=== PATIENT | female | born 1960 | race African-American/Black ===

== ENCOUNTER 2018-09-09 10:21 | Inpatient (IN) | payer OTHER ==
[2018-09-09 12:31] LABS: Troponin I 0.246 ng/mL (< 0.028)
[2018-09-09 12:50] LABS: HBSAB Concentration 2.49 mIU/mL; HBSAg Index 0.27 S/CO (0-0.99); Hep B Core Total Ab Non-Reactive (NonReactive); Hep B Core Total Index 0.12 S/CO (0-0.79); Hep B Surf AB Non-Reactive (NonReactive); Hep B Surf Ag Non-Reactive S/CO (NonReactive); Hep C IgG Ab Non-Reactive (NonReactive); Hep C Index 0.06 S/CO (0-0.79)
[2018-09-09] MEDS ORDERED: Dextrose 5% in Water 1,000 ML IV PRN (14:13)
[2018-09-09] MEDS ORDERED: Dextrose 50% Abboject 50 ML SYRINGE SLOW IVP PRN (14:13)
[2018-09-09] MEDS ORDERED: Bisacodyl 10 MG SUPP PR PRN (14:13)
[2018-09-09] MEDS ORDERED: Guaifenesin DM 100-10/5 ML UDCUP PO PRN (14:13)
[2018-09-09] MEDS ORDERED: HumaLOG 300 UNITS/3 ML VIAL SC PRN (14:13)
[2018-09-09] MEDS ORDERED: Senokot S 8.6-50 MG TAB PO PRN (14:13)
[2018-09-09 14:57] LABS: Iron 72 ug/dL (50-170); Iron Binding Capacity, Total 200 mcg/dL (265-497)
--- NOTE | 2018-09-09 15:10 | HP ---
REASON FOR ADMISSION: Acute renal failure, severe metabolic acidosis, acute encephalopathy, likely chronic anemia, hyperkalemia, volume overload with likely underlying CHF. HISTORY OF PRESENT ILLNESS: Please note majority of this history is obtained by talking to the patient's sister, who is here at bedside. They live together. She has been calling the Lord all the time from last 1 week or so. Her mind was not right. She was confused per sister. She tried to go out and sit in the porch in the sun despite the temperature going up to 90 degrees. She also mentions that a month back, she had gone to see her primary care physician and was told that she had kidney issues. She has a next followup in the next few days. She also has had a stent placed 4 months back at [facility] in [place]. Has complaints of shortness of breath, but says she ambulates by herself. She does not know if she had a stroke before. No complaints of chest pain or palpitation. No complaints of back pain or abdominal pain. No diarrhea. No nausea or vomiting. No fever. No cough or expectoration. PAST MEDICAL AND SURGICAL HISTORY: Likely CKD, coronary artery disease with stent placed 4 months back in [place] at [facility], diabetes mellitus type 2, hypertension, dyslipidemia, history of asthma, and left eye surgery in the past. CURRENT MEDICATIONS: The patient is on; 1. Potassium chloride 20 mEq p.o. daily. 2. Indapamide 2.5 mg daily. 3. Tradjenta 5 mg q.a.m. 4. Atorvastatin 10 mg p.o. at bedtime. 5. Lasix 40 mg p.o. daily. 6. Carvedilol 6.25 mg p.o. twice daily. 7. Metoprolol 25 mg daily. 8. Aspirin 81 mg p.o. daily. 9. Procardia XL 90 mg p.o. daily. ALLERGIES: ALLERGIC TO PENICILLIN. PERSONAL HISTORY: Does not abuse alcohol or drugs. No history of smoking. FAMILY HISTORY: Mother at the age of 59 years. She had known history of kidney cancer. Father of natural causes, apparently at 63 years of age. He also had tracheostomy, which they do not recall the exact cause and the exact word is (hole in the neck). Code status is full. Power of securities attorney is her son, Mr. Rosalia Ramirez. REVIEW OF SYSTEMS: CONSTITUTIONAL: Negative for weight loss or gain, ability to conduct usual activities. SKIN: Negative for rash, itching. EYES: Negative for double vision, pain. ENT/MOUTH: Negative for nose bleeding, neck stiffness, pain, tenderness. CARDIOVASCULAR: Negative for palpitations, dyspnea on exertion, orthopnea. RESPIRATORY: Negative for shortness of breath, wheezing, cough, hemoptysis, fever or night sweats. GASTROINTESTINAL: Negative for poor appetite, abdominal pain, heartburn, nausea , vomiting, constipation, or diarrhea. GENITOURINARY: Negative for urgency, frequency, dysuria, nocturia. MUSCULOSKELETAL: Negative for pain, swelling. NEUROLOGIC/PSYCHIATRIC: Negative for anxiety, depression. ALLERGY/IMMUNOLOGIC: Negative for skin rash, bleeding tendency. PHYSICAL EXAMINATION: GENERAL: The patient is a 58-year-old female, who is currently not in any acute distress. Responds well to verbal questions. VITAL SIGNS: Blood pressure 136/94; pulse 66 per minute; respiratory rate 20 per minute; temperature 94.2, rectal; and saturating 98% on room air. NECK: Supple. No elevated JVD. HEENT: Eyes; extraocular muscles intact. Pupils reacting to light. Oral cavity, mucous membranes are dry. No exudates or congestion. CARDIOVASCULAR SYSTEM: S1 and S2 heard. Regular rhythm. RESPIRATORY: Air entry 1+ bilateral. Scattered rales plus in the infrascapular area. ABDOMEN: Soft. Bowel sounds heard. No tenderness, rigidity, or guarding. EXTREMITIES: No peripheral edema or calf tenderness. VASCULAR SYSTEM: Peripheral pulses 1+ bilateral. No ischemic ulcers or gangrene. CENTRAL NERVOUS SYSTEM: The patient is currently responding well to verbal questions. She is not fully oriented, especially takes a long time to recall events. No focal deficits noted. Moves all 4 extremities. PSYCHIATRIC SYSTEM: No obvious hallucinations or delusions. LABORATORY DATA: H and H of 8 and 26, platelet count is 198, MCV is 94, and white count of 10 with 69% neutrophils. Venous blood gas done shows a pH of 7.03, pCO2 of 25, pO2 of 38, and bicarb of 6.9. Serum sodium is 140, potassium 5.1, serum bicarb is less than 8, serum chloride 117, BUN 154, creatinine 5.5, serum glucose 111, lactic acid 0.5, AST 32, ALT 56, alkaline phosphatase 680, and T-bili 0.9. CK levels 44, CK-MB 6.6, and troponin I 0.23. BNP 2112. Albumin 3.6. TSH 1.53. IMAGING DATA: Chest x-ray done shows pulmonary vascular congestion. CT brain without contrast shows left occipital and posterior parietal old infarct. Atrophy and chronic white matter ischemic changes are seen. No mass or bleed. EKG done shows sinus rhythm at 64 beats per minute with PVC seen. There is T inversion seen in V5, V6. QRS duration is 130 milliseconds, corrected QT is 480 milliseconds. CLINICAL IMPRESSION AND PLAN: The patient will be admitted to [facility] for new onset acute kidney injury with severe metabolic acidosis. The patient has had cardiac cath with stenting done 4 months back and was told she has kidney issues a month back. Prior to this, she had not known she had any kidney problems as such. We will hydrate her with half NS at 50 mL per hour. The patient also has volume overload and will be closely monitored. I have discussed her findings with Dr. Rehman for Nephrology and Dr. Boston, who is here to place hemodialysis catheter. She will be shortly dialyzed. In view of her recent stent, we will place her on aspirin, Plavix, and Lipitor. Small dose of Coreg will be continued as well. Nebulizers q.6 hourly. Echo with 2D Doppler for left ventricular function. Code status is full. I have discussed with the patient at bedside and her two sisters. We will obtain PT/OT evaluations as well as the patient was ambulating before. Her overall prognosis is guarded and we will closely monitor her in [facility] for now. Job ID: [id number] [facility]
[2018-09-09 15:16] LABS: Actual Bicarbonate (HCO3a) 10.2 mEq/L (22-28); Base Excess (BEa) -16.2 mEq/L (-2.0 to +3.0); CO2 Tension 26.4 mmHg (35.0-45.0); Carboxyhemoglobin (COHb) 1.3 gm% (0.0-3.0); Hemoglobin (Hb) 8.3 g/dL (12.0-16.0); O2 Tension (PaO2) 68.9 mmHg (80.0-100.0); Potassium - ABG Lab 4.61 mmol/L (3.70-5.30)
[2018-09-09 15:17] LABS: Puncture Site RRA; pH, Arterial 7.21 (7.35-7.45)
--- NOTE | 2018-09-09 15:49 | OP ---
DATE OF PROCEDURE: 09/09/2018 PREOPERATIVE DIAGNOSES: 1. Acute renal failure. 2. Severe acute metabolic acidosis secondary to acute renal failure. POSTOPERATIVE DIAGNOSES: 1. Acute renal failure. 2. Severe acute metabolic acidosis secondary to acute renal failure. PROCEDURE PERFORMED: Placement of right femoral Trialysis catheter for temporary dialysis. INDICATIONS FOR PROCEDURE: A 58-year-old woman, presented with malaise. Clinical examination was consistent with acute renal failure. I was asked to place a temporary dialysis catheter for emergent dialysis. DESCRIPTION OF PROCEDURE: Informed consent was obtained from the patient, who was placed in supine position. The right groin was sterilely prepped and draped in usual fashion. The right femoral artery was palpated and the skin medial to this was anesthetized with 1% lidocaine. Right femoral vein was cannulated with an 18-gauge introducer needle returning dark venous blood. Guidewire was passed through the needle and advanced to the right femoral vein without resistance. Needle was withdrawn over the guidewire. A stab incision was made adjacent to the guidewire using 11 scalpel. Dilator was passed over the guidewire dilating the subcutaneous tissue. The dilator was removed and a triple-lumen Trialysis catheter was advanced over the guidewire and placed in the right femoral vein down to the hub without resistance. Guidewire was removed. Dark venous blood was aspirated from all three ports, which were flushed first with saline followed by heparin. The catheter was secured to right groin using 3-0 nylon suture at two points. Sterile dressings were applied. The patient tolerated the procedure without any apparent complication and remains hemodynamically stable following completion of procedure. Job ID: [id number] [facility]
--- NOTE | 2018-09-09 16:30 | ULT ---
Renal sonogram HISTORY: Renal insufficiency. FINDINGS: Right kidney measures up to 10.0 cm length. No hydronephrosis. Multiple cortical cysts are present, measuring up to 1.9 cm at the superior pole. Urinary bladder is well distended without focal abnormality evident. The left kidney measures up to 11.6 cm without hydronephrosis. At the superior pole is a 2.0 cm cyst. IMPRESSION: No evidence of urinary tract obstruction. Small renal cysts
--- NOTE | 2018-09-09 18:00 | CON ---
DATE OF CONSULTATION: 09/09/2018 HISTORY OF PRESENT ILLNESS: Ms. Pereira is a very pleasant woman, who is admitted with acute renal failure. She is only a fair historian. 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 She could not tell me how long she has been retired. She has a doctor in the [place] area whom she sees. She says she has never been told she had kidney problems. She has been seen at [facility] in [place] in the past and had coronary stent placed. She has no complaints currently. PAST MEDICAL HISTORY: Remarkable for; 1. Diabetes for many years. She denies ever having been told she had any end- organ damage. 2. Hypertension. 3. History of lipid disorder. 4. Reported history of asthma. 5. History of eye surgery on the left. MEDICATIONS: Have been reviewed. SOCIAL HISTORY: She is a nonsmoker, nondrinker, nondrug user. ALLERGIES: SHE HAS A HISTORY OF ALLERGIES TO PENICILLIN. FAMILY HISTORY: There is a family history of cancer. REVIEW OF SYSTEMS: Ten point review of systems completed, otherwise negative. PHYSICAL EXAMINATION: GENERAL: She is very pleasant and actually looks much better than her blood gas would lead me to believe. VITAL SIGNS: Heart rates in the 70s, respiratory rate in the 20s, blood pressure has been in the 130 to 140 range while she is in the emergency department. HEENT: Sclerae are anicteric. Extraocular movements are full. Nose and throat are clear. NECK: Supple. LUNGS: Clear. HEART: Regular rhythm. S1 and S2 are normal. ABDOMEN: Soft and nontender. EXTREMITIES: Without clubbing, cyanosis, or edema. LABORATORY DATA: An arterial blood gas done on arrival in the intermediate care unit shows a pH of 7.21, CO2 of 26, PO2 of 68 on room air. Sodium 140, potassium 5.1, chloride 117, bicarb less than 8, BUN 154, creatinine 5.57, glucose 111. Her iron level is 72, TIBC is 200, consistent with chronic disease. ALT is 56, alkaline phosphatase is 680. BNP is 2112. Total serum protein is 8.4, globulin is 4.8. Hepatitis panel was negative with the exception of antibody of 2.4, which I do not felt to be a protective level. IMPRESSION: 1. Acute on chronic kidney disease with renal failure. A dialysis catheter has been placed. 2. Severe metabolic acidosis that is well compensated for, I guess because she is in her 50s. She has no signs of muscle fatigue. No need for intubation at this time. I suspect her acid-base disorder will resolve with dialysis. 3. Diabetes. 4. Anemia of chronic disease. 5. Isolated elevation of alkaline phosphatase. 6. Elevated serum protein and serum globulin fraction. She needs serum protein electrophoresis. We will follow with the other physicians caring for her. If she improves overnight with dialysis, Surgery should be consulted for long-term access and she could be transferred out of the intermediate care tomorrow if she remains stable. This is a 50-minute consult, with greater than 50% of the time spent on the unit coordinating care. Job ID: [id number] [facility]
[2018-09-09] MEDS: Carvedilol 6.25 MG TAB PO SCH (18:24)
[2018-09-09 18:51] LABS: Actual Bicarbonate (HCO3a) 15.3 mEq/L (22-28); Base Excess (BEa) -7.2 mEq/L (-2.0 to +3.0); Calcium, Ionized 1.12 mmol/L (1.12-1.30); Carboxyhemoglobin (COHb) 0.2 gm% (0.0-3.0); Hemoglobin (Hb) 8.7 g/dL (12.0-16.0); Potassium - ABG Lab 3.47 mmol/L (3.70-5.30); pH, Arterial 7.46 (7.35-7.45)
[2018-09-09 19:01] LABS: Puncture Site RBRACH
[2018-09-09 19:45] LABS: Anion Gap 20 mmol/L (10-20); BUN (Urea Nitrogen) 87 mg/dL (9.8-20.1); Calc. Creatinine Clearance 25 mL/min (70-130); Calcium 9.1 mg/dL (7.8-10.44); Carbon Dioxide 16 mmol/L (22-29); Chloride 108 mmol/L (98-107); Estimated GFR-MDRD 19; Glucose 106 mg/dL (70-105); Potassium 3.5 mmol/L (3.5-5.1); Sodium 140 mmol/L (136-145)
[2018-09-09 20:14] LABS: #Eosinphils 0.1 thou/uL (0.0-0.7); #Lymphocytes 1.7 thou/uL (1.20-3.40); #Monocytes 0.4 thou/uL (0.11-0.59); %Basophils 0.3 % (0.0-1.0); %Eosinophils 0.8 % (0.0-10.0); %Lymphocytes 18.3 % (21.0-51.0); %Monocytes 4.2 % (0.0-10.0); %Neutrophils 76.4 % (42.0-75.0); Hemoglobin 8.3 g/dL (12.0-16.0); Mean Corpuscular HGB CONC 32.7 g/dL (32.0-36.0); Mean Corpuscular Hemoglobin 30.3 pg (27.0-31.0); Mean Corpuscular Volume 92.6 fL (78.0-98.0); Platelet Count 203 thou/uL (130-400); RBC Distribution Width 12.9 % (11.5-14.5); Red Blood Cell (RBC) Count 2.73 mill/uL (4.20-5.40); White Blood Cell (WBC) Count 9.1 thou/uL (4.8-10.8)
[2018-09-09] MEDS: Atorvastatin Calcium 20 MG TAB PO SCH (20:49)
[2018-09-09] MEDS: Heparin 5,000 UNITS/ML VIAL SC SCH (20:49)
--- NOTE | 2018-09-09 20:59 | CON ---
DATE OF CONSULTATION: 09/09/2018 CONSULTING PHYSICIAN: Dr. Marlow. REASON FOR CONSULTATION: MANA. REASON FOR ADMISSION: Altered mentation. HISTORY OF PRESENT ILLNESS: A 58-year-old female, history of type 2 diabetes, hypertension, hyperlipidemia, came to the hospital with above complaints and Nephrology consulted for elevated creatinine. The patient is confused and not able to give a good history, and most of the records were obtained from the review of the records. PAST MEDICAL HISTORY: Positive for type 2 diabetes, hyperlipidemia, hypertension, COPD, asthma. PAST SURGICAL HISTORY: Left eye surgery. HOME MEDICATIONS: 1. Potassium. 2. Indapamide. 3. Tradjenta. 4. Atorvastatin. 5. Furosemide. ALLERGIES: NO KNOWN DRUG ALLERGIES. SOCIAL HISTORY: No smoking, alcohol, or illicit drug abuse. FAMILY HISTORY: No history of kidney disease. REVIEW OF SYSTEMS: Could not be obtained due to confusion. PHYSICAL EXAMINATION: GENERAL: This is a well-built female, confused. VITAL SIGNS: Temperature 98.6, pulse 65, respiratory rate 22, blood pressure 137/93. HEENT: Atraumatic, normocephalic. Oral mucosa is moist. NECK: Supple. CV: S1 and S2 heard. Rate and rhythm regular. RESPIRATORY: Clear. GI: Abdomen is soft MUSCULOSKELETAL: 1+ edema. DERMATOLOGIC: No skin rash. NEUROLOGIC: Confused. LABORATORY DATA: Hemoglobin is 8.3, potassium 5.8, bicarb was 8, creatinine 5.57. ASSESSMENT AND PLAN: 1. Acute kidney injury on chronic kidney disease with severe hyperkalemia and acidosis and uremic encephalopathy. Plan is to start on dialysis. 2. Cardiorenal syndrome. We will have fluid removal as tolerated. 3. Edema. 4. Anemia. We will check CKD labs. Plan is to start on dialysis and we will follow. Thank you for the consult. Job ID: [id number]
[2018-09-09] MEDS ORDERED: Magnesium 2 GM/50 ML 2 GM in Premix Bag 1 BAG IVPB SCH (23:00)
[2018-09-10] MEDS: Ondansetron PF 4 MG/2 ML Vial IVP PRN ×2 (00:35→12:43)
[2018-09-10] MEDS: Metoclopramide HCl 10 MG/2 ML VIAL IVP PRN ×2 (01:38→11:23)
[2018-09-10 04:31] LABS: #Lymphocytes 1.3 thou/uL (1.20-3.40); #Monocytes 0.5 thou/uL (0.11-0.59); #Neutrophils 7.6 thou/uL (1.40-6.50); %Basophils 0.2 % (0.0-1.0); %Eosinophils 0.3 % (0.0-10.0); %Lymphocytes 13.6 % (21.0-51.0); %Neutrophils 80.9 % (42.0-75.0); Hemoglobin 8.5 g/dL (12.0-16.0); Mean Corpuscular HGB CONC 32.6 g/dL (32.0-36.0); Mean Corpuscular Hemoglobin 30.3 pg (27.0-31.0); Mean Corpuscular Volume 92.9 fL (78.0-98.0); Mean Platelet Volume 9.4 fL (7.4-10.4); Platelet Count 209 thou/uL (130-400); RBC Distribution Width 12.9 % (11.5-14.5); White Blood Cell (WBC) Count 9.4 thou/uL (4.8-10.8)
[2018-09-10 04:56] LABS: Albumin 3.5 g/dL (3.5-5.0); Anion Gap 22 mmol/L (10-20); BUN (Urea Nitrogen) 94 mg/dL (9.8-20.1); BUN/Creatinine Ratio 27.41; Calc. Creatinine Clearance 22 mL/min (70-130); Calcium 8.8 mg/dL (7.8-10.44); Carbon Dioxide 13 mmol/L (22-29); Chloride 110 mmol/L (98-107); Estimated GFR-MDRD 17; Glucose 102 mg/dL (70-105); Magnesium 2.1 mg/dL (1.6-2.6); Phosphorus 4.9 mg/dL (2.3-4.7); Potassium 3.8 mmol/L (3.5-5.1); Sodium 141 mmol/L (136-145)
--- NOTE | 2018-09-10 10:01 | PRG ---
DATE OF SERVICE: 09/10/2018 SUBJECTIVE: Ms. Pereira is doing well with dialysis. Her acid-base disorder was fixed immediately. Her post dialysis blood gas showed pH 7.46, CO2 22, and pO2 of 71. OBJECTIVE: VITAL SIGNS: Remained stable. She is afebrile. Heart rate is in the 90s. Oximetry is 100% on 2 L. Blood pressure is actually high at 173/102. LABORATORY DATA: Sodium is 141, potassium 3.8, chloride 110, BUN 94, creatinine 3.43. Her bicarb 13 this morning. PLAN: I would think she would benefit from dialysis again today given her ongoing acid-base disorder, her anion gap is 18 today. She appears to be medically stable. We will see her as needed. Job ID: [id number]
[2018-09-10] MEDS ORDERED: hydrALAZINE 20 MG/ML VIAL SLOW IVP SCH (11:45)
[2018-09-10] MEDS ORDERED: Epoetin (ESRD) 20,000 UNITS/ML SC SCH (13:45)
[2018-09-10] MEDS: Heparin 5,000 UNITS/ML VIAL SC SCH ×2 (13:58→20:59)
[2018-09-10] MEDS: Clopidogrel Bisulfate 75 MG TAB PO SCH (14:00)
[2018-09-10] MEDS ORDERED: EPOETIN ALFA-EPBX (ESRD) 10,000 UNIT/ML VIAL SC SCH (14:00)
[2018-09-10] MEDS: Aspirin Chewable 81 MG TAB PO SCH (14:01)
[2018-09-10] MEDS: Carvedilol 6.25 MG TAB PO SCH ×2 (14:15→21:36)
--- NOTE | 2018-09-10 14:16 | PRG ---
DATE OF SERVICE: 09/10/2018 SUBJECTIVE: Patient was seen and examined at bedside and overnight events noted. Patient denies any shortness of breath or chest pain or palpitation. No history of nausea or vomiting or diarrhea or fever or chills or cramps. OBJECTIVE: GENERAL: This is a well-built female in no apparent distress. VITAL SIGNS: Temperature . Heart rate 91. Respiratory rate 18. Blood pressure 158/92. HEENT: Atraumatic, normocephalic. Oral mucosa is moist NECK: Supple. CARDIOVASCULAR: S1, S2 heard. Rate and rhythm regular. RESPIRATORY: Clear to auscultation. GASTROINTESTINAL: Abdomen is soft. MUSCULOSKELETAL: No tenderness. No edema. DERMATOLOGIC: No skin rash. NEUROLOGIC: Alert and awake and oriented X3. No focal neurologic deficits. Moving all the extremities. PSYCHIATRIC: Mood and affect normal. LABORATORY DATA: Potassium is 3.8, BUN is 94, creatinine is 3.4. Vitamin D 8.2, PTH is . ASSESSMENT AND PLAN: 1. Acute kidney injury on chronic kidney disease, stage unknown. Dependent currently on dialysis. The patient had dialysis today, tolerated well. 2. Uremic encephalopathy, possibly getting better. 3. Severe hyperkalemia, better. 4. Severe acidosis, getting better. We will monitor. 5. Vitamin D deficiency with secondary hyperparathyroidism and started on vitamin D. 6. Anemia of chronic kidney disease. We will add Epogen. Iron levels are adequate. 7. Plan is to continue on dialysis with close monitoring of renal function and urine output. We will follow. Baseline is not known at this point. Job ID: [id number]
[2018-09-10] MEDS ORDERED: Heparin 10,000 UNITS/1 ML VIAL ONE (15:00)
--- NOTE | 2018-09-10 15:51 | PDOC.PN ---
- Subjective Encounter Start Date: 09/10/18 Encounter Start Time: 10:30 Subjective: is getting HD -: fully oriented this am, no sob or abd pain -: no nausea - Objective Resuscitation Status - Order Detail: 09/09/18 14:08 Resuscitation Status Routine Resuscitation Status: FULL: Full Resuscitation MAR Reviewed: Yes Vital Signs & Weight: Vital Signs (12 hours) Temp Pulse Pulse Pulse Pulse Resp BP 09/10/18 14:15 150/105 H 09/10/18 13:31 101 H 21 H 09/10/18 13:10 92 92 09/10/18 13:09 90 90 89 09/10/18 12:43 91 09/10/18 11:33 98.2 F 09/10/18 07:51 97.6 F 91 19 BP BP BP Pulse Ox Pulse Ox Pulse Ox Pulse Ox 09/10/18 14:15 09/10/18 13:31 100 09/10/18 13:10 154/101 H 150/77 H 94 L 98 09/10/18 13:09 154/101 H 145/99 H 150/77 H 100 99 99 09/10/18 12:43 09/10/18 11:33 09/10/18 07:51 100 Weight Admit Weight 166 lb 14.239 oz Weight 157 lb Most Recent Monitor Data Heart Rate from ECG 88 NIBP 173/102 NIBP BP-Mean 125 Respiration from ECG 26 SpO2 96 I&O: 09/09/18 09/10/18 09/11/18 06:59 06:59 06:59 Intake Total 100 Balance 100 Result Diagrams: 09/10/18 04:12 09/10/18 04:12 Additional Labs: Accuchecks 09/10/18 09/10/18 09/09/18 10:39 05:49 20:38 POC Glucose 111 H 109 82 09/09/18 09/09/18 18:47 16:10 POC Glucose 110 187 H Phys Exam - Physical Examination HEENT: PERRLA, sclera anicteric dry mucosa Neck: no JVD, supple Respiratory: no wheezing, no rales Cardiovascular: RRR, no significant murmur has subcut emphysema over chest wall Gastrointestinal: soft, non-tender, positive bowel sounds Musculoskeletal: no edema, pulses present Neurological: non-focal, moves all 4 limbs Psychiatric: normal affect, A&O x 3 Dx/Plan (1) Acute renal failure Status: Acute Qualifiers: Acute renal failure type: unspecified Qualified Code(s): N17.9 - Acute kidney failure, unspecified (2) Metabolic acidosis Code(s): E87.2 - ACIDOSIS Status: Acute (3) CAD (coronary artery disease) Code(s): I25.10 - ATHSCL HEART DISEASE OF [place] CORONARY ARTERY W/O ANG PCTRS Status: Chronic Qualifiers: Coronary Disease-Associated Artery/Lesion type: [place] artery [place] vs. transplanted heart: [place] heart Associated angina: without angina Qualified Code(s): I25.10 - Atherosclerotic heart disease of [place] coronary artery without angina pectoris (4) HTN (hypertension) Code(s): I10 - ESSENTIAL (PRIMARY) HYPERTENSION Status: Chronic Qualifiers: Hypertension type: essential hypertension Qualified Code(s): I10 - Essential (primary) hypertension (5) Dyslipidemia Code(s): E78.5 - HYPERLIPIDEMIA, UNSPECIFIED Status: Chronic (6) Hyperkalemia Code(s): E87.5 - HYPERKALEMIA Status: Resolved (7) H/O: CVA (cerebrovascular accident) Code(s): Z86.73 - PRSNL HX OF TIA (TIA), AND CEREB INFRC W/O RESID DEFICITS Status: Chronic - Plan had back to back HD, acidosis is slowly resolving -: had confusion after HD yesterday, had 700ml removed yest -: will have 2 liters removed today -: will have PT/OT to mobilize her after HD -: has mild chest wall subcut emphysema? * . continue asp, plavix, lipitor, coreg and nebs. D/w patient and youngest sister at bedside Review of Systems - Medications/Allergies Allergies/Adverse Reactions: Allergies Allergy/AdvReac Type Severity Reaction Status Date / Time Penicillins Allergy Verified 09/09/18 15:25 Medications: Current Medications Acetaminophen (Tylenol) 650 mg PO Q4H PRN PRN Reason: Headache/Fever/Mild Pain (1-3) Albuterol/Ipratropium (Duoneb) 3 ml NEB [id number] ROBBIE Last Admin: 09/10/18 13:31 Dose: 3 ml Aspirin (Aspirin Chewable) 81 mg PO DAILY ROBBIE Last Admin: 09/10/18 14:01 Dose: 81 mg Atorvastatin Calcium (Lipitor) 20 mg PO HS ROBBIE Last Admin: 09/09/18 20:49 Dose: Not Given Bisacodyl (Dulcolax) 10 mg MA DAILYPRN PRN PRN Reason: Constipation Carvedilol (Coreg) 6.25 mg PO BID-[facility] Last Admin: 09/10/18 14:15 Dose: 6.25 mg Cholecalciferol (Vitamin D3) 2,000 units PO BID [facility] Clopidogrel Bisulfate (Plavix) 75 mg PO DAILY [facility] Last Admin: 09/10/18 14:00 Dose: 75 mg Dextrose/Water (Dextrose 50%) 25 gm SLOW IVP PRN PRN PRN Reason: Hypoglycemia Epoetin Doyle-epbx (Retacrit) 10,000 unit SC Q7D [facility] Last Admin: 09/10/18 14:47 Dose: 10,000 unit Glucagon (Glucagon) 1 mg IM PRN PRN PRN Reason: Hypoglycemia Guaifenesin/Dextromethorphan (Robitussin Dm) 15 ml PO Q4H PRN PRN Reason: Cough Heparin Sodium (Porcine) (Heparin) 5,000 units SC BID [facility] Last Admin: 09/10/18 13:58 Dose: Not Given Hydralazine HCl (Apresoline) 10 mg SLOW IVP Q4H PRN PRN Reason: SBP Greater Than 170 Dextrose/Water (D5w) 1,000 mls @ 0 mls/hr IV .Q0M PRN PRN Reason: Hypoglycemia Insulin Human Lispro (Humalog) 0 units SC .MODERATE SLIDING SC PRN PRN Reason: Moderate Correctional Scale Insulin Human Lispro (Humalog) 0 units SC .BEDTIME SLIDING SC PRN PRN Reason: Bedtime Correctional Scale Metoclopramide HCl (Reglan) 10 mg IVP Q6H PRN PRN Reason: Nausea/Vomiting Last Admin: 09/10/18 11:23 Dose: 10 mg Ondansetron HCl (Zofran) 4 mg IVP Q6H PRN PRN Reason: Nausea/Vomiting Last Admin: 09/10/18 12:43 Dose: 4 mg Pantoprazole Sodium (Protonix) 40 mg PO DAILY [facility] Last Admin: 09/10/18 14:16 Dose: 40 mg Senna/Docusate Sodium (Senokot S) 2 tab PO BID PRN PRN Reason: Constipation Sodium Chloride (Flush - Normal Saline) 10 ml IVF Q12HR ROBBIE Sodium Chloride (Flush - Normal Saline) 10 ml IVF PRN PRN PRN Reason: Saline Flush
[2018-09-10] MEDS ORDERED: hydrALAZINE 20 MG/ML VIAL SLOW IVP PRN (16:00)
[2018-09-10] MEDS: Atorvastatin Calcium 20 MG TAB PO SCH ×2 (21:00→21:36)
[2018-09-11] MEDS ORDERED: Cepastat Lozenges 1 LOZ PO PRN (00:09)
[2018-09-11 05:10] LABS: Albumin 3.3 g/dL (3.5-5.0); Anion Gap 17 mmol/L (10-20); BUN (Urea Nitrogen) 68 mg/dL (9.8-20.1); BUN/Creatinine Ratio 20.54; Calc. Creatinine Clearance 21 mL/min (70-130); Calcium 9.6 mg/dL (7.8-10.44); Carbon Dioxide 22 mmol/L (22-29); Chloride 107 mmol/L (98-107); Estimated GFR-MDRD 17; Glucose 130 mg/dL (70-105); Magnesium 1.8 mg/dL (1.6-2.6); Phosphorus 4.6 mg/dL (2.3-4.7); Potassium 3.7 mmol/L (3.5-5.1); Sodium 142 mmol/L (136-145)
[2018-09-11] MEDS: hydrALAZINE 25 MG TAB PO SCH ×3 (09:32→21:20)
[2018-09-11] MEDS: Aspirin Chewable 81 MG TAB PO SCH (09:32)
[2018-09-11] MEDS: Clopidogrel Bisulfate 75 MG TAB PO SCH (09:32)
[2018-09-11] MEDS: Isosorbide Dinitrate 20 MG TAB PO SCH ×3 (09:32→21:20)
[2018-09-11] MEDS: Heparin 5,000 UNITS/ML VIAL SC SCH ×2 (09:33→21:20)
[2018-09-11] MEDS: Carvedilol 6.25 MG TAB PO SCH (09:33)
--- NOTE | 2018-09-11 13:15 | CON ---
DATE OF CONSULTATION: 09/11/2018 REASON FOR CONSULTATION: Cardiomyopathy and dysrhythmia. PRIMARY MOLDER INFLATED BALL: None. HISTORY OF PRESENT ILLNESS: Ms. Pereira is a 58-year-old woman with previous history of CAD, status post stent placement. She also appears to have a history of cardiomyopathy. She is a very poor historian. Most of the history is obtained from her sister. This is over the phone. She re-presented to the hospital with encephalopathy and metabolic acidosis. From a CV standpoint, she states she had a stent placement 1 to 1-1/2 years ago. Vessels were unknown. Her sister does state she remembers having told she had a weak heart. She has also had SVT as well as pauses less than 3 seconds noted, but likely related to electrolyte disturbance. She does not complain of chest pain, pressure, or associated symptoms. PAST MEDICAL HISTORY: CAD, status post stent placement; hypertension; hyperlipidemia; diabetes mellitus; chronic kidney disease; eye surgery; asthma. HOME MEDICATIONS: Include 1. Tradjenta. 2. Atorvastatin. 3. Potassium. 4. Indapamide. 5. Lasix. 6. Carvedilol. 7. Aspirin. 8. Procardia. ALLERGIES: PENICILLIN. SOCIAL HISTORY: No current tobacco or alcohol use. REVIEW OF SYSTEM: Ten-point review of systems is reviewed and as above, otherwise negative. PHYSICAL EXAMINATION: GENERAL: Patient is a pleasant female who is in no acute distress. The patient appears their stated age. VITAL SIGNS: Blood pressure 160/64, pulse 89, respirations 20. NEUROLOGIC: The patient is alert and oriented x3 with no focal neurologic deficits. HEENT: Sclerae without icterus. Mouth has moist mucous membranes with normal pallor. NECK: No JVD. Carotid upstroke brisk. No bruits bilaterally. LUNGS: Clear to auscultation with unlabored respirations. BACK: No scoliosis or kyphosis. CARDIAC: Regular rate and rhythm with normal S1 and S2. No S3 or S4 noted. No significant rubs, murmurs, thrills, or gallops noted throughout the precordium. PMI is not displaced. There is no parasternal heave. ABDOMEN: Soft, nontender, nondistended. No peritoneal signs present. No hepatosplenomegaly. No abnormal striae. EXTREMITIES: 2+ femoral and 2+ dorsalis pedis pulses. No cyanosis, clubbing, or edema. SKIN: No gross abnormalities. Echo Doppler shows LVEF 30% to 35% with moderate MR present. Severely elevated pulmonary pressures are noted. PERTINENT LABORATORY DATA: Hemoglobin 8.5. Creatinine 3.3, BUN 68, albumin 3.3. Initial CO2 of 16, magnesium of 1.3, now 2.1. IMPRESSION: 1. Cardiomyopathy, likely ischemic. 2. Chronic kidney disease. 3. Coronary artery disease. 4. Status post stent placement. RECOMMENDATIONS: The patient has had dysrhythmia as noted suggesting supraventricular tachycardia as well as pauses. 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 I will discuss with EP on their return on Thursday. 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 This may also be due to electrolyte derangement. At this point, we recommend close monitoring. Would avoid beta chioma therapy given her pauses and intermittent bradycardia. We may consider digoxin, but may end up with bradycardia. At this point, she does not appear to have symptoms from her dysrhythmia. She is currently on Coreg 6.25 b.i.d., we will decrease to 3.125 b.i.d. Job ID: [id number]
--- NOTE | 2018-09-11 13:45 | PDOC.PN ---
- Subjective Encounter Start Date: 09/11/18 Encounter Start Time: 08:00 Subjective: awake, no sob or palp or chest pain - Objective Resuscitation Status - Order Detail: 09/09/18 14:08 Resuscitation Status Routine Resuscitation Status: FULL: Full Resuscitation MAR Reviewed: Yes Vital Signs & Weight: Vital Signs (12 hours) Temp Pulse Resp BP Pulse Ox 09/11/18 11:05 97.3 F L 09/11/18 09:33 150/105 H 09/11/18 09:32 89 09/11/18 08:15 97 09/11/18 07:48 89 22 H 93 L 09/11/18 07:29 97.9 F 09/11/18 03:56 98.8 F Weight Admit Weight 166 lb 14.239 oz Weight 157 lb Most Recent Monitor Data Heart Rate from ECG 76 NIBP 139/75 NIBP BP-Mean 96 Respiration from ECG 20 SpO2 96 I&O: 09/10/18 09/11/18 09/12/18 06:59 06:59 06:59 Intake Total 100 Balance 100 Result Diagrams: 09/10/18 04:12 09/11/18 03:59 Additional Labs: Accuchecks 09/11/18 09/11/18 09/10/18 10:47 05:47 19:54 POC Glucose 180 H 127 H 156 H 09/10/18 09/10/18 16:22 09:23 POC Glucose 194 H 110 Phys Exam - Physical Examination HEENT: PERRLA, moist MMs Neck: no JVD, supple Respiratory: no wheezing, no rales Cardiovascular: RRR, no significant murmur Gastrointestinal: soft, non-tender, positive bowel sounds Musculoskeletal: no edema, pulses present Neurological: non-focal, moves all 4 limbs Psychiatric: normal affect, A&O x 3 Dx/Plan (1) Acute renal failure Status: Acute Qualifiers: Acute renal failure type: unspecified Qualified Code(s): N17.9 - Acute kidney failure, unspecified (2) Metabolic acidosis Code(s): E87.2 - ACIDOSIS Status: Acute (3) CAD (coronary artery disease) Code(s): I25.10 - ATHSCL HEART DISEASE OF [place] CORONARY ARTERY W/O ANG PCTRS Status: Chronic Qualifiers: Coronary Disease-Associated Artery/Lesion type: [place] artery [place] vs. transplanted heart: [place] heart Associated angina: without angina Qualified Code(s): I25.10 - Atherosclerotic heart disease of [place] coronary artery without angina pectoris (4) HTN (hypertension) Code(s): I10 - ESSENTIAL (PRIMARY) HYPERTENSION Status: Chronic Qualifiers: Hypertension type: essential hypertension Qualified Code(s): I10 - Essential (primary) hypertension (5) Dyslipidemia Code(s): E78.5 - HYPERLIPIDEMIA, UNSPECIFIED Status: Chronic (6) Hyperkalemia Code(s): E87.5 - HYPERKALEMIA Status: Resolved (7) H/O: CVA (cerebrovascular accident) Code(s): Z86.73 - PRSNL HX OF TIA (TIA), AND CEREB INFRC W/O RESID DEFICITS Status: Chronic - Plan hemostable -: had 2 sec pauses on telemetry, coreg is reduced to 3.125 mg bid -: add bidil, has low ef of 30%, cardio consultation -: will likely need HD, very minimal urine output -: met acidosis is mostly resolved, electrolytes are stabilizing * . PT to mobilize as tolerated Is awaiting tele bed continue asp, plavix, lipitor, nebs prn Review of Systems - Medications/Allergies Allergies/Adverse Reactions: Allergies Allergy/AdvReac Type Severity Reaction Status Date / Time Penicillins Allergy Verified 09/09/18 15:25 Medications: Current Medications Acetaminophen (Tylenol) 650 mg PO Q4H PRN PRN Reason: Headache/Fever/Mild Pain (1-3) Albuterol/Ipratropium (Duoneb) 3 ml NEB Q6H PRN PRN Reason: SOB/WHEEZING Aspirin (Aspirin Chewable) 81 mg PO DAILY [facility] Last Admin: 09/11/18 09:32 Dose: 81 mg Atorvastatin Calcium (Lipitor) 20 mg PO HS [facility] Last Admin: 09/10/18 21:36 Dose: Not Given Bisacodyl (Dulcolax) 10 mg [place] DAILYPRN PRN PRN Reason: Constipation Carvedilol (Coreg) 3.125 mg PO BID-[facility] Cholecalciferol (Vitamin D3) 2,000 units PO BID [facility] Last Admin: 09/11/18 09:32 Dose: 2,000 units Clopidogrel Bisulfate (Plavix) 75 mg PO DAILY [facility] Last Admin: 09/11/18 09:32 Dose: 75 mg Dextrose/Water (Dextrose 50%) 25 gm SLOW IVP PRN PRN PRN Reason: Hypoglycemia Epoetin Doyle-epbx (Retacrit) 10,000 unit SC Q7D [facility] Last Admin: 09/10/18 14:47 Dose: 10,000 unit Glucagon (Glucagon) 1 mg IM PRN PRN PRN Reason: Hypoglycemia Guaifenesin/Dextromethorphan (Robitussin Dm) 15 ml PO Q4H PRN PRN Reason: Cough Heparin Sodium (Porcine) (Heparin) 5,000 units SC BID [facility] Last Admin: 09/11/18 09:33 Dose: 5,000 units Hydralazine HCl (Apresoline) 10 mg SLOW IVP Q4H PRN PRN Reason: SBP Greater Than 170 Hydralazine HCl (Apresoline) 25 mg PO TID [facility] Last Admin: 09/11/18 09:32 Dose: 25 mg Dextrose/Water (D5w) 1,000 mls @ 0 mls/hr IV .Q0M PRN PRN Reason: Hypoglycemia Insulin Human Lispro (Humalog) 0 units SC .MODERATE SLIDING SC PRN PRN Reason: Moderate Correctional Scale Insulin Human Lispro (Humalog) 0 units SC .BEDTIME SLIDING SC PRN PRN Reason: Bedtime Correctional Scale Isosorbide Dinitrate (Isordil) 10 mg PO TID [facility] Last Admin: 09/11/18 09:32 Dose: 10 mg Metoclopramide HCl (Reglan) 10 mg IVP Q6H PRN PRN Reason: Nausea/Vomiting Last Admin: 09/10/18 11:23 Dose: 10 mg Ondansetron HCl (Zofran) 4 mg IVP Q6H PRN PRN Reason: Nausea/Vomiting Last Admin: 09/10/18 12:43 Dose: 4 mg Pantoprazole Sodium (Protonix) 40 mg PO DAILY [facility] Last Admin: 09/11/18 09:32 Dose: 40 mg Senna/Docusate Sodium (Senokot S) 2 tab PO BID PRN PRN Reason: Constipation Sodium Chloride (Flush - Normal Saline) 10 ml IVF Q12HR [facility] Last Admin: 09/11/18 09:33 Dose: 10 ml Sodium Chloride (Flush - Normal Saline) 10 ml IVF PRN PRN PRN Reason: Saline Flush Throat Lozenges (Cepastat Lozenges) 1 neftaly PO PRN PRN PRN Reason: Sore Throat Last Admin: 09/11/18 03:48 Dose: 1 neftaly
[2018-09-11] MEDS: Carvedilol 3.125 MG TAB PO SCH (15:51)
[2018-09-11] MEDS: Atorvastatin Calcium 20 MG TAB PO SCH (21:21)
[2018-09-12 04:05] LABS: Albumin 3.1 g/dL (3.5-5.0); Anion Gap 11 mmol/L (10-20); BUN (Urea Nitrogen) 67 mg/dL (9.8-20.1); BUN/Creatinine Ratio 17.87; Calc. Creatinine Clearance 19 mL/min (70-130); Calcium 9.4 mg/dL (7.8-10.44); Carbon Dioxide 24 mmol/L (22-29); Chloride 107 mmol/L (98-107); Estimated GFR-MDRD 15; Glucose 137 mg/dL (70-105); Phosphorus 3.5 mg/dL (2.3-4.7); Potassium 3.4 mmol/L (3.5-5.1); Sodium 139 mmol/L (136-145)
--- NOTE | 2018-09-12 09:01 | PDOC.CTH ---
Cardiology Progress Note - Subjective No complaints today - Objective Vital Signs Temp Pulse BP Pulse Ox 09/12/18 07:59 98 09/12/18 07:20 97.8 F 09/12/18 03:36 97.8 F 09/11/18 23:45 99.2 F 09/11/18 21:20 83 150/105 H Admit Weight 166 lb 14.239 oz Weight 157 lb 09/11/18 09/12/18 09/13/18 06:59 06:59 06:59 Intake Total 650 Balance 650 - Physical Examination General/Neuro: alert & oriented x3, NAD Neck: carotid US brisk, no JVD present Lungs: unlabored respirations Heart: RRR Abdomen: NT/ND, soft Extremities: + femoral B - Labs Result Diagrams: 09/10/18 04:12 09/12/18 03:36 Troponin/CKMB Troponin I 0.246 ng/mL (< 0.028) H 09/09/18 11:52 - Assessment/Plan SVT Ischemic CM, chronic ESRD SVT with pauses Changes in rhythm likely secondary to electrolyte disturbance. No further changes noted. Consult EP in am Difficult to increase BB secondary to pauses ?ablation, ICD Need old records
[2018-09-12] MEDS: hydrALAZINE 25 MG TAB PO SCH ×3 (09:23→20:20)
[2018-09-12] MEDS: Clopidogrel Bisulfate 75 MG TAB PO SCH (09:24)
[2018-09-12] MEDS: Isosorbide Dinitrate 20 MG TAB PO SCH ×3 (09:24→20:21)
[2018-09-12] MEDS: Carvedilol 3.125 MG TAB PO SCH ×2 (09:25→16:11)
[2018-09-12] MEDS: Aspirin Chewable 81 MG TAB PO SCH (09:26)
[2018-09-12] MEDS: Heparin 5,000 UNITS/ML VIAL SC SCH ×2 (09:27→21:10)
--- NOTE | 2018-09-12 11:43 | PDOC.PN ---
- Subjective Encounter Start Date: 09/12/18 Encounter Start Time: 10:55 Subjective: no sob or palp -: has not ambulated much - Objective Resuscitation Status - Order Detail: 09/09/18 14:08 Resuscitation Status Routine Resuscitation Status: FULL: Full Resuscitation MAR Reviewed: Yes Vital Signs & Weight: Vital Signs (12 hours) Temp Pulse BP Pulse Ox 09/12/18 11:31 97.7 F 09/12/18 09:23 91 149/72 H 09/12/18 07:59 98 09/12/18 07:20 97.8 F 09/12/18 03:36 97.8 F 09/11/18 23:45 99.2 F Weight Admit Weight 166 lb 14.239 oz Weight 157 lb Most Recent Monitor Data Heart Rate from ECG 78 NIBP 127/67 NIBP BP-Mean 87 Respiration from ECG 27 SpO2 100 I&O: 09/11/18 09/12/18 09/13/18 06:59 06:59 06:59 Intake Total 650 Balance 650 Result Diagrams: 09/10/18 04:12 09/12/18 03:36 Additional Labs: Accuchecks 09/12/18 09/12/18 09/11/18 10:33 05:52 19:50 POC Glucose 187 H 166 H 238 H 09/11/18 16:34 POC Glucose 143 H Phys Exam - Physical Examination HEENT: PERRLA, moist MMs Neck: no JVD, supple Respiratory: no wheezing, no rales Cardiovascular: RRR, no significant murmur Gastrointestinal: soft, non-tender, positive bowel sounds Musculoskeletal: pulses present, edema present Neurological: non-focal, moves all 4 limbs Psychiatric: normal affect, A&O x 3 Dx/Plan (1) Acute renal failure Status: Acute Qualifiers: Acute renal failure type: unspecified Qualified Code(s): N17.9 - Acute kidney failure, unspecified (2) Metabolic acidosis Code(s): E87.2 - ACIDOSIS Status: Resolved (3) CAD (coronary artery disease) Code(s): I25.10 - ATHSCL HEART DISEASE OF [place] CORONARY ARTERY W/O ANG PCTRS Status: Chronic Qualifiers: Coronary Disease-Associated Artery/Lesion type: [place] artery [place] vs. transplanted heart: [place] heart Associated angina: without angina Qualified Code(s): I25.10 - Atherosclerotic heart disease of [place] coronary artery without angina pectoris (4) HTN (hypertension) Code(s): I10 - ESSENTIAL (PRIMARY) HYPERTENSION Status: Chronic Qualifiers: Hypertension type: essential hypertension Qualified Code(s): I10 - Essential (primary) hypertension (5) Dyslipidemia Code(s): E78.5 - HYPERLIPIDEMIA, UNSPECIFIED Status: Chronic (6) Hyperkalemia Code(s): E87.5 - HYPERKALEMIA Status: Resolved (7) H/O: CVA (cerebrovascular accident) Code(s): Z86.73 - PRSNL HX OF TIA (TIA), AND CEREB INFRC W/O RESID DEFICITS Status: Chronic (8) Cardiomyopathy Code(s): I42.9 - CARDIOMYOPATHY, UNSPECIFIED Status: Acute Qualifiers: Cardiomyopathy type: ischemic Qualified Code(s): I25.5 - Ischemic cardiomyopathy Comment: ef of 35% - Plan Has not much urine output, will likely need to continue HD, await nephr adv -: outpt HD chair per nephro adv -: PT to ambulate as tolerated, will likely need swing bed/rehab -: continue coreg, bidil, asp, plavix, nebs and lipitor -: EP eval in am, had sinus pauses sec to severe acidosis/electro issues? * . Review of Systems - Medications/Allergies Allergies/Adverse Reactions: Allergies Allergy/AdvReac Type Severity Reaction Status Date / Time Penicillins Allergy Verified 09/09/18 15:25 Medications: Current Medications Acetaminophen (Tylenol) 650 mg PO Q4H PRN PRN Reason: Headache/Fever/Mild Pain (1-3) Albuterol/Ipratropium (Duoneb) 3 ml NEB Q6H PRN PRN Reason: SOB/WHEEZING Aspirin (Aspirin Chewable) 81 mg PO DAILY [facility] Last Admin: 09/12/18 09:26 Dose: 81 mg Atorvastatin Calcium (Lipitor) 20 mg PO HS [facility] Last Admin: 09/11/18 21:21 Dose: 20 mg Bisacodyl (Dulcolax) 10 mg [place] DAILYPRN PRN PRN Reason: Constipation Carvedilol (Coreg) 3.125 mg PO BID-[facility] Last Admin: 09/12/18 09:25 Dose: 3.125 mg Cholecalciferol (Vitamin D3) 2,000 units PO BID [facility] Last Admin: 09/12/18 09:25 Dose: 2,000 units Clopidogrel Bisulfate (Plavix) 75 mg PO DAILY [facility] Last Admin: 09/12/18 09:24 Dose: 75 mg Dextrose/Water (Dextrose 50%) 25 gm SLOW IVP PRN PRN PRN Reason: Hypoglycemia Epoetin Doyle-epbx (Retacrit) 10,000 unit SC Q7D [facility] Last Admin: 09/10/18 14:47 Dose: 10,000 unit Glucagon (Glucagon) 1 mg IM PRN PRN PRN Reason: Hypoglycemia Guaifenesin/Dextromethorphan (Robitussin Dm) 15 ml PO Q4H PRN PRN Reason: Cough Heparin Sodium (Porcine) (Heparin) 5,000 units SC BID [facility] Last Admin: 09/12/18 09:27 Dose: 5,000 units Hydralazine HCl (Apresoline) 10 mg SLOW IVP Q4H PRN PRN Reason: SBP Greater Than 170 Hydralazine HCl (Apresoline) 25 mg PO TID [facility] Last Admin: 09/12/18 09:23 Dose: 25 mg Dextrose/Water (D5w) 1,000 mls @ 0 mls/hr IV .Q0M PRN PRN Reason: Hypoglycemia Insulin Human Lispro (Humalog) 0 units SC .MODERATE SLIDING SC PRN PRN Reason: Moderate Correctional Scale Insulin Human Lispro (Humalog) 0 units SC .BEDTIME SLIDING SC PRN PRN Reason: Bedtime Correctional Scale Last Admin: 09/11/18 21:19 Dose: 2 units Isosorbide Dinitrate (Isordil) 10 mg PO TID [facility] Last Admin: 09/12/18 09:24 Dose: 10 mg Metoclopramide HCl (Reglan) 10 mg IVP Q6H PRN PRN Reason: Nausea/Vomiting Last Admin: 09/10/18 11:23 Dose: 10 mg Ondansetron HCl (Zofran) 4 mg IVP Q6H PRN PRN Reason: Nausea/Vomiting Last Admin: 09/10/18 12:43 Dose: 4 mg Pantoprazole Sodium (Protonix) 40 mg PO DAILY [facility] Last Admin: 09/12/18 09:26 Dose: 40 mg Senna/Docusate Sodium (Senokot S) 2 tab PO BID PRN PRN Reason: Constipation Sodium Chloride (Flush - Normal Saline) 10 ml IVF Q12HR [facility] Last Admin: 09/12/18 09:26 Dose: 10 ml Sodium Chloride (Flush - Normal Saline) 10 ml IVF PRN PRN PRN Reason: Saline Flush Throat Lozenges (Cepastat Lozenges) 1 neftaly PO PRN PRN PRN Reason: Sore Throat Last Admin: 09/11/18 03:48 Dose: 1 neftaly
--- NOTE | 2018-09-12 14:13 | PRG ---
DATE OF SERVICE: 09/12/2018 SUBJECTIVE: Patient was seen and examined at bedside and overnight events noted. Patient denies any shortness of breath or chest pain or palpitation. No history of nausea or vomiting or diarrhea or fever or chills or cramps. OBJECTIVE: GENERAL: This is a well-built female, in no apparent distress. VITAL SIGNS: Temperature . Pulse 78. Respiratory rate 18. Blood pressure 127/67. HEENT: Atraumatic, normocephalic. Oral mucosa is moist NECK: Supple. CARDIOVASCULAR: S1, S2 heard. Rate and rhythm regular. RESPIRATORY: Clear to auscultation. GASTROINTESTINAL: Abdomen is soft. MUSCULOSKELETAL: No tenderness. No edema. DERMATOLOGIC: No skin rash. NEUROLOGIC: Alert and awake and oriented X3. No focal neurologic deficits. Moving all the extremities. PSYCHIATRIC: Mood and affect normal. LABORATORY DATA: Potassium is 3.4, BUN is 67, and creatinine is 3.7. ASSESSMENT AND PLAN: 1. Acute kidney injury on chronic kidney disease, stage 3. No acute indication for dialysis today. 2. [place] encephalopathy, better. 3. Severe hyperkalemia, better. 4. Anemia. Labs are better. We will follow. No dialysis today. Job ID: [id number]
[2018-09-12] MEDS: HumaLOG 300 UNITS/3 ML VIAL SC PRN (17:22)
[2018-09-12] MEDS: Acetaminophen 325 MG TAB PO PRN (18:31)
[2018-09-12] MEDS: Atorvastatin Calcium 20 MG TAB PO SCH (20:20)
[2018-09-13 06:50] LABS: Albumin 2.8 g/dL (3.5-5.0); Anion Gap 12 mmol/L (10-20); BUN (Urea Nitrogen) 70 mg/dL (9.8-20.1); Calc. Creatinine Clearance 17 mL/min (70-130); Calcium 8.8 mg/dL (7.8-10.44); Carbon Dioxide 24 mmol/L (22-29); Chloride 105 mmol/L (98-107); Estimated GFR-MDRD 14; Glucose 126 mg/dL (70-105); Phosphorus 3.6 mg/dL (2.3-4.7); Potassium 3.1 mmol/L (3.5-5.1); Sodium 138 mmol/L (136-145)
[2018-09-13] MEDS: Acetaminophen 325 MG TAB PO PRN (06:56)
[2018-09-13] MEDS: Carvedilol 3.125 MG TAB PO SCH ×2 (09:35→18:04)
[2018-09-13] MEDS: Clopidogrel Bisulfate 75 MG TAB PO SCH (09:35)
[2018-09-13] MEDS: hydrALAZINE 25 MG TAB PO SCH ×3 (09:35→20:40)
[2018-09-13] MEDS: Aspirin Chewable 81 MG TAB PO SCH (09:35)
[2018-09-13] MEDS: Isosorbide Dinitrate 20 MG TAB PO SCH ×3 (09:35→20:34)
[2018-09-13] MEDS: Heparin 5,000 UNITS/ML VIAL SC SCH ×2 (09:36→20:33)
--- NOTE | 2018-09-13 11:34 | PRG ---
DATE OF SERVICE: 09/11/2018 SUBJECTIVE: Patient was seen and examined at bedside and overnight events noted. Patient denies any shortness of breath or chest pain or palpitation. No history of nausea or vomiting or diarrhea or fever or chills or cramps. OBJECTIVE: GENERAL: This is a well-built female, in no apparent distress. VITAL SIGNS: Temperature 97.3. Heart rate . Respiratory rate . Blood pressure 163/64. HEENT: Atraumatic, normocephalic. Oral mucosa is moist NECK: Supple. CARDIOVASCULAR: S1, S2 heard. Rate and rhythm regular. RESPIRATORY: Clear to auscultation. GASTROINTESTINAL: Abdomen is soft. MUSCULOSKELETAL: No tenderness. No edema. DERMATOLOGIC: No skin rash. NEUROLOGIC: Alert and awake and oriented X3. No focal neurologic deficits. Moving all the extremities. PSYCHIATRIC: Mood and affect normal. LABORATORY DATA: Potassium is 3.7, BUN is 68, creatinine is 3.3. ASSESSMENT AND PLAN: 1. Acute kidney injury on chronic kidney disease stage 4. We will continue on dialysis. Remains dialysis dependent. We will monitor. 2. [place] encephalopathy, better. 3. Severe hyperkalemia. 4. Severe acidosis. 5. Vitamin D deficiency. Labs are better. We will monitor. No dialysis today. Job ID: [id number]
--- NOTE | 2018-09-13 12:22 | PRG ---
DATE OF SERVICE: 09/13/2018 SUBJECTIVE: This is a 58-year-old female, being seen for end-stage renal disease. The patient denied any nausea, vomiting, or chest pain. OBJECTIVE: CONSTITUTIONAL: The patient is awake, alert. VITAL SIGNS: Pulse 75, breathing 16, blood pressure 165/77. GENERAL APPEARANCE AND MENTAL STATUS: Fair. HEAD/NECK: Normocephalic. Atraumatic. EYES: EOMI. No deformity. EARS: Clear. No ulcers. NOSE: Intact. No lesions. MOUTH: Clear. No discharge. THROAT: Clear. No exudate. LUNGS: Clear. No crackles. CARDIAC: S1, S2. No rub. ABDOMEN: Benign. Bowel sounds positive. GENITALIA/RECTUM: [place] absent. BACK/EXTREMITIES: Edema 0+. NEUROLOGICAL: Alert and motor intact. SKIN: LYMPHATICS: LABORATORY DATA: Reviewed. ASSESSMENT AND PLAN: 1. Stage 6 chronic kidney disease. Plan dialysis. 2. Hypertension, stable. 3. Anemia, stable. 4. Hypokalemia, use of 4K bath. Job ID: [id number]
--- NOTE | 2018-09-13 13:19 | PDOC.PN ---
- Subjective Encounter Start Date: 09/13/18 Encounter Start Time: 11:00 Subjective: no sob or palp or chest pain -: has ambulated nearly 200ft or more with PT yesterday - Objective Resuscitation Status - Order Detail: 09/09/18 14:08 Resuscitation Status Routine Resuscitation Status: FULL: Full Resuscitation MAR Reviewed: Yes Vital Signs & Weight: Vital Signs (12 hours) Temp Pulse Pulse Pulse BP BP BP 09/13/18 12:15 74 80 166/81 H 165/87 H 09/13/18 11:07 98.4 F 09/13/18 09:35 83 165/77 H 09/13/18 08:00 09/13/18 07:08 97.8 F 09/13/18 03:25 98.2 F Pulse Ox Pulse Ox Pulse Ox 09/13/18 12:15 95 94 L 09/13/18 11:07 09/13/18 09:35 09/13/18 08:00 95 09/13/18 07:08 09/13/18 03:25 Weight Admit Weight 166 lb 14.239 oz Weight 153 lb 11.2 oz Most Recent Monitor Data Heart Rate from ECG 80 NIBP 157/88 NIBP BP-Mean 111 Respiration from ECG 23 SpO2 97 I&O: 09/12/18 09/13/18 09/14/18 06:59 06:59 06:59 Intake Total 650 250 Balance 650 250 Result Diagrams: 09/10/18 04:12 09/13/18 05:30 Additional Labs: Accuchecks 09/13/18 09/13/18 09/12/18 10:45 05:30 20:32 POC Glucose 170 H 133 H 145 H 09/12/18 16:46 POC Glucose 225 H Phys Exam - Physical Examination HEENT: PERRLA, moist MMs Neck: no JVD, supple Respiratory: no wheezing, no rales Cardiovascular: RRR, no significant murmur Gastrointestinal: soft, non-tender, positive bowel sounds Musculoskeletal: no edema, pulses present Neurological: non-focal, moves all 4 limbs Psychiatric: normal affect, A&O x 3 Dx/Plan (1) Acute renal failure Status: Acute Qualifiers: Acute renal failure type: unspecified Qualified Code(s): N17.9 - Acute kidney failure, unspecified (2) Metabolic acidosis Code(s): E87.2 - ACIDOSIS Status: Resolved (3) CAD (coronary artery disease) Code(s): I25.10 - ATHSCL HEART DISEASE OF [place] CORONARY ARTERY W/O ANG PCTRS Status: Chronic Qualifiers: Coronary Disease-Associated Artery/Lesion type: [place] artery [place] vs. transplanted heart: [place] heart Associated angina: without angina Qualified Code(s): I25.10 - Atherosclerotic heart disease of [place] coronary artery without angina pectoris (4) HTN (hypertension) Code(s): I10 - ESSENTIAL (PRIMARY) HYPERTENSION Status: Chronic Qualifiers: Hypertension type: essential hypertension Qualified Code(s): I10 - Essential (primary) hypertension (5) Dyslipidemia Code(s): E78.5 - HYPERLIPIDEMIA, UNSPECIFIED Status: Chronic (6) Hyperkalemia Code(s): E87.5 - HYPERKALEMIA Status: Resolved (7) H/O: CVA (cerebrovascular accident) Code(s): Z86.73 - PRSNL HX OF TIA (TIA), AND CEREB INFRC W/O RESID DEFICITS Status: Chronic (8) Cardiomyopathy Code(s): I42.9 - CARDIOMYOPATHY, UNSPECIFIED Status: Acute Qualifiers: Cardiomyopathy type: ischemic Qualified Code(s): I25.5 - Ischemic cardiomyopathy Comment: ef of 35% - Plan she is npo for cardiac procedure, ?ep eval or cath -: her renal function is progressively climbing up, d/w , plan is for H -: -D today, will need outpt chair -: continue coreg, bidil, nebs, lipitor, asp, plavix -: hemostable * . Review of Systems - Medications/Allergies Allergies/Adverse Reactions: Allergies Allergy/AdvReac Type Severity Reaction Status Date / Time Penicillins Allergy Verified 09/09/18 15:25 Medications: Current Medications Acetaminophen (Tylenol) 650 mg PO Q4H PRN PRN Reason: Headache/Fever/Mild Pain (1-3) Last Admin: 09/13/18 06:56 Dose: 650 mg Albuterol/Ipratropium (Duoneb) 3 ml NEB Q6H PRN PRN Reason: SOB/WHEEZING Aspirin (Aspirin Chewable) 81 mg PO DAILY [facility] Last Admin: 09/13/18 09:35 Dose: 81 mg Atorvastatin Calcium (Lipitor) 20 mg PO HS [facility] Last Admin: 09/12/18 20:20 Dose: 20 mg Bisacodyl (Dulcolax) [address] DAILYPRN PRN PRN Reason: Constipation Carvedilol (Coreg) 3.125 mg PO BID-[facility] Last Admin: 09/13/18 09:35 Dose: 3.125 mg Cholecalciferol (Vitamin D3) 2,000 units PO BID [facility] Last Admin: 09/13/18 09:35 Dose: 2,000 units Clopidogrel Bisulfate (Plavix) 75 mg PO DAILY [facility] Last Admin: 09/13/18 09:35 Dose: 75 mg Dextrose/Water (Dextrose 50%) 25 gm SLOW IVP PRN PRN PRN Reason: Hypoglycemia Epoetin Doyle-epbx (Retacrit) 10,000 unit SC Q7D [facility] Last Admin: 09/10/18 14:47 Dose: 10,000 unit Glucagon (Glucagon) 1 mg IM PRN PRN PRN Reason: Hypoglycemia Guaifenesin/Dextromethorphan (Robitussin Dm) 15 ml PO Q4H PRN PRN Reason: Cough Heparin Sodium (Porcine) (Heparin) 5,000 units SC BID [facility] Last Admin: 09/13/18 09:36 Dose: 5,000 units Hydralazine HCl (Apresoline) 10 mg SLOW IVP Q4H PRN PRN Reason: SBP Greater Than 170 Hydralazine HCl (Apresoline) 25 mg PO TID [facility] Last Admin: 09/13/18 09:35 Dose: 25 mg Dextrose/Water (D5w) 1,000 mls @ 0 mls/hr IV .Q0M PRN PRN Reason: Hypoglycemia Insulin Human Lispro (Humalog) 0 units SC .MODERATE SLIDING SC PRN PRN Reason: Moderate Correctional Scale Last Admin: 09/12/18 17:22 Dose: 4 unit Insulin Human Lispro (Humalog) 0 units SC .BEDTIME SLIDING SC PRN PRN Reason: Bedtime Correctional Scale Last Admin: 09/11/18 21:19 Dose: 2 units Isosorbide Dinitrate (Isordil) 10 mg PO TID [facility] Last Admin: 09/13/18 09:35 Dose: 10 mg Metoclopramide HCl (Reglan) 10 mg IVP Q6H PRN PRN Reason: Nausea/Vomiting Last Admin: 09/10/18 11:23 Dose: 10 mg Ondansetron HCl (Zofran) 4 mg IVP Q6H PRN PRN Reason: Nausea/Vomiting Last Admin: 09/10/18 12:43 Dose: 4 mg Pantoprazole Sodium (Protonix) 40 mg PO DAILY [facility] Last Admin: 09/13/18 09:35 Dose: 40 mg Senna/Docusate Sodium (Senokot S) 2 tab PO BID PRN PRN Reason: Constipation Sodium Chloride (Flush - Normal Saline) 10 ml IVF Q12HR [facility] Last Admin: 09/13/18 09:36 Dose: 10 ml Sodium Chloride (Flush - Normal Saline) 10 ml IVF PRN PRN PRN Reason: Saline Flush Throat Lozenges (Cepastat Lozenges) 1 neftaly PO PRN PRN PRN Reason: Sore Throat Last Admin: 09/11/18 03:48 Dose: 1 neftaly
--- NOTE | 2018-09-13 15:21 | EKG ---
Test Reason : ROUTINE Blood Pressure : / mmHG Vent. Rate : 090 BPM Atrial Rate : 090 BPM P-R Int : 176 ms QRS Dur : 130 ms QT Int : 396 ms P-R-T Axes : 041 -24 134 degrees QTc Int : 484 ms Normal sinus rhythm Premature ventricular complexes Non-specific intra-ventricular conduction delay Voltage criteria for left ventricular hypertrophy Abnormal ECG Confirmed by MARSHA PHAN ([id number]) on 09/13/2018 3:21:18 PM Referred By: AIRAM Confirmed By:MARSHA PHAN
[2018-09-13] MEDS: Metoclopramide HCl 10 MG/2 ML VIAL IVP PRN (20:37)
[2018-09-13] MEDS: Atorvastatin Calcium 20 MG TAB PO SCH (20:40)
--- NOTE | 2018-09-14 01:11 | CON ---
DATE OF CONSULTATION: 09/13/2018 HISTORY OF PRESENT ILLNESS: I am seeing Ms. Pereira at our [facility] step-down ICU as an electrophysiology consult and her problems are: 1. Tachy-chidi syndrome. a. Episodes of narrow complex tachycardia, possibly atrioventricular soraya reentry tachycardia on presentation intermittently. b. Episodic pauses less than 3 seconds noted. 2. Acute systolic congestive heart failure with likely ischemic cardiomyopathy. a. History of stent placement four months [address] [facility] in [place]. b. Reduced LVEF by echo on 09/10/2018 at 30% to 35%, [id number] enlargement of left atrium, severely elevated pulmonary artery pressures, moderate MR. 3. End-stage renal disease, on hemodialysis. 4. Type 2 diabetes. 5. Hypertension and dyslipidemia. 6. History of asthma. ALLERGIES: PENICILLIN. MEDICATIONS: Include: 1. Potassium. 2. Indapamide. 3. Tradjenta. 4. Atorvastatin. 5. Lasix. 6. Carvedilol. 7. Metoprolol succinate. 8. Aspirin. 9. Procardia. SUBJECTIVE: Ms. Pereira presented with some mental status changes with findings of fluid overload and severe metabolic acidosis are noted. She is a poor historian but she denies chest pains, palpitations, or loss of consciousness recently. She has no stroke-like symptoms. No neurological deficits. No fever, chills, or cough. No PND or orthopnea at this time. She denies symptoms of palpitations. The rest of 12-point system otherwise unremarkable. PAST MEDICAL HISTORY: As above. SOCIAL HISTORY: The patient denies smoking, EtOH, or drug abuse. FAMILY HISTORY: Noncontributory, but have a history of cancer. She lives with her sister. OBJECTIVE DATA: VITAL SIGNS: Blood pressure is 119/62, heart rate 82, respirations 18, and temperature 97.8 degrees Fahrenheit. GENERAL: Alert and oriented woman, in no apparent distress. NECK: Supple. Jugular veins not distended. CHEST: Coarse without crackles. HEART: Sounds are regular to rate and rhythm. No murmur or gallop. ABDOMEN: Benign. Bowel sounds positive. EXTREMITIES: Lower extremities without edema, clubbing, or cyanosis. Pulses are adequate. NEUROLOGIC: The patient is nonfocal. MUSCULOSKELETAL: Without joint swelling or deformity. SKIN: Without rash. DATABASE: The telemetry strips reviewed and revealed an episode of somewhat widened complex arrhythmia, but not unlike the baseline rhythm with occasional PVCs are noted. Otherwise, sinus rhythm is seen. LABORATORY DATA: White cell count on admission 9.5, hemoglobin 8.3, platelet count is 203. Sodium 138, potassium 3.1, BUN is 70, creatinine is 4.07. Blood gas on presentation was pH of 7.2, pCO2 of 26, PO2 of 68.9. EKG reveals left axis with some intraventricular conduction delay and possible LVH. ASSESSMENT AND PLAN: Ms. Pereira is a 58-year-old woman with history of end-stage renal disease, also coronary artery disease with prior stenting noted. She likely has ischemic cardiomyopathy, although prior records are not available, but now her LVEF is in the 30% to 35% range per echocardiogram despite the stent placement four months ago. She also has episodic self-terminating narrow complex supraventricular tachycardia, likely AVNRT and episodic mild bradyarrhythmia with up to 2.8 second pauses documented on her telemetry strips. Her tachy-chidi syndrome is concerning, possibly contributing to her presentation with intermittent recurrent episodes. EP study to evaluate the actual nature of arrhythmia and possible ablation could be made. Also, she could be evaluated for inducible arrhythmias. Possible repeat echocardiogram could be considered to assess her candidacy for prophylactic ICD implant. On the other hand, in view of her end-stage renal disease, potential benefit from primary prophylactic ICD implant could be reduced due to her higher infection risk long-term. I attempted to discuss with her at this point. She has worsening of her medical condition and treatment options. We will discuss further as possible with her sister, who seems to be involved in her care and I tried to call her, but could not reach her. We will follow up with you for now with standard heart failure therapy and coronary artery disease care as per Dr. Barton to be ensued. Job ID: [id number]
[2018-09-14 05:59] LABS: Albumin 3.2 g/dL (3.5-5.0); Anion Gap 13 mmol/L (10-20); BUN (Urea Nitrogen) 24 mg/dL (9.8-20.1); BUN/Creatinine Ratio 10.39; Calc. Creatinine Clearance 30 mL/min (70-130); Calcium 8.9 mg/dL (7.8-10.44); Carbon Dioxide 26 mmol/L (22-29); Chloride 101 mmol/L (98-107); Estimated GFR-MDRD 26; Glucose 98 mg/dL (70-105); Phosphorus 2.3 mg/dL (2.3-4.7); Potassium 3.6 mmol/L (3.5-5.1); Sodium 136 mmol/L (136-145)
[2018-09-14] MEDS: Clopidogrel Bisulfate 75 MG TAB PO SCH (08:57)
[2018-09-14] MEDS: Carvedilol 3.125 MG TAB PO SCH ×2 (08:57→16:20)
[2018-09-14] MEDS: Aspirin Chewable 81 MG TAB PO SCH (08:57)
[2018-09-14] MEDS: Heparin 5,000 UNITS/ML VIAL SC SCH ×2 (08:58→20:25)
[2018-09-14] MEDS: hydrALAZINE 25 MG TAB PO SCH ×3 (08:58→20:24)
[2018-09-14] MEDS: Isosorbide Dinitrate 20 MG TAB PO SCH ×3 (09:03→20:26)
--- NOTE | 2018-09-14 11:31 | PDOC.PN ---
- Subjective Encounter Start Date: 09/14/18 Encounter Start Time: 09:00 Subjective: sitting in chair, no sob or palp -: feels good -: sister at bedside - Objective Resuscitation Status - Order Detail: 09/09/18 14:08 Resuscitation Status Routine Resuscitation Status: FULL: Full Resuscitation MAR Reviewed: Yes Vital Signs & Weight: Vital Signs (12 hours) Temp Pulse Resp BP Pulse Ox 09/14/18 08:58 79 09/14/18 08:55 98 09/14/18 07:45 98 F 79 18 140/67 98 09/14/18 04:00 99.4 F 85 18 136/65 100 Weight Admit Weight 166 lb 14.239 oz Weight 153 lb 11.2 oz Most Recent Monitor Data Heart Rate from ECG 67 NIBP 164/80 NIBP BP-Mean 108 Respiration from ECG 18 SpO2 73 I&O: 09/13/18 09/14/18 09/15/18 06:59 06:59 06:59 Intake Total 250 Balance 250 Result Diagrams: 09/10/18 04:12 09/14/18 05:05 Additional Labs: Accuchecks 09/14/18 09/14/18 09/13/18 10:33 05:33 20:36 POC Glucose 148 H 95 151 H Phys Exam - Physical Examination HEENT: PERRLA, moist MMs Neck: no JVD, supple Respiratory: no wheezing, no rales Cardiovascular: RRR, no significant murmur Gastrointestinal: soft, non-tender, positive bowel sounds Musculoskeletal: no edema, pulses present Neurological: non-focal, moves all 4 limbs Psychiatric: A&O x 3 Dx/Plan (1) Acute renal failure Status: Acute Qualifiers: Acute renal failure type: unspecified Qualified Code(s): N17.9 - Acute kidney failure, unspecified (2) Metabolic acidosis Code(s): E87.2 - ACIDOSIS Status: Resolved (3) CAD (coronary artery disease) Code(s): I25.10 - ATHSCL HEART DISEASE OF [place] CORONARY ARTERY W/O ANG PCTRS Status: Chronic Qualifiers: Coronary Disease-Associated Artery/Lesion type: [place] artery [place] vs. transplanted heart: [place] heart Associated angina: without angina Qualified Code(s): I25.10 - Atherosclerotic heart disease of [place] coronary artery without angina pectoris (4) HTN (hypertension) Code(s): I10 - ESSENTIAL (PRIMARY) HYPERTENSION Status: Chronic Qualifiers: Hypertension type: essential hypertension Qualified Code(s): I10 - Essential (primary) hypertension (5) Dyslipidemia Code(s): E78.5 - HYPERLIPIDEMIA, UNSPECIFIED Status: Chronic (6) Hyperkalemia Code(s): E87.5 - HYPERKALEMIA Status: Resolved (7) H/O: CVA (cerebrovascular accident) Code(s): Z86.73 - PRSNL HX OF TIA (TIA), AND CEREB INFRC W/O RESID DEFICITS Status: Chronic (8) Cardiomyopathy Code(s): I42.9 - CARDIOMYOPATHY, UNSPECIFIED Status: Acute Qualifiers: Cardiomyopathy type: ischemic Qualified Code(s): I25.5 - Ischemic cardiomyopathy Comment: ef of 35% - Plan outpt HD chair needs to be set up -: DC plan home if no cardio procedures are planned -: is amb well with PT, HH with nursing and PT at home -: d/w pt and sister at bedside -: continue coreg, bidil, asp, lipitor and plavix * . repeat echo has been ordered, await results. Hemostable. Review of Systems - Medications/Allergies Allergies/Adverse Reactions: Allergies Allergy/AdvReac Type Severity Reaction Status Date / Time Penicillins Allergy Verified 09/09/18 15:25 Medications: Current Medications Acetaminophen (Tylenol) 650 mg PO Q4H PRN PRN Reason: Headache/Fever/Mild Pain (1-3) Last Admin: 09/13/18 06:56 Dose: 650 mg Albuterol/Ipratropium (Duoneb) 3 ml NEB Q6H PRN PRN Reason: SOB/WHEEZING Aspirin (Aspirin Chewable) 81 mg PO DAILY [facility] Last Admin: 09/14/18 08:57 Dose: 81 mg Atorvastatin Calcium (Lipitor) 20 mg PO HS [facility] Last Admin: 09/13/18 20:40 Dose: 20 mg Bisacodyl (Dulcolax) 10 mg [place] DAILYPRN PRN PRN Reason: Constipation Carvedilol (Coreg) 3.125 mg PO BID-[facility] Last Admin: 09/14/18 08:57 Dose: 3.125 mg Cholecalciferol (Vitamin D3) 2,000 units PO BID [facility] Last Admin: 09/14/18 08:57 Dose: 2,000 units Clopidogrel Bisulfate (Plavix) 75 mg PO DAILY [facility] Last Admin: 09/14/18 08:57 Dose: 75 mg Dextrose/Water (Dextrose 50%) 25 gm SLOW IVP PRN PRN PRN Reason: Hypoglycemia Epoetin Doyle-epbx (Retacrit) 10,000 unit SC Q7D [facility] Last Admin: 09/10/18 14:47 Dose: 10,000 unit Glucagon (Glucagon) 1 mg IM PRN PRN PRN Reason: Hypoglycemia Guaifenesin/Dextromethorphan (Robitussin Dm) 15 ml PO Q4H PRN PRN Reason: Cough Heparin Sodium (Porcine) (Heparin) 5,000 units SC BID [facility] Last Admin: 09/14/18 08:58 Dose: 5,000 units Hydralazine HCl (Apresoline) 10 mg SLOW IVP Q4H PRN PRN Reason: SBP Greater Than 170 Hydralazine HCl (Apresoline) 25 mg PO TID [facility] Last Admin: 09/14/18 08:58 Dose: 25 mg Dextrose/Water (D5w) 1,000 mls @ 0 mls/hr IV .Q0M PRN PRN Reason: Hypoglycemia Insulin Human Lispro (Humalog) 0 units SC .MODERATE SLIDING SC PRN PRN Reason: Moderate Correctional Scale Last Admin: 09/12/18 17:22 Dose: 4 unit Insulin Human Lispro (Humalog) 0 units SC .BEDTIME SLIDING SC PRN PRN Reason: Bedtime Correctional Scale Last Admin: 09/11/18 21:19 Dose: 2 units Isosorbide Dinitrate (Isordil) 10 mg PO TID [facility] Last Admin: 09/14/18 09:03 Dose: 10 mg Metoclopramide HCl (Reglan) 10 mg IVP Q6H PRN PRN Reason: Nausea/Vomiting Last Admin: 09/13/18 20:37 Dose: 10 mg Ondansetron HCl (Zofran) 4 mg IVP Q6H PRN PRN Reason: Nausea/Vomiting Last Admin: 09/10/18 12:43 Dose: 4 mg Pantoprazole Sodium (Protonix) 40 mg PO DAILY [facility] Last Admin: 09/14/18 08:58 Dose: 40 mg Senna/Docusate Sodium (Senokot S) 2 tab PO BID PRN PRN Reason: Constipation Sodium Chloride (Flush - Normal Saline) 10 ml IVF Q12HR [facility] Last Admin: 09/14/18 09:01 Dose: 10 ml Sodium Chloride (Flush - Normal Saline) 10 ml IVF PRN PRN PRN Reason: Saline Flush Throat Lozenges (Cepastat Lozenges) 1 neftaly PO PRN PRN PRN Reason: Sore Throat Last Admin: 09/11/18 03:48 Dose: 1 neftaly
[2018-09-14] MEDS: Metoclopramide HCl 10 MG/2 ML VIAL IVP PRN ×2 (11:37→21:18)
--- NOTE | 2018-09-14 13:39 | PRG ---
DATE OF SERVICE: SUBJECTIVE: A 58-year-old female being seen for end-stage renal disease. The patient denied nausea, vomiting, or chest pain. OBJECTIVE: See above. The patient is awake and alert, in no acute distress. VITAL SIGNS: Pulse 79, breathing 16, and blood pressure 140/67. GENERAL APPEARANCE AND MENTAL STATUS: Fair. HEAD/NECK: Normocephalic. Atraumatic. EYES: EOMI. No deformity. EARS: Clear. No ulcers. NOSE: Intact. No lesions. MOUTH: Clear. No discharge. THROAT: Clear. No exudate. LUNGS: Clear. No crackles. CARDIAC: S1, S2. No rub. ABDOMEN: Benign. Bowel sounds positive. GENITALIA/RECTUM: Beebe absent. BACK/EXTREMITIES: Edema 0+. NEUROLOGICAL: Alert and motor intact. LABORATORY DATA: Reviewed. ASSESSMENT AND PLAN: 1. chronic kidney disease. Continue hemodialysis. 2. . Job ID: [id number]
[2018-09-14] MEDS: HumaLOG 300 UNITS/3 ML VIAL SC PRN (17:28)
--- NOTE | 2018-09-14 19:58 | PRG ---
DATE OF SERVICE: SUBJECTIVE: Ms. Pereira is doing well. No current complaints. A repeat echo did suggest an improvement in LVEF to 40% to 45%. She did have moderate LVH present. OBJECTIVE: GENERAL: Patient is a pleasant female who is in no acute distress. The patient appears their stated age. VITAL SIGNS: Blood pressure 117/59, pulse 91, temperature 98.1. NEUROLOGIC: The patient is alert and oriented x3 with no focal neurologic deficits. HEENT: Sclerae without icterus. Mouth has moist mucous membranes with normal pallor. NECK: No JVD. Carotid upstroke brisk. No bruits bilaterally. LUNGS: Clear to auscultation with unlabored respirations. BACK: No scoliosis or kyphosis. CARDIAC: Regular rate and rhythm with normal S1 and S2. No S3 or S4 noted. No significant rubs, murmurs, thrills, or gallops noted throughout the precordium. PMI is not displaced. There is no parasternal heave. ABDOMEN: Soft, nontender, nondistended. No peritoneal signs present. No hepatosplenomegaly. No abnormal striae. EXTREMITIES: 2+ femoral and 2+ dorsalis pedis pulses. No cyanosis, clubbing, or edema. SKIN: No gross abnormalities. PERTINENT LABORATORY DATA: Hemoglobin 8.5. Creatinine 2.3 with a GFR of 26. IMPRESSION: 1. Ischemic cardiomyopathy. 2. Coronary artery disease. 3. Status post stent placement. 4. Supraventricular tachycardia. 5. End-stage renal disease. RECOMMENDATIONS: Ms. Pereira's LVEF has improved. At this point, would not benefit from ICD. We will leave recommendations on SVT to Dr. Hoover, but I do feel she may benefit from a more conservative approach. She is currently on aspirin, atorvastatin, in addition to Plavix. We would also continue isosorbide dinitrate. Otherwise from my standpoint, I have no further recommendations. Plan is to follow up with her primary training officer in [place]. She lives in [place]. Job ID: [id number]
[2018-09-14] MEDS: Atorvastatin Calcium 20 MG TAB PO SCH (20:24)
[2018-09-14] MEDS: Acetaminophen 325 MG TAB PO PRN (20:27)
[2018-09-15 06:39] LABS: Anion Gap 13 mmol/L (10-20); BUN (Urea Nitrogen) 38 mg/dL (9.8-20.1); Calc. Creatinine Clearance 17 mL/min (70-130); Calcium 8.9 mg/dL (7.8-10.44); Carbon Dioxide 25 mmol/L (22-29); Chloride 100 mmol/L (98-107); Estimated GFR-MDRD 15; Glucose 177 mg/dL (70-105); Phosphorus 4.3 mg/dL (2.3-4.7); Potassium 3.7 mmol/L (3.5-5.1); Sodium 134 mmol/L (136-145)
[2018-09-15] MEDS: Carvedilol 3.125 MG TAB PO SCH ×2 (07:54→18:07)
[2018-09-15] MEDS: Aspirin Chewable 81 MG TAB PO SCH (08:00)
[2018-09-15] MEDS: Heparin 5,000 UNITS/ML VIAL SC SCH (08:01)
[2018-09-15] MEDS: Clopidogrel Bisulfate 75 MG TAB PO SCH (08:01)
[2018-09-15] MEDS: hydrALAZINE 25 MG TAB PO SCH ×3 (08:01→21:05)
[2018-09-15] MEDS: Isosorbide Dinitrate 20 MG TAB PO SCH ×3 (08:02→21:05)
--- NOTE | 2018-09-15 10:56 | PRG ---
DATE OF SERVICE: 09/15/2018 SUBJECTIVE: A 58-year-old female being seen for end-stage renal disease. The patient denied nausea, vomiting, or chest pain. OBJECTIVE: CONSTITUTIONAL: The patient is awake, alert. VITAL SIGNS: Pulse 75, breathing 16, blood pressure 132/70. GENERAL APPEARANCE AND MENTAL STATUS: Fair. HEAD/NECK: Normocephalic. Atraumatic. EYES: EOMI. No deformity. EARS: Clear. No ulcers. NOSE: Intact. No lesions. MOUTH: Clear. No discharge. THROAT: Clear. No exudate. LUNGS: Clear. No crackles. CARDIAC: S1, S2. No rub. ABDOMEN: Benign. Bowel sounds positive. GENITALIA/RECTUM: Beebe absent. BACK/EXTREMITIES: Edema 0+. NEUROLOGICAL: Alert and motor intact. SKIN: LYMPHATICS: LABORATORY DATA: Labs reviewed. ASSESSMENT AND PLAN: 1. Stage 6 chronic kidney disease, continue hemodialysis. 2. Hypertension, stable. 3. Anemia, stable. 4. Medication based on GFR appropriate. Job ID: [id number]
[2018-09-15 11:02] LABS: Hemoglobin 8.7 g/dL (12.0-16.0)
[2018-09-15 11:18] LABS: Anion Gap 15 mmol/L (10-20); BUN (Urea Nitrogen) 41 mg/dL (9.8-20.1); Calc. Creatinine Clearance 16 mL/min (70-130); Calcium 9.2 mg/dL (7.8-10.44); Carbon Dioxide 23 mmol/L (22-29); Chloride 99 mmol/L (98-107); Estimated GFR-MDRD 14; Glucose 232 mg/dL (70-105); Potassium 3.8 mmol/L (3.5-5.1); Sodium 133 mmol/L (136-145)
[2018-09-15] MEDS: HumaLOG 300 UNITS/3 ML VIAL SC PRN (11:52)
[2018-09-15 11:54] VITALS: BMI 26.8
--- NOTE | 2018-09-15 15:20 | DIS ---
DATE OF ADMISSION: 09/09/2018 DATE OF DISCHARGE: 09/15/2018 DISCHARGE DISPOSITION: Home. FOLLOWUP: 1. Follow up with primary care physician in 1 week. 2. Follow up with Cardiology, Dr. Barton, and Electrophysiology, Dr. Hoover in 1 to 2 weeks. 3. Outpatient dialysis has been arranged in [place], Thursday, Thursday, and Thursday. The patient was seen and examined on the day of discharge. Denies any new complaints. No chest pain, shortness of breath, or palpitations. DISCHARGE MEDICATIONS: 1. Lipitor 10 mg q.p.m. 2. Aspirin 81 mg daily. 3. Carvedilol 3.125 mg twice a day. 4. Vitamin D3, 2000 units b.i.d. 5. Plavix 75 mg daily. 6. Hydralazine 25 mg three times daily. 7. Isosorbide dinitrate 10 mg three times daily. 8. Lisinopril 5 mg daily. 9. Pepcid 20 mg daily. 10. Folic acid 1 mg daily. INPATIENT CONSULTANTS: 1. Electrophysiology, Dr. Hoover. 2. Cardiology, Dr. Barton. 3. Critical Care, Dr. Rowley. 4. Nephrology, Dr. Rehman. 5. General Surgery, Dr. Boston. INPATIENT PROCEDURES: 1. On 09 September 2018, the patient underwent placement of the right femoral Trialysis catheter for temporary dialysis. 2. Echocardiogram on 10 September 2018, showed ejection fraction of 30% to 35%. with moderate mitral regurgitation with slightly elevated pulmonary artery pressures. 3. Repeat echocardiogram yesterday showed ejection fraction of 40% to 45% with [id number] mitral regurgitation, mild tricuspid regurgitation. 4. CT scan of the brain on admission showed left occipital and posterior parietal old infarct. There were chronic white matter ischemic changes. 5. Chest x-ray on admission showed congestive heart failure. 6. Renal ultrasound was negative for obstructive uropathy. There was small renal cyst. BRIEF HOSPITAL COURSE: The patient is a 58-year-old female with coronary artery disease, status post stent placement 4 months ago at [facility]; diabetes mellitus type 2; hypertension; and dyslipidemia; presented to the hospital with confusion. Her workup was consistent with severe acute kidney injury with creatinine of 5.57, BUN of 157, with bicarbonate of less than 8. BNP was 2100, with potassium of 5.8. She also had elevated troponin of 0.246. Venous blood gases on admission showed pH of 7.036, with pCO2 of 25.6, PO2 of 38.3, with bicarbonate of 6.9. A chest x-ray showed pulmonary vascular congestion. Please refer to the history and physical for further details. The patient was admitted to the hospital with a diagnosis of new onset acute kidney injury with severe metabolic acidosis. She was started on emergent hemodialysis after a Trialysis catheter placement. She was seen by Nephrology, Dr. Rehman. An echocardiogram was done that showed ejection fraction of 30% to 35%. The patient was evaluated by Cardiology, Dr. Barton. She had a repeat echocardiogram yesterday that showed improvement in the ejection fraction. She was also evaluated by Electrophysiology, Dr. Hoover for cardiomyopathy. She was advised to follow up with Cardiology and Electrophysiology as outpatient. Her medications have been optimized by Cardiology. An outpatient dialysis has been arranged. She will be discharged home after dialysis today. She was advised to be compliant with all of her medications. She was counseled on congestive heart failure as well as renal diet. She will benefit from a repeat basic metabolic profile after 1 week. She was advised to follow up with her primary care physician and wire charger next week. Total time coordinating the discharge of this patient was 42 minutes. All questions were answered. She stated understanding. FINAL DIAGNOSES: 1. Acute kidney injury on chronic kidney disease. Baseline creatinine unknown. 2. End-stage renal disease, started on hemodialysis. 3. Coronary artery disease, status post stent placement. 4. Ischemic cardiomyopathy. 5. Supraventricular tachycardia. 6. Significant metabolic acidosis secondary to renal insufficiency. 7. Dyslipidemia. 8. Hyperkalemia on admission. 9. History of CVA. 10. Mild to moderate mitral regurgitation. 11. Type 2 myocardial infarction. 12. Hyponatremia. 13. Moderate protein-calorie malnutrition. 14. Hypokalemia, replaced. 15. Anemia secondary to renal insufficiency. 16. Folic acid deficiency. SIGNIFICANT LABS: TIBC 200, iron 72, percent saturation of 36. Vitamin B12 of 1053, folic acid 5.0. PTH was 393. Vitamin D level was 8.2. ABGs on 09 September, showed pH of 7.21 with bicarbonate of 10.2, pCO2 of 26.4. Job ID: [id number] Addendum: Patient will require ocean transportation intermediary dialysis access. Will hold dc for now [facility]
[2018-09-15] MEDS: Acetaminophen 325 MG TAB PO PRN (15:22)
--- NOTE | 2018-09-15 19:31 | PRG ---
DATE OF SERVICE: 09/15/2018 SUBJECTIVE: Ms. Pereira is doing well. No current complaints. OBJECTIVE: VITAL SIGNS: Blood pressure 157/58, pulse 76, temperature 97.9. LUNGS: Clear to auscultation. HEART: Regular rate and rhythm. ABDOMEN: Soft, nontender, nondistended. EXTREMITIES: No edema. PERTINENT LABORATORY DATA: Hemoglobin 8.7. Creatinine 4.1. IMPRESSION: 1. Ischemic cardiomyopathy. 2. Coronary artery disease. 3. Status post stent placed. 4. End-stage renal disease. RECOMMENDATIONS: 1. Overall LVEF has improved to 40% to 45%. 2. Continue aspirin, atorvastatin, carvedilol, isosorbide, and lisinopril. 3. The patient does not meet criteria for ICD placement given improvement in LVEF. 4. Dysrhythmias have improved after recent dialysis. From a CV standpoint, I have no further recommendations. I recommend she follow up with her primary night time nanny in [place]. She agrees. Job ID: [id number]
[2018-09-15] MEDS: Atorvastatin Calcium 20 MG TAB PO SCH (21:05)
[2018-09-15] MEDS: Metoclopramide HCl 10 MG/2 ML VIAL IVP PRN (21:48)
[2018-09-15] MEDS ORDERED: Clindamycin/D5W 900 MG in Premix Bag 1 BAG IVPB SCH (22:00)
[2018-09-16] MEDS: Carvedilol 3.125 MG TAB PO SCH (05:01)
[2018-09-16 05:59] LABS: Albumin 3.3 g/dL (3.5-5.0); Anion Gap 13 mmol/L (10-20); BUN (Urea Nitrogen) 23 mg/dL (9.8-20.1); Calc. Creatinine Clearance 23 mL/min (70-130); Calcium 9.2 mg/dL (7.8-10.44); Carbon Dioxide 27 mmol/L (22-29); Chloride 100 mmol/L (98-107); Estimated GFR-MDRD 21; Glucose 128 mg/dL (70-105); Phosphorus 2.6 mg/dL (2.3-4.7); Sodium 136 mmol/L (136-145)
[2018-09-16] MEDS: Acetaminophen 325 MG TAB PO PRN (08:21)
[2018-09-16] MEDS: Isosorbide Dinitrate 20 MG TAB PO SCH ×2 (08:22→15:53)
[2018-09-16] MEDS: Aspirin Chewable 81 MG TAB PO SCH (08:23)
[2018-09-16] MEDS: Clopidogrel Bisulfate 75 MG TAB PO SCH (08:23)
[2018-09-16] MEDS: hydrALAZINE 25 MG TAB PO SCH ×2 (08:23→15:53)
[2018-09-16] MEDS ORDERED: Lisinopril 5 MG TAB PO SCH (09:00)
--- NOTE | 2018-09-16 09:01 | PRG ---
DATE OF SERVICE: 09/15/2018 I am seeing Ms. Pereira at our [facility] telemetry floor as a followup. SUBJECTIVE: She seems to be doing fair. Continuing with hemodialysis. No new symptoms noted. OBJECTIVE: VITAL SIGNS: Blood pressure is 121/69, heart rate 80, respirations 16, and temperature 97.4 degrees Fahrenheit. PHYSICAL EXAMINATION: GENERAL: Alert and oriented woman, in no apparent distress. NECK: Supple. Jugular veins not distended. CHEST: Coarse. No crackles. HEART: Heart sounds, regular rate and rhythm. No murmur or gallop. ABDOMEN: Benign. Bowel sounds positive. EXTREMITIES: Lower extremities without edema, clubbing, or cyanosis. DATABASE: Telemetry strips reveal no further arrhythmias. Also followup echocardiogram shows improvement in LVEF at 40% to 45%. ASSESSMENT AND PLAN: Ms. Pereira is a pleasant 58-year-old woman with history of chronic congestive heart failure and ischemic cardiomyopathy, moderately reduced LVEF, although some improvement since the acute followup echocardiogram at 40% to 45%. She did have a narrow complex supraventricular tachycardia, possibly nonsustained atrioventricular soraya reentry tachycardia during her hospital stay, but has not recurred in the last couple of days, on continued beta-chioma therapy. At this point, her LVEF seems to have improved out of the usual range, where we consider prophylactic ICD implant. In view of her end-stage renal disease, this is somewhat difficult proposition anyway. Pacing also was considered, has some degree of tachy-chidi syndrome, although she is mostly asymptomatic. At this point, there is no strict need for pacing just yet unless symptoms worsen. For now, I would try to steer away from device implant in this lady who was prone to future bacteremias hence her status. Should the SVT recur, she could be a candidate for EP study and ablation, which we discussed, but again she has some conceptual issues, understanding it if further symptomatic recurrence, we will contemplate that as well. At this point, I would sign out. She is being discharged for rehab. Happy to see her back in the office if it felt necessary. Job ID: [id number]
[2018-09-16] MEDS ORDERED: Fentanyl 100 MCG/2 ML VIAL ONE (10:13)
--- NOTE | 2018-09-16 10:22 | CON ---
DATE OF CONSULTATION: REASON FOR CONSULT: Need for dialysis access. HISTORY OF PRESENT ILLNESS: Ms. Pereira is a 58-year-old woman, who presented to the hospital with mental status changes and confusion. She had some shortness of breath as well. She was diagnosed with acute renal failure and started on emergent hemodialysis via femoral catheter due to severe acidosis and fluid overload. She has a recent medical history of a heart catheterization 4 months ago at [facility] in [place] and denies any history of kidney problems prior to this hospitalization. She has gotten much better on dialysis and is back to her baseline mentally according to herself and her sister. She is breathing easier and is already set up for outpatient dialysis, but needs a tunneled dialysis catheter to leave the hospital with. PAST MEDICAL HISTORY: Coronary artery disease with stent placement, diabetes, hypertension, hyperlipidemia, and asthma. PAST SURGICAL HISTORY: Eye surgery and recent heart stent. MEDICATIONS: Outpatient medications include; 1. Potassium. 2. Indapamide. 3. Tradjenta. 4. Atorvastatin. 5. Lasix. 6. Carvedilol. 7. Metoprolol. 8. Aspirin. 9. Procardia. Inpatient medications include; 1. Aspirin. 2. Plavix. 3. Lipitor. 4. Coreg. 5. Vitamin D3. 6. Epogen. 7. Hydralazine. 8. Sliding-scale insulin. 9. Isosorbide dinitrate. 10. Levofloxacin. 11. Lisinopril. ALLERGIES: SHE HAS AN ALLERGY TO PENICILLIN. FAMILY HISTORY: Noncontributory. No other history of renal failure. Mother did have renal cancer. PERSONAL HISTORY: No history of tobacco, alcohol, or drug use. REVIEW OF SYSTEMS: Ten system review of systems is currently negative. Her confusion and shortness of breath have resolved. PHYSICAL EXAMINATION: VITAL SIGNS: The patient has been afebrile throughout her hospital stay; heart rate 75; respirations 18; 100% saturated on 2 L nasal cannula, she was 97% on room air yesterday morning; and blood pressure 134/61. GENERAL: Reveals a healthy-appearing woman, in no acute distress. She is not flushed or toxic. She is not jaundiced or icteric. She is breathing easily and appears comfortable and conversant. HEENT: Unremarkable. NECK: Supple without lymphadenopathy or thyroid nodules. HEART: Regular in its rate and rhythm without murmurs, rubs, or gallops. LUNGS: Clear to auscultation bilaterally. ABDOMEN: Soft and nontender and nondistended. No palpable masses or hernias. EXTREMITIES: Warm and well perfused without edema. She has palpable forearm cephalic and antecubital veins bilaterally. No significant edema. NEURO: No focal deficits. PSYCHIATRIC: Alert oriented and appropriate. LABORATORY DATA: White count is normal, hematocrit 27.9, and platelets 209. BUN and creatinine are 23 and 2.77, potassium 4, and bicarb 27. ASSESSMENT AND PLAN: Acute renal failure with need for ongoing dialysis access. The patient and her sister are hopeful that her kidney failure will resolve since she does not have any known history of kidney disease in the past. If she requires ongoing dialysis access, then a fistula would be recommended. I told her she can have this done here or in [place] since her position description manager is in [place] and that is where she has received much of her recent medical care. The procedure of tunneled hemodialysis catheter was discussed in detail with both the patient and her sister. Inherent risks of the surgery were also discussed. These include, but are not limited to, bleeding, infection, risks of anesthesia, hemothorax, pneumothorax, need for other procedures, and DVT. They understand and accept these risks and wished to proceed and they both gives consent for this. All of their questions were answered and antibiotics have been ordered on-call to OR. Job ID: [id number]
[2018-09-16] MEDS ORDERED: Lidocaine 2% PF 5 ML VIAL ONE (11:33)
[2018-09-16] MEDS ORDERED: Bupivacaine/Epinephrine 0.25% 30 ML VIAL ONE (11:33)
[2018-09-16] MEDS ORDERED: Heparin 10,000 UNITS/1 ML VIAL ONE (11:33)
[2018-09-16] MEDS ORDERED: Sodium Chloride 0.9% 10 ML ONE (11:33)
--- NOTE | 2018-09-16 12:07 | RAD ---
PORTABLE CHEST: HISTORY: Status post catheter placement. COMPARISON: 09/09/2018 exam. FINDINGS: Heart size is enlarged. Some mild vascular engorgement is seen and some bibasilar parenchymal change s which could be on the basis of atelectasis. I cannot definitely exclude some minimal infiltrate in the right base. Right-sided HemoSplit-type catheter has been placed. The catheter tip overlies the superior vena cava. I do not see any signs of pneumothorax. IMPRESSION: 1. Placement of a right-sided HemoSplit catheter. No signs of pneumothorax. 2. Slightly increased markings in the right base. Cannot definitely exclude some minimal infiltrate in this region. The vascular engorgement noted on the prior examination has improved. POS: [facility]
[2018-09-16 12:08] VITALS: TEMP 97.5
--- NOTE | 2018-09-16 15:01 | PDOC.OP ---
Operative Note - Operative Note Operative Note: DATE OF PROCEDURE: 09/16/2018 PROCEDURE: Placement of right internal jugular tunneled hemodialysis catheter with ultrasound and fluoroscopic guidance. PREOPERATIVE DIAGNOSIS: Renal failure. POSTOPERATIVE DIAGNOSIS: Renal failure. HISTORY: Patient to presented with mental status changes and acute renal failure. She has improved on emergency dialysis via a femoral dialysis catheter placement. A tunneled hemodialysis catheter for ongoing dialysis has been requested by the patients ordering box operator. PROCEDURE: After informed consent was obtained and appropriate preoperative antibiotics were administered, the patient was taken to the Operating Room, placed in the supine position and monitored anesthesia care was administered. The neck and chest were prepped and draped in a standard sterile fashion and the patient placed in Trendelenburg position. A sterile ultrasound probe was used to identify the patent compressible right IJ vein which was accessed under direct ultrasound guidance. A wire was threaded through the needle and confirmed by ultrasound to be within the patent compressible vessel with the tip in the vena cava by fluoroscopy. Local anesthesia was infused to the skin and subcutaneous tissues of the right neck and chest. An infraclavicular incision was made and a catheter tunneled from the infraclavicular to the right IJ access site. The right IJ was sequentially dilated over the wire following which a dilator and sheath were placed over the wire and the dilator and wire removed leaving the sheath in place. The catheter was tunneled through the sheath which was then split and removed leaving the catheter in place. This was confirmed by fluoroscopy to be in good position in the superior vena cava with no kinking of the course of the catheter. Both ports easily aspirated dark venous nonpulsatile blood and easily flushed without resistance. Heparin was instilled to the quantity specified on the hub, and the hub was secured to the skin with 3-0 nylon sutures. The skin incision at the neck was closed in two layers with 4-0 Monocryl suture and Dermabond dressings were placed. The skin at the exit site was snugged up around the catheter with 4-0 Monocryl suture and Dermabond was placed there as well. Once the Dermabond was dry, a Biopatch and Tegaderm dressing was placed at the exit site. The patient was taken to Recovery in good condition. Estimated blood loss was minimal. There were no complications. There were no specimens.
[2018-09-16 15:57] VITALS: BP 125/67
--- NOTE | 2018-09-17 08:15 | DIS ---
DATE OF ADMISSION: 09/09/2018 DATE OF DISCHARGE: 09/16/2018 DISCHARGE DISPOSITION: Home. FOLLOWUP: Follow up with primary food scientist in [place]. Outpatient dialysis has been arranged Thursday, Thursday, and Thursday. HOSPITAL COURSE: On the day of discharge, the patient underwent a placement of the right internal jugular tunneled dialysis catheter. The Trialysis catheter in the groin was removed. Vital signs on the day of discharge showed temperature 97.5, pulse 68, respirations of 18, O2 saturation 96% on room air, blood pressure 125/67. The patient could not be discharged on September 15, 2018 since there was no tunneled catheter placed. For this reason, the discharge was held. She underwent tunneled dialysis catheter today. She has been cleared by Dr. Caceres for discharge. Please refer to my discharge summary dated September 15, 2018, for details on the hospitalization. The final diagnosis per discharge summary. Job ID: [id number]
--- NOTE | 2018-09-17 10:37 | PRG ---
DATE OF SERVICE: 09/16/2018 SUBJECTIVE: A 58-year-old female being seen for end-stage kidney disease. The patient denied nausea, vomiting, or chest pain. OBJECTIVE: VITAL SIGNS: The patient was afebrile. Pulse 68, breathing 16, and blood pressure 125/67. See above. Awake, alert, in no acute distress. GENERAL APPEARANCE AND MENTAL STATUS: Fair. HEAD/NECK: Normocephalic. Atraumatic. EYES: EOMI. No deformity. EARS: Clear. No ulcers. NOSE: Intact. No lesions. MOUTH: Clear. No discharge. THROAT: Clear. No exudate. LUNGS: Clear. No crackles. CARDIAC: S1, S2. No rub. ABDOMEN: Benign. Bowel sounds positive. GENITALIA/RECTUM: Beebe absent. BACK/EXTREMITIES: Edema 0+. NEUROLOGICAL: Alert and motor intact. SKIN: LYMPHATICS: LABORATORY DATA: Labs reviewed. ASSESSMENT AND PLAN: 1. Stage 6 chronic kidney disease, plan dialysis. 2. Hypertension, stable. 3. Anemia, stable. The patient will have outpatient followup. Job ID: [id number] [facility]
== END 2018-09-16 17:51 | disposition home or self-care (01) | DRG 673 ==
LOC: ERS 10:21 → IMCU/EMU 14:43 → 2NO 09-13 19:46
PROVIDERS: ADMIT Internal Medicine; ATTEND Internal Medicine
PROC: 06HM33Z Insertion of Infusion Device into Right Femoral Vein, Percutaneous Approach (ICD-10-PCS; 2018-09-09)
PROC: 5A1D70Z Performance of Urinary Filtration, Intermittent, Less than 6 Hours Per Day (ICD-10-PCS; 2018-09-09)
PROC: 0JH63XZ Insertion of Tunneled Vascular Access Device into Chest Subcutaneous Tissue and Fascia, Percutaneous Approach (ICD-10-PCS; principal; 2018-09-16)
PROC: 02HV33Z Insertion of Infusion Device into Superior Vena Cava, Percutaneous Approach (ICD-10-PCS; 2018-09-16)
PROC: B518YZA Fluoroscopy of Superior Vena Cava using Other Contrast, Guidance (ICD-10-PCS; 2018-09-16)
DX: N17.9 Acute kidney failure, unspecified (principal); I50.23 Acute on chronic systolic (congestive) heart failure; I21.A1 Myocardial infarction type 2; E87.2 Acidosis; I13.2 Hypertensive heart and chronic kidney disease with heart failure and with stage 5 chronic kidney disease, or end stage renal disease; G93.49 Other encephalopathy; I47.1 Supraventricular tachycardia; E87.1 Hypo-osmolality and hyponatremia; N18.6 End stage renal disease; D63.1 Anemia in chronic kidney disease; E87.5 Hyperkalemia; I25.10 Atherosclerotic heart disease of native coronary artery without angina pectoris; E11.22 Type 2 diabetes mellitus with diabetic chronic kidney disease; E78.5 Hyperlipidemia, unspecified; J45.909 Unspecified asthma, uncomplicated; E55.9 Vitamin D deficiency, unspecified; E21.3 Hyperparathyroidism, unspecified; I25.5 Ischemic cardiomyopathy; I34.0 Nonrheumatic mitral (valve) insufficiency; E53.8 Deficiency of other specified B group vitamins; Z95.818 Presence of other cardiac implants and grafts; Z86.73 Personal history of transient ischemic attack (TIA), and cerebral infarction without residual deficits; Z79.899 Other long term (current) drug therapy; Z79.82 Long term (current) use of aspirin; Z88.0 Allergy status to penicillin
CPT/HCPCS: 36415; 36416; 71045; 76770; 80069; 82306; 82607; 82728; 82746; 82805; 83540; 83550; 83735; 83970; 85014; 85018; 85025; 86704; 86706; 86803; 87340; 90935; 93005; 93010; 93306; 94640; 96360; 96361; C1752; C1769; G0257; J0360; J1642; J1644; J1956; J2001; J2405; J2765; J3010; J3475; J3490; J7620; Q5105

== ENCOUNTER 2018-09-24 19:29 | Emergency (ER) | payer MEDICARE, OTHER ==
[2018-09-24] MEDS ORDERED: Ondansetron PF 4 MG/2 ML Vial ONE (20:15)
[2018-09-24 20:40] LABS: #Basophils 0.1 thou/uL (0.0-0.2); #Lymphocytes 3.1 thou/uL (1.20-3.40); #Monocytes 0.7 thou/uL (0.11-0.59); #Neutrophils 6.2 thou/uL (1.40-6.50); %Basophils 0.6 % (0.0-1.0); %Eosinophils 0.2 % (0.0-10.0); %Lymphocytes 30.7 % (21.0-51.0); %Monocytes 7.1 % (0.0-10.0); %Neutrophils 61.5 % (42.0-75.0); Hemoglobin 9.7 g/dL (12.0-16.0); Mean Corpuscular HGB CONC 32.6 g/dL (32.0-36.0); Mean Corpuscular Hemoglobin 30.8 pg (27.0-31.0); Mean Corpuscular Volume 94.5 fL (78.0-98.0); Mean Platelet Volume 6.8 fL (7.4-10.4); Platelet Count 320 thou/uL (130-400); Red Blood Cell (RBC) Count 3.15 mill/uL (4.20-5.40); White Blood Cell (WBC) Count 10.1 thou/uL (4.8-10.8)
[2018-09-24 21:03] LABS: ALT (SGPT) 19 U/L (8-55); AST (SGOT) 19 U/L (5-34); Albumin 3.3 g/dL (3.5-5.0); Alkaline Phosphatase 479 U/L (40-150); Anion Gap 13 mmol/L (10-20); BUN (Urea Nitrogen) 7 mg/dL (9.8-20.1); Bilirubin, Total 0.8 mg/dL (0.2-1.2); CK (CPK) 25 U/L (29-168); Calc. Creatinine Clearance 0 mL/min (70-130); Calcium 9.1 mg/dL (7.8-10.44); Carbon Dioxide 29 mmol/L (22-29); Chloride 97 mmol/L (98-107); Estimated GFR-MDRD 29; Globulin 4.9 g/dL (2.4-3.5); Glucose 109 mg/dL (70-105); Lipase 40 U/L (8-78); Protein, Total 8.2 g/dL (6.0-8.3); Sodium 136 mmol/L (136-145)
[2018-09-24 21:10] LABS: Potassium 2.8 mmol/L (3.5-5.1)
--- NOTE | 2018-09-24 21:16 | RAD ---
Chest one view HISTORY: Dyspnea. COMPARISON: 09/16/2018. FINDINGS: Cardiac silhouette is magnified by projection. Pulmonary vasculature upper limits of normal . Mediastinum is midline. Large caliber right internal jugular catheter is in place. No lobar consolidation or evidence of pneumothorax. IMPRESSION: Chronic-type findings are stable. No active cardiopulmonary abnormalities are demonstrate d.
[2018-09-24 21:23] LABS: CKMB 1.1 ng/mL (0-6.6)
== END 2018-09-25 02:45 | disposition home or self-care (01) ==
LOC: ERS 19:29
DX: R11.2 Nausea with vomiting, unspecified (principal); E87.6 Hypokalemia; I12.0 Hypertensive chronic kidney disease with stage 5 chronic kidney disease or end stage renal disease; E11.22 Type 2 diabetes mellitus with diabetic chronic kidney disease; N18.6 End stage renal disease; E78.5 Hyperlipidemia, unspecified; J45.909 Unspecified asthma, uncomplicated; Z99.2 Dependence on renal dialysis
CPT/HCPCS: 36415; 71045; 80053; 82550; 82553; 83690; 83880; 84484; 85025; 93005; 96374; J2405

== ENCOUNTER 2018-09-27 12:57 | Inpatient (IN) | payer MEDICARE, OTHER ==
[2018-09-27 13:18] LABS: Base Excess-Venous 3.9 mmol/L (-2.0 to 3.0); Bicarbonate (HCO3v) 29.6 mmol/L (22.0-28.0); CO2 Tension (PvCO2) 49.2 mmHg (40.0-50.0); Calcium, Ionized 1.08 mmol/L (See Comments:); Chloride 103 mmol/L (98-107); Glucose 153 mg/dL (70-105); Hemoglobin - Calc 10.6 g/dL (12.0-16.0); Lactate 0.92 mmol/L (0.50-2.20); Potassium 3.2 mmol/L (3.5-5.1); Sodium 138 mmol/L (138-145); T. Carbon Dioxide 31.1 mmol/L (22.0-28.0); vO2 Saturation-calc 51.9 % (60.0-85.0)
[2018-09-27 13:25] LABS: #Eosinphils 0.1 thou/uL (0.0-0.7); #Monocytes 0.6 thou/uL (0.11-0.59); #Neutrophils 5.3 thou/uL (1.40-6.50); %Basophils 0.5 % (0.0-1.0); %Eosinophils 0.7 % (0.0-10.0); %Lymphocytes 24.5 % (21.0-51.0); %Monocytes 7.8 % (0.0-10.0); %Neutrophils 66.5 % (42.0-75.0); Hemoglobin 9.4 g/dL (12.0-16.0); Mean Corpuscular HGB CONC 32.5 g/dL (32.0-36.0); Mean Corpuscular Hemoglobin 30.1 pg (27.0-31.0); Mean Corpuscular Volume 92.6 fL (78.0-98.0); Platelet Count 286 thou/uL (130-400); RBC Distribution Width 12.6 % (11.5-14.5); Red Blood Cell (RBC) Count 3.13 mill/uL (4.20-5.40)
[2018-09-27 13:48] LABS: ALT (SGPT) 12 U/L (8-55); AST (SGOT) 18 U/L (5-34); Albumin 2.8 g/dL (3.5-5.0); Alkaline Phosphatase 356 U/L (40-150); Anion Gap 13 mmol/L (10-20); BUN (Urea Nitrogen) 28 mg/dL (9.8-20.1); Bilirubin, Total 0.5 mg/dL (0.2-1.2); Calc. Creatinine Clearance 0 mL/min (70-130); Calcium 8.4 mg/dL (7.8-10.44); Carbon Dioxide 25 mmol/L (22-29); Chloride 101 mmol/L (98-107); Estimated GFR-MDRD 10; Globulin 4.2 g/dL (2.4-3.5); Glucose 151 mg/dL (70-105); Potassium 3.2 mmol/L (3.5-5.1); Sodium 136 mmol/L (136-145)
--- NOTE | 2018-09-27 13:52 | RAD ---
PORTABLE CHEST 1 VIEW: Date: 09/27/18 Time: 1319 hours HISTORY: Hypotension. Patient on dialysis. Missed dialysis today. FINDINGS/IMPRESSION: Comparison made with exam of 09/24/18. The heart size is prominent. The aorta is tortuous. Right-sided dialysis catheter remains in place. N o lobar consolidation, pneumothoraces, jess pulmonary edema, or large effusions are seen. There are degenerative changes in the spine. POS: [facility]
[2018-09-27 14:11] LABS: CKMB 1.1 ng/mL (0-6.6)
--- NOTE | 2018-09-27 14:57 | CT ---
CT abdomen pelvis with IV contrast HISTORY: Abdominal pain and weakness FINDINGS: Mild infiltrates is seen in the lung bases. There are gallstones. There is fatty infiltration of the liver. No hepatic mass or abnormal biliary d uctal dilatation is seen. The spleen, pancreas, adrenal glands are unremarkable. There is a 14 mm cyst in the superior pole of the right kidney. A smaller low-density lesion in the a nterior right renal cortex is also likely a cyst correlating to the findings of the renal ultrasound of 09/09/2018. There is a lobulation versus mass in the superomedial aspect of the left kid emerald. No free air or free fluid in lymphadenopathy seen in the abdomen or pelvis. There are vascular calcif ications without evidence of aneurysmal dilatation of the abdominal aorta. Uterus is present. There are degenerative changes in the spine. There is compression of L1 vertebral body. The small bowel loo ps are not abnormally dilated. IMPRESSION: 1. Cholelithiasis 2. Right renal cysts 3. Mass versus lobulation in the left kidney. A follow-up CT scan using the renal mass protocol or MRI should be obtained in 3 months.
[2018-09-27] MEDS ORDERED: Potassium Chloride 20 MEQ TAB ONE (15:31)
[2018-09-27] MEDS ORDERED: ISOVUE-370 76%-LOCM 1 ML ONE (16:20)
[2018-09-27 16:44] LABS: Troponin I 0.266 ng/mL (< 0.028)
[2018-09-27] MEDS ORDERED: Guaifenesin DM 100-10/5 ML UDCUP PO PRN (19:39)
[2018-09-27] MEDS ORDERED: Calcium Carbonate 500 MG ChewTAB PO PRN (19:39)
[2018-09-27] MEDS ORDERED: Dextrose 5% in Water 1,000 ML IV PRN (19:39)
[2018-09-27] MEDS ORDERED: Senokot S 8.6-50 MG TAB PO PRN (19:39)
[2018-09-27] MEDS ORDERED: Dextrose 50% Abboject 50 ML SYRINGE SLOW IVP PRN (19:39)
[2018-09-27] MEDS ORDERED: Bisacodyl 10 MG SUPP PR PRN (19:39)
[2018-09-27] MEDS ORDERED: Potassium Chloride 20 MEQ TAB PO SCH (20:00)
--- NOTE | 2018-09-27 20:31 | HP ---
REASON FOR ADMISSION: Abdominal pain, hypotension post dialysis. HISTORY OF PRESENTING ILLNESS: Please note, the patient is a very poor historian. This history is mostly obtained by talking to the ER physician, EMS records as the patient is not a very good historian. She states that she has no complaints at present. Has no abdominal pain, nausea, or vomiting. She also mentions that her last dialysis was on Thursday. Per ER records, the patient had dialysis today. Post dialysis, the patient could not walk and her blood pressure was 90/30. EMS gave her fluid boluses and the blood pressure improved. She apparently complained of left lower quadrant abdominal pain. We will talk to Dr. Jang, her real estate recruiter, to find out if she really had dialysis today. Currently, has no complaints of chest pain, palpitation, PND, or orthopnea. She is very slow to respond. The patient's memory is also a bit impaired. PAST MEDICAL AND SURGICAL HISTORY: The patient was started on dialysis when she got hospitalized here in the early part of this month on the . Hypertension, coronary artery disease with prior stent placed in [place] and [place], diabetes mellitus type 2, hypertension, dyslipidemia, history of asthma, left eye surgery , right tunneled hemodialysis catheter, cardiomyopathy with EF of around 40% to 45 %. CURRENT MEDICATIONS: The patient was discharged with the following medications. Please note, the patient does not recall any of her medications. She is on: 1. Aspirin 81 mg p.o. daily. 2. Plavix 75 mg p.o. daily. 3. Carvedilol 3.125 mg p.o. twice daily. 4. Lisinopril 5 mg p.o. daily. 5. Isosorbide dinitrate 10 mg three times daily. 6. Hydralazine 25 mg three times daily. 7. Folic acid 1 mg p.o. daily. 8. Pepcid 20 mg p.o. daily. 9. Vitamin D3 of 2000 units p.o. twice daily. 10. Atorvastatin 10 mg p.o. q.p.m. ALLERGIES: ALLERGIC TO PENICILLIN. PERSONAL HISTORY: Does not abuse alcohol or drugs. No history of smoking. FAMILY HISTORY: Mother at the age of 59 years, she has known history of kidney cancer. Father of unknown causes at the age of 63 years, he also had tracheostomy. CODE STATUS: Full. Power of mergers and acquisitions attorney is her son, Mr. Ramirez. REVIEW OF SYSTEMS: CONSTITUTIONAL: Negative for weight loss or gain, ability to conduct usual activities. SKIN: Negative for rash, itching. EYES: Negative for double vision, pain. ENT/MOUTH: Negative for nose bleeding, neck stiffness, pain, tenderness. CARDIOVASCULAR: Negative for palpitations, dyspnea on exertion, orthopnea. RESPIRATORY: Negative for shortness of breath, wheezing, cough, hemoptysis, fever or night sweats. GASTROINTESTINAL: Negative for poor appetite, abdominal pain, heartburn, nausea , vomiting, constipation, or diarrhea. GENITOURINARY: Negative for urgency, frequency, dysuria, nocturia. MUSCULOSKELETAL: Negative for pain, swelling. NEUROLOGIC/PSYCHIATRIC: Negative for anxiety, depression. ALLERGY/IMMUNOLOGIC: Negative for skin rash, bleeding tendency. PHYSICAL EXAMINATION: GENERAL: The patient is a 58-year-old female, who is currently not in any acute distress. VITAL SIGNS: Blood pressure 114/68, pulse 70 per minute, respiratory rate 16 per minute, temperature 98 degrees Fahrenheit, saturating 90% on room air and 100% on 2 L nasal cannula. NECK: Supple. No elevated JVD. HEENT: Eyes; extraocular muscles intact. Pupils reacting to light. Oral cavity, mucous membranes are moist. No exudates or congestion. CARDIOVASCULAR: S1 and S2 heard. Regular rhythm. RESPIRATORY: Air entry 1+ bilateral. Scattered rales in the basal area. ABDOMEN: Soft. Bowel sounds heard. No tenderness, rigidity, or guarding. EXTREMITIES: No peripheral edema or calf tenderness. VASCULAR: Peripheral pulses 1+ bilateral. No ischemic ulcerations or gangrene. CENTRAL NERVOUS SYSTEM: No gross focal deficits noted. The patient is very slow to move her extremities. Also, the patient is very slow to respond to questions and has to think hard to give her answers. She does respond with correct answers 3 out of 5 questions. PSYCHIATRIC: No obvious hallucinations or delusions. LABORATORY DATA: Chest x-ray done shows cardiomegaly. No infiltrates seen. CT of the abdomen and pelvis with IV contrast done shows cholelithiasis, lobulation of left kidney. Followup CAT scan recommended in 3 months. There is no free air or free fluid or lymphadenopathy in the abdomen or pelvis. There are vascular calcifications seen in the abdominal aorta. There is a L1 compression seen. There is no small bowel obstruction noted. The EKG done shows normal sinus rhythm at 66 beats per minute. There is T-inversion seen in the lead I and aVL. There is also poor R-wave progression noted. Incomplete LBBB seen. Troponin I 0.26, CK-MB 1.1. Alkaline phosphatase 356. AST, ALT, and total bilirubin within normal limits. Albumin is 2.8, calcium 8.4, serum glucose 151, BUN 28, creatinine 5.6, serum bicarb is 25, potassium 3.2, sodium 138. Venous blood gas pH is 7.38. White count of 8, H and H of 9 and 29, platelet count 286, MCV is 92 with 66% neutrophils. CLINICAL IMPRESSION AND PLAN: The patient will be under observation on telemetry for acute encephalopathy with the patient slumping over, likely due to hypotension. Her initial recorded blood pressure was 60/30 by EMS. She was given 2 L of IV fluids by EMS. Currently, her blood pressure has come up to 114 systolic. The patient is on dialysis on Thursday, Thursday, Thursday, and likely will hold off on her dialysis today. 10 mEq of IV potassium was given in the ER. We will give another 40 p.o. one dose now. We will also continue IV fluids normal saline at 90 mL/h for a total of 2 L. We will obtain MRI of the brain without contrast to rule out cerebrovascular accident. Clinically, has no signs or symptoms of stroke. She is moving all 4 extremities. She has generalized deconditioning likely from recent hospitalization. We will continue her aspirin, Plavix, Lipitor, cholecalciferol , Pepcid as before. She will be on Humalog mild scale coverage. We will consult Dr. Jang, her real estate recruiter. We will also ascertain if the patient really missed her dialysis or had a dialysis today leading to volume depletion. Job ID: [id number] [facility]
[2018-09-27] MEDS: Sodium Chloride 0.9% 1,000 ML IV SCH (21:35)
[2018-09-27] MEDS: Atorvastatin Calcium 10 MG TAB PO SCH (21:35)
[2018-09-27 22:59] VITALS: BMI 26.5
--- NOTE | 2018-09-27 23:52 | CON ---
DATE OF CONSULTATION: REASON FOR CONSULTATION: End-stage renal disease for maintenance hemodialysis. HISTORY OF PRESENT ILLNESS: This is a 58-year-old female, on dialysis, Thursday, Thursday, Thursday, presented to the hospital with weakness. The patient was noted to have a low potassium. The patient denies headache, numbness, tingling, or weakness. Denies any nausea, vomiting, or chest pain. PAST MEDICAL HISTORY: Significant for end-stage renal disease, hypertension, anemia, history of secondary hyperparathyroidism, history of tunneled dialysis catheter, history of tachy-chidi syndrome, history of ICD placement. SOCIAL HISTORY: Noncontributory. FAMILY HISTORY: Negative for ESRD. ALLERGIES: REVIEWED. HOME MEDICATIONS: List reviewed. Hospital medication list reviewed. REVIEW OF SYSTEMS: A 15-point review of system was performed, negative except for positives noted above. GENERAL: HEAD: NECK: No swelling or lumps. NOSE: No epistaxis or discharge. EYES: No diplopia or pain. RESPIRATORY: CARDIOVASCULAR: GASTROINTESTINAL: /CONTINUOUS MINING OPERATOR: MUSCULOSKELETAL: No joint pain. NEUROPSYCHIATIC SYSTEMS: No suicidal ideation. No ideation. SKIN: Denies any rash or ulcer. CONSTITUTIONAL: No fever or chills. PHYSICAL EXAMINATION: The patient is awake, alert. VITAL SIGNS: Pulse 68, breathing 16, blood pressure 130/70. GENERAL APPEARANCE AND MENTAL STATUS: Fair. HEAD/NECK: Normocephalic. Atraumatic. EYES: EOMI. No deformity. EARS: Clear. No ulcers. NOSE: Intact. No lesions. MOUTH: Clear. No discharge. THROAT: Clear. No exudate. LUNGS: Clear. No crackles. CARDIAC: S1, S2. No rub. ABDOMEN: Benign. Bowel sounds positive. GENITALIA/RECTUM: Beebe absent. BACK/EXTREMITIES: Edema 0+. NEUROLOGICAL: Alert and motor intact. SKIN: LYMPHATICS: LABORATORY DATA: Reviewed. ASSESSMENT AND PLAN: 1. Stage 6 chronic kidney disease. No indication for dialysis. 2. Hypokalemia. Recommend 10 mEq of potassium. 3. Anemia, stable. Medication based on GFR appropriate. 4. Acute coronary syndrome. Management per primary team. Job ID: [id number]
[2018-09-28 05:47] LABS: #Eosinphils 0.1 thou/uL (0.0-0.7); #Lymphocytes 2.8 thou/uL (1.20-3.40); #Monocytes 0.9 thou/uL (0.11-0.59); #Neutrophils 4.8 thou/uL (1.40-6.50); %Basophils 0.3 % (0.0-1.0); %Eosinophils 1.1 % (0.0-10.0); %Lymphocytes 32.9 % (21.0-51.0); %Monocytes 10.1 % (0.0-10.0); %Neutrophils 55.6 % (42.0-75.0); Hemoglobin 8.6 g/dL (12.0-16.0); Mean Corpuscular HGB CONC 32.1 g/dL (32.0-36.0); Mean Corpuscular Hemoglobin 30.9 pg (27.0-31.0); Mean Corpuscular Volume 96.2 fL (78.0-98.0); Mean Platelet Volume 6.6 fL (7.4-10.4); Platelet Count 289 thou/uL (130-400); RBC Distribution Width 12.8 % (11.5-14.5); Red Blood Cell (RBC) Count 2.78 mill/uL (4.20-5.40); White Blood Cell (WBC) Count 8.6 thou/uL (4.8-10.8)
[2018-09-28 06:06] LABS: Albumin 2.7 g/dL (3.5-5.0); Anion Gap 15 mmol/L (10-20); BUN (Urea Nitrogen) 32 mg/dL (9.8-20.1); BUN/Creatinine Ratio 5.51; Calc. Creatinine Clearance 11 mL/min (70-130); Calcium 8.3 mg/dL (7.8-10.44); Carbon Dioxide 24 mmol/L (22-29); Chloride 101 mmol/L (98-107); Estimated GFR-MDRD 9; Glucose 99 mg/dL (70-105); Phosphorus 5.7 mg/dL (2.3-4.7); Potassium 3.3 mmol/L (3.5-5.1); Sodium 137 mmol/L (136-145)
[2018-09-28] MEDS: Sodium Chloride 0.9% 1,000 ML IV SCH (08:01)
[2018-09-28] MEDS: Famotidine 20 MG TAB PO SCH (09:05)
[2018-09-28] MEDS: Clopidogrel Bisulfate 75 MG TAB PO SCH (09:05)
[2018-09-28] MEDS: Folic Acid 1 MG TAB PO SCH (09:05)
[2018-09-28] MEDS: Aspirin Chewable 81 MG TAB PO SCH (09:05)
[2018-09-28] MEDS: Enoxaparin Sodium 30 MG/0.3 ML SYRINGE SC SCH (09:06)
--- NOTE | 2018-09-28 11:52 | PRG ---
DATE OF SERVICE: 09/28/2018 SUBJECTIVE: A 58-year-old female, being seen for end-stage kidney disease. The patient denied nausea, vomiting, or chest pain. OBJECTIVE: GENERAL: The patient is awake and alert. VITAL SIGNS: Afebrile, pulse 69, breathing 16, blood pressure 130/62. GENERAL APPEARANCE AND MENTAL STATUS: Fair. HEAD/NECK: Normocephalic. Atraumatic. EYES: EOMI. No deformity. EARS: Clear. No ulcers. NOSE: Intact. No lesions. MOUTH: Clear. No discharge. THROAT: Clear. No exudate. LUNGS: Clear. No crackles. CARDIAC: S1, S2. No rub. ABDOMEN: Benign. Bowel sounds positive. GENITALIA/RECTUM: Beebe absent. BACK/EXTREMITIES: Edema 0+. NEUROLOGICAL: Alert and motor intact. SKIN: LYMPHATICS: LABORATORY DATA: Reviewed. ASSESSMENT AND PLAN: 1. Stage 6 chronic kidney disease. Plan dialysis tomorrow. 2. Hypertension, stable. 3. Anemia, stable. 4. Hypokalemia. Recommend high-potassium diet. No indication for dialysis. 5. The patient has hypoalbuminemia. Recommend high-protein intake. Job ID: [id number]
[2018-09-28 13:12] LABS: Troponin I 0.192 ng/mL (< 0.028)
--- NOTE | 2018-09-28 15:19 | PDOC.HOSPP ---
- Subjective Subjective: pt up in bed no complains. pt was hypotensive. I did call nephrology and she was not dialyzed. will get cardiology to evaluate her. She has a hx of cad. - Objective Vital Signs & Weight: Vital Signs (12 hours) Temp Pulse Pulse Resp BP BP BP 09/28/18 12:00 97.9 F 74 16 09/28/18 10:15 75 133/76 118/66 157/86 H 09/28/18 07:51 97.8 F 79 16 09/28/18 04:00 97.7 F 69 20 BP Pulse Ox 09/28/18 12:00 149/88 H 95 09/28/18 10:15 09/28/18 07:51 127/58 L 98 09/28/18 04:00 130/60 100 Weight Weight 145 lb I&O: 09/27/18 09/28/18 09/29/18 06:59 06:59 06:59 Intake Total 1243 950 Balance 1243 950 Result Diagrams: 09/28/18 05:29 09/28/18 05:29 Additional Labs: Accuchecks 09/28/18 09/28/18 09/27/18 11:58 05:20 20:25 POC Glucose 151 H 109 182 H 09/27/18 19:28 POC Glucose 160 H ROS - Review of Systems All systems: All other ROS were reviewed and found negative. - Medication Medications: Active Medications Generic Name Dose Route Start Last Admin Trade Name Freq PRN Reason Stop Dose Admin Aspirin 81 mg 09/28/18 09:00 09/28/18 09:05 Aspirin Chewable PO 81 mg DAILY ROBBIE Administration Atorvastatin Calcium 10 mg 09/27/18 21:00 09/27/18 21:35 Lipitor PO 10 mg QPM ROBBIE Administration Cholecalciferol 2,000 units 09/27/18 21:00 09/28/18 09:05 Vitamin D3 PO 2,000 units BID ROBBIE Administration Clopidogrel Bisulfate 75 mg 09/28/18 09:00 09/28/18 09:05 Plavix PO 75 mg DAILY ROBBIE Administration Enoxaparin Sodium 30 mg 09/28/18 09:00 09/28/18 09:06 Lovenox SC 30 mg 0900 ROBBIE Administration Famotidine 20 mg 09/28/18 09:00 09/28/18 09:05 Pepcid PO 20 mg DAILY ROBBIE Administration Folic Acid 1 mg 09/28/18 09:00 09/28/18 09:05 Folvite PO 1 mg DAILY ROBBIE Administration Hosp A/P (1) Hypotension Status: Acute (2) Renal cyst Code(s): N28.1 - CYST OF KIDNEY, ACQUIRED Status: Acute (3) CAD (coronary artery disease) Code(s): I25.10 - ATHSCL HEART DISEASE OF [place] CORONARY ARTERY W/O ANG PCTRS Status: Chronic Qualifiers: Coronary Disease-Associated Artery/Lesion type: [place] artery [place] vs. transplanted heart: [place] heart Associated angina: without angina Qualified Code(s): I25.10 - Atherosclerotic heart disease of [place] coronary artery without angina pectoris - Plan pt was found to be hypotensive. spoke with nephrology who stated that pt did not get dialysis on thursday and recommended cardiac work up. she has a hx of stents. she is not complaining of any cp. she will need a repeat ct of abd/pel for her left renal cyst.
--- NOTE | 2018-09-28 17:13 | CON ---
DATE OF CONSULTATION: 09/28/2018 REASON FOR CONSULTATION: Hypotension. HISTORY OF PRESENT ILLNESS: Ms. Pereira is a pleasant 58-year-old female, who has seen Dr. Barton about 2 weeks ago, who comes to the hospital for hypotension. She had an episode of hypotension, blood pressures in the 60s/40s. EMS was called, and when they arrived, they found that blood pressure was 60/40 as well. They gave her IV fluids, and she responded well to them. Her blood pressure has remained normal since. She has a history of dilated ischemic cardiomyopathy, so Cardiology was consulted to make sure this is not related to her heart. She also has a history of end-stage renal disease and was started on hemodialysis earlier this month when she was in the hospital just 2 to 3 weeks ago. She currently denies any chest pain, tightness, or pressure. She started having diarrhea last night, and she has had about 5 different episodes of diarrhea since. PAST MEDICAL HISTORY: 1. End-stage renal disease, on hemodialysis. 2. Coronary artery disease with a recent stent placed about 4 months ago in the [facility]. 3. Type 2 diabetes. 4. Hypertension. 5. Hyperlipidemia. 6. Bronchial asthma. 7. Left eye surgery. OUTPATIENT MEDICATIONS: 1. Aspirin 81 a day. 2. Plavix 75 mg a day. 3. Carvedilol 3.125 b.i.d. 4. Lisinopril 5 mg a day. 5. Isosorbide dinitrate 10 mg 3 times a day. 6. Hydralazine 25 mg 3 times a day. 7. Folic acid. 8. Pepcid AC. 9. Vitamin D3. 10. Atorvastatin 10 mg at bedtime. ALLERGIES: PENICILLIN. SOCIAL HISTORY: No alcohol, tobacco, or drugs. FAMILY HISTORY: Noncontributory. Father of unknown cause at age 63. Mother at the age of 59 of renal cell carcinoma. REVIEW OF SYSTEMS: A 12-point review of systems was done and was all negative unless stated in the history of present illness. PHYSICAL EXAMINATION: VITAL SIGNS: Temperature 97.9, pulse 74, respiratory rate 16, saturating 95% on 2 L, blood pressure 149/88. GENERAL: Awake, alert, oriented x3. No distress. HEENT: Normocephalic and atraumatic. NECK: Supple. LUNGS: Clear. CARDIOVASCULAR: S1 and S2. No S3 or S4. No murmurs. ABDOMEN: Soft. Positive bowel sounds. EXTREMITIES: No edema. SKIN: Warm and dry. LABORATORY DATA: Laboratory work was reviewed. CBC was unremarkable except for hemoglobin 9.4 down to 8.6. ABG was reviewed. Chemistries were reviewed. Potassium is a little low at 3.3. BUN and creatinine are high. Glucose in the 150s to 160s. Albumin of 2.7. Troponin of 0.26, 0.26, and then 0.19. EKG was reviewed, no ischemic changes. ASSESSMENT: 1. Hypotension. 2. Diarrhea, acute onset. 3. End-stage renal disease, on hemodialysis. 4. Coronary artery disease, status post stenting about 4 months ago in [place]. 5. Ischemic cardiomyopathy, ejection fraction at 40% to 45% on most recent echo here in the hospital. PLAN: 1. Most likely, her hypotension is related to her infectious process and her diarrhea. 2. I doubt that this is a cardiac issue. 3. Agree with IV fluids as she has already been replenished. Currently, her blood pressure is much more stable. 4. We will follow. Job ID: [id number]
[2018-09-28] MEDS ORDERED: ISOSORBIDE DINITRATE 10 MG PO SCH (17:36)
[2018-09-28] MEDS ORDERED: hydrALAZINE 25 MG TAB PO SCH (17:45)
[2018-09-28] MEDS: Acetaminophen 325 MG TAB PO PRN (18:29)
--- NOTE | 2018-09-28 20:30 | MRI ---
NONCONTRAST MRI OF THE BRAIN: 09/28/18 HISTORY: Confusion. Altered mental status. COMPARISON: 09/09/18. FINDINGS: There is motion present on all sequences which does degrade image quality. As noted on the prior CT e xamination, there is an area of encephalomalacia and gliosis in the left occipital lobe. There are two subcentimeter foci of restricted diffusion seen within the right frontal centrum semiov ha suggesting acute white matter infarctions. There is no evidence of an acute cortical infarction. There are scattered punctate and patchy areas of increased FLAIR and T2 weighted signal intensity wit h increased FLAIR and T2 weighted signal intensity in the left aspect of the raji which are nonspeci fic but likely attributable to chronic small vessel ischemic changes. There is diffuse cerebral volume loss. There is mild ex vacuo dilatation involving the occipital hor n left lateral ventricle. Septum pellucidum and third ventricle are in the midline. There is mucosal thickening seen within the left sphenoid sinus. [place] lenses are not visualized. Remainder of the skull base has a grossly normal MRI appearance acc ounting for motion degradation. IMPRESSION: 1. Acute punctate white matter infarctions in the right frontal centrum semiovale. 2. Chronic small vessel ischemic changes and cerebral volume loss. 3. Encephalomalacia and gliosis left occipital lobe and posterior left temporal lobe. POS: VIKTOR
[2018-09-28] MEDS: Atorvastatin Calcium 10 MG TAB PO SCH (20:56)
[2018-09-28] MEDS: hydrALAZINE 25 MG TAB PO SCH (20:56)
[2018-09-28] MEDS: Loperamide HCl 2 MG CAP PO PRN (22:37)
[2018-09-29] MEDS: Folic Acid 1 MG TAB PO SCH (08:50)
[2018-09-29] MEDS: Carvedilol 3.125 MG TAB PO SCH ×2 (08:51→19:43)
[2018-09-29] MEDS: Lisinopril 5 MG TAB PO SCH (08:51)
[2018-09-29] MEDS: hydrALAZINE 25 MG TAB PO SCH ×3 (08:51→21:11)
[2018-09-29] MEDS: Clopidogrel Bisulfate 75 MG TAB PO SCH (08:51)
[2018-09-29] MEDS: Famotidine 20 MG TAB PO SCH (08:51)
[2018-09-29] MEDS: Aspirin Chewable 81 MG TAB PO SCH (08:51)
[2018-09-29] MEDS: Enoxaparin Sodium 30 MG/0.3 ML SYRINGE SC SCH (08:55)
[2018-09-29 08:59] LABS: #Eosinphils 0.1 thou/uL (0.0-0.7); #Lymphocytes 3.1 thou/uL (1.20-3.40); #Monocytes 0.8 thou/uL (0.11-0.59); %Basophils 0.5 % (0.0-1.0); %Lymphocytes 34.5 % (21.0-51.0); %Monocytes 9.1 % (0.0-10.0); Hemoglobin 8.8 g/dL (12.0-16.0); Mean Corpuscular Hemoglobin 30.3 pg (27.0-31.0); Mean Corpuscular Volume 94.8 fL (78.0-98.0); Mean Platelet Volume 6.8 fL (7.4-10.4); Platelet Count 323 thou/uL (130-400); RBC Distribution Width 12.6 % (11.5-14.5); Red Blood Cell (RBC) Count 2.89 mill/uL (4.20-5.40)
[2018-09-29 09:27] LABS: ALT (SGPT) 11 U/L (8-55); AST (SGOT) 14 U/L (5-34); Albumin 2.7 g/dL (3.5-5.0); Alkaline Phosphatase 332 U/L (40-150); Anion Gap 15 mmol/L (10-20); BUN (Urea Nitrogen) 38 mg/dL (9.8-20.1); Bilirubin, Total 0.5 mg/dL (0.2-1.2); CK (CPK) 54 U/L (29-168); Calc. Creatinine Clearance 12 mL/min (70-130); Calcium 8.5 mg/dL (7.8-10.44); Carbon Dioxide 23 mmol/L (22-29); Chloride 102 mmol/L (98-107); Estimated GFR-MDRD 10; Globulin 4.3 g/dL (2.4-3.5); Glucose 101 mg/dL (70-105); Potassium 3.6 mmol/L (3.5-5.1); Sodium 136 mmol/L (136-145)
--- NOTE | 2018-09-29 09:41 | PRG ---
DATE OF SERVICE: 09/29/2018 SUBJECTIVE: A 58-year-old female being seen for end-stage renal disease. The patient denied any nausea, vomiting, or chest pain. OBJECTIVE: CONSTITUTIONAL: On examination, the patient is awake and alert. VITAL SIGNS: Afebrile, pulse 81, breathing 16, and blood pressure 138/74. GENERAL APPEARANCE AND MENTAL STATUS: Fair. HEAD/NECK: Normocephalic. Atraumatic. EYES: EOMI. No deformity. EARS: Clear. No ulcers. NOSE: Intact. No lesions. MOUTH: Clear. No discharge. THROAT: Clear. No exudate. LUNGS: Clear. No crackles. CARDIAC: S1, S2. No rub. ABDOMEN: Benign. Bowel sounds positive. GENITALIA/RECTUM: Beebe absent. BACK/EXTREMITIES: Edema 0+. NEUROLOGICAL: Alert and motor intact. SKIN: LYMPHATICS: LABORATORY DATA: Reviewed. ASSESSMENT AND PLAN: 1. Stage 6 chronic kidney disease. We will check labs today and plan dialysis. 2. Hypertension, stable. 3. Anemia, stable. 4. Medications based on glomerular filtration rate are appropriate. Job ID: [id number]
--- NOTE | 2018-09-29 10:09 | ULT ---
Carotid duplex sonogram HISTORY: CVA. Vascular disease. FINDINGS: Right internal jugular vein at the level of the mid neck is noncompressible and expanded wi th echogenic material. No flow was seen within the internal jugular vein at the level of the neck. Right: No significant plaque visible. Color and spectral Doppler evaluation, peak systolic velocity o f 59 cm/s, and IC to CC ratio of 0.9 suggest no hemodynamically significant stenosis within the extracranial right ICA. Antegrade flow within the vertebral artery. Left: No significant plaque visible. Color and spectral Doppler evaluation, peak systolic velocity of 60 cm/s, and IC to CC ratio 0.9 suggest no hemodynamically significant stenosis within the extracranial left ICA. Antegrade flow within the vertebral artery. IMPRESSION: No sonographic evidence of significant extracranial ICA stenosis. Incidental note of a thrombosed right internal jugular vein. Findings were called to Dr. Norris at 1001 hours..
[2018-09-29 10:54] LABS: Anion Gap 14 mmol/L (10-20); BUN (Urea Nitrogen) 39 mg/dL (9.8-20.1); Calc. Creatinine Clearance 11 mL/min (70-130); Calcium 8.7 mg/dL (7.8-10.44); Carbon Dioxide 23 mmol/L (22-29); Chloride 102 mmol/L (98-107); Estimated GFR-MDRD 9; Glucose 101 mg/dL (70-105); Potassium 3.6 mmol/L (3.5-5.1); Sodium 135 mmol/L (136-145)
[2018-09-29] MEDS ORDERED: Pharmacy to Dose 1 EACH VANCOMYCIN IVPB PRN (16:55)
[2018-09-29] MEDS ORDERED: Vancomycin HCl 250 MG in Sodium Chloride 0.9% 100 ML IVPB SCH (17:00)
[2018-09-29] MEDS ORDERED: Vancomycin HCl 500 MG in Sodium Chloride 0.9% 100 ML IVPB SCH (17:00)
[2018-09-29] MEDS ORDERED: HOLD VANCOMYCIN FOR LEVEL >20 FS SCH (17:00)
[2018-09-29] MEDS ORDERED: Vancomycin HCl 750 MG in Sodium Chloride 0.9% 250 ML 250 ML IVPB SCH (17:00)
[2018-09-29] MEDS ORDERED: Vancomycin HCl 1 GM in Premix Bag 1 BAG IVPB SCH (17:00)
[2018-09-29] MEDS ORDERED: Vancomycin Sliding Scale 1 EACH FS ONE (17:00)
--- NOTE | 2018-09-29 17:06 | PDOC.HOSPP ---
- Subjective Subjective: pt up in bed no more diarrhea - Objective Vital Signs & Weight: Vital Signs (12 hours) Temp Pulse Pulse Pulse Resp BP BP 09/29/18 12:21 98.1 F 94 16 09/29/18 11:06 91 59 L 194/93 H 151/75 H 09/29/18 07:56 98.6 F 81 16 BP BP Pulse Ox 09/29/18 12:21 123/93 H 94 L 09/29/18 11:06 09/29/18 07:56 150/84 H 93 L Weight Weight 145 lb I&O: 09/28/18 09/29/18 09/30/18 06:59 06:59 06:59 Intake Total 1243 3820 Balance 1243 3820 Result Diagrams: 09/29/18 08:39 09/29/18 10:15 Additional Labs: Accuchecks 09/29/18 09/29/18 09/28/18 11:02 06:49 20:35 POC Glucose 112 H 152 H 201 H 09/28/18 17:10 POC Glucose 141 H ROS - Review of Systems All systems: All other ROS were reviewed and found negative. Respiratory: denies: cough, dry, shortness of breath, hemoptysis, SOB with excertion, pleuritic pain, sputum, wheezing, other Gastrointestinal: denies: nausea, vomitting, abdominal pain, diarrhea, constipation, melena, hematochezia, other - Medication Medications: Active Medications Generic Name Dose Route Start Last Admin Trade Name Freq PRN Reason Stop Dose Admin Acetaminophen 650 mg 09/27/18 19:39 09/28/18 18:29 Tylenol PO 650 mg Q4H PRN Administration Headache/Fever/Mild Pain (1-3) Aspirin 81 mg 09/28/18 09:00 09/29/18 08:51 Aspirin Chewable PO 81 mg DAILY ROBBIE Administration Carvedilol 3.125 mg 09/29/18 08:00 09/29/18 08:51 Coreg PO 3.125 mg BID- ROBBIE Administration Cholecalciferol 2,000 units 09/27/18 21:00 09/29/18 08:50 Vitamin D3 PO 2,000 units BID ROBBIE Administration Clopidogrel Bisulfate 75 mg 09/28/18 09:00 09/29/18 08:51 Plavix PO 75 mg DAILY ROBBIE Administration Enoxaparin Sodium 30 mg 09/28/18 09:00 09/29/18 08:55 Lovenox SC 30 mg 0900 ROBBIE Administration Famotidine 20 mg 09/28/18 09:00 09/29/18 08:51 Pepcid PO 20 mg DAILY ROBBIE Administration Folic Acid 1 mg 09/28/18 09:00 09/29/18 08:50 Folvite PO 1 mg DAILY ROBBIE Administration Hydralazine HCl 25 mg 09/28/18 21:00 09/29/18 08:51 Apresoline PO 25 mg TID ROBBIE Administration Lisinopril 5 mg 09/29/18 09:00 09/29/18 08:51 Zestril PO 5 mg DAILY ROBBIE Administration Loperamide HCl 2 mg 09/28/18 22:29 09/28/18 22:37 Imodium PO 10/01/18 22:30 2 mg ONE PRN Administration Diarrhea/Loose Stools - Exam Neck: negative: supple, symmetric, no JVD, no Thyromegaly, no lymphadenopathy, no carotid bruit, JVD Heart: negative: RRR, no murmur, no gallops, no rubs, normal peripheral pulses, irregular, diminshed peripheral pulses, murmur present, II/IV, III/IV Respiratory: negative: CTAB, no wheezes, no rales, no ronchi, normal chest expansion, no tachypnea, normal percussion, rales, rhonchi, tachypneic, wheezes Musculoskeletal: generalized weakness (significant weakness to lower ext) Hosp A/P (1) Hypotension Status: Acute (2) Renal cyst Code(s): N28.1 - CYST OF KIDNEY, ACQUIRED Status: Acute (3) CAD (coronary artery disease) Code(s): I25.10 - ATHSCL HEART DISEASE OF [place] CORONARY ARTERY W/O ANG PCTRS Status: Chronic Qualifiers: Coronary Disease-Associated Artery/Lesion type: [place] artery [place] vs. transplanted heart: [place] heart Associated angina: without angina Qualified Code(s): I25.10 - Atherosclerotic heart disease of [place] coronary artery without angina pectoris (4) Stroke Code(s): I63.9 - CEREBRAL INFARCTION, UNSPECIFIED Status: Acute - Plan spoke with pt's sister Denisa and she states that pt has not been able to ambulate for one week. She never had diarrhea at home. She also states that her last stent was in 2018. I did update her sister that she had a stroke also also found that she has a occluded right jugular vein where her tunnel cath is. I also updated her that i will consult neurology to get the ok to start her on AC. I will stop her plavix and continue AC. I will also get a ct lumbar spine for evaluation of why she is unable to walk. Not sure why she was hypotensive.
[2018-09-29] MEDS ORDERED: Heparin 25,000 units/D5W 500 ML IVPB SCH (19:30)
[2018-09-29] MEDS ORDERED: Heparin 10,000 UNITS/ 10 ML VIAL SLOW IVP SCH (19:30)
[2018-09-29 19:44] LABS: Hemoglobin 9.8 g/dL (12.0-16.0); Platelet Count 358 thou/uL (130-400)
[2018-09-29] MEDS: Atorvastatin Calcium 40 MG TAB PO SCH (21:11)
[2018-09-29] MEDS: Acetaminophen 325 MG TAB PO PRN (21:25)
[2018-09-30] MEDS: Loperamide HCl 2 MG CAP PO PRN (02:01)
[2018-09-30] MEDS: Acetaminophen 325 MG TAB PO PRN (03:59)
--- NOTE | 2018-09-30 07:36 | CON ---
DATE OF CONSULTATION: 09/29/2018 SUBJECTIVE: Ms. Pereira is doing well. No current complaints. Her diarrhea has resolved. Her blood pressure also appears stable. We were initially consulted for hypotension, likely related to volume depletion. OBJECTIVE: VITAL SIGNS: Blood pressure 117/73, pulse 92, temperature afebrile. LUNGS: Clear to auscultation. HEART: Regular rate and rhythm. ABDOMEN: Soft, nontender, and nondistended. EXTREMITIES: 1+ pitting edema. PERTINENT LABORATORY DATA: Hemoglobin 8.8. Sodium 135, potassium of 5.6. IMPRESSION: 1. Hypotension. 2. Ischemic cardiomyopathy. 3. Status post stent placement. RECOMMENDATIONS: Ms. Pereira's symptoms appear to have resolved. She continues to complain of weakness. Neurology has been consulted. Continue aspirin, atorvastatin, Plavix, and lisinopril in addition to low-dose Coreg. Otherwise, I have no further recommendations. She will continue to follow up as an outpatient with her primary real estate closing coordinator in [place]. Job ID: [id number]
[2018-09-30] MEDS: Aspirin Chewable 81 MG TAB PO SCH (08:51)
[2018-09-30] MEDS: Famotidine 20 MG TAB PO SCH (08:51)
[2018-09-30] MEDS: Folic Acid 1 MG TAB PO SCH (08:51)
[2018-09-30] MEDS: Lisinopril 5 MG TAB PO SCH (08:53)
[2018-09-30] MEDS: Carvedilol 3.125 MG TAB PO SCH ×2 (08:53→15:54)
[2018-09-30] MEDS: hydrALAZINE 25 MG TAB PO SCH ×3 (08:53→22:26)
--- NOTE | 2018-09-30 11:49 | HP ---
HISTORY OF PRESENT ILLNESS: Gerson Pereira is a 58-year-old black female, who lives in [place]. She dialyzes at [facility] Thursday, Thursday, and Thursday utilizing a left IJ hemodialysis catheter. Dr. Caceres placed this catheter on 09/16/2018. She has not had ultrasound vein mapping today. She has Hep-Lock in her hand and a bandage over left AC, indicative of recent blood draws. The patient states that they often draw blood from her AC areas bilaterally. The patient has in the last 2 months had coronary intervention with stents placed. Dr. Barton has seen her in this hospitalization and initially signed off. The patient has considered peritoneal dialysis. Dr. Jang, her acid changer is seeing her this hospitalization. This patient had an echocardiogram on 09/14/2018, revealing the EF of 40% to 45% with concentric LVH, [id number] mitral regurg, mild tricuspid regurg, moderately elevated pulmonary artery pressures. She is a poor historian. Ultrasound vein mapping in both arms has been ordered. There is no visibly to auscult good vein in either arm for a fistula. My recommendation at this point would be that I would talk to Dr. Jang, her acid changer, regarding the patient's desire to have a peritoneal dialysis catheter. She may need to have home evaluation education from the dialysis center prior to considering peritoneal dialysis catheter placement. Peritoneal dialysis catheter placement would be done laparoscopically and I have talked to Dr. Barton regarding the safety of this from a cardiac standpoint. Dr. Barton will obtain records from her typing office worker who performed her intervention with coronary stents 2 months ago. It is likely that she would be a safe candidate for general anesthetic for a laparoscopic peritoneal dialysis catheter performed this hospitalization or as an outpatient in the future. They may need more time to evaluate her home and consider her for PD to see if she is really a truly a good candidate. She would benefit from placement of an arm fistula. We will obtain ultrasound vein mapping of both arms. They evaluated for that. These procedures possibly could be performed this hospitalization or as an outpatient pending clinical course and need for hospitalization. ALLERGIES: PENICILLIN. HABITS: Tobacco, none. Alcohol, none. MEDICATIONS: 1. Hydralazine 25 t.i.d. 2. Lisinopril 5 daily. 3. Isosorbide t.i.d. 4. Folic acid 1 daily. 5. Pepcid 20 a day. 6. Plavix 75 a day. 7. Vitamin D3 b.i.d. 8. Carvedilol 3.125 mg b.i.d. with meals. 9. Atorvastatin in p.m. 10. Aspirin 81 mg a day. PAST SURGICAL HISTORY: 1. Coronary stents 2 months ago. 2. Right IJ hemodialysis catheter placed as per above date. PAST MEDICAL HISTORY: 1. Diabetes mellitus. 2. Hypertension. 3. Cardiomyopathy, EF 40% to 45% with some valvular dysfunction as described above. 4. History of asthma. 5. Left eye surgery. SOCIAL HISTORY: Power of patent attorney is son. The patient lives with a relative in [facility]. REVIEW OF SYSTEMS: Noncontributory otherwise. PHYSICAL EXAMINATION: VITAL SIGNS: Height 5 feet 2 inches, 145 pounds, 26 BMI, temperature 98.7, heart rate 76, blood pressure 114/70. HEAD, EARS, EYES, NOSE, AND THROAT: Unremarkable. NEUROLOGIC: Intact. No focal deficit. LUNGS: Clear to auscultation. CARDIAC: Regular rate and rhythm without murmur or gallop. ABDOMEN: Soft and nontender. No evident hernias. EXTREMITIES: No ankle edema. Palpable radial pulses bilaterally. IV hand, bandaged left AC indicative of recent blood draws. ASSESSMENT AND PLAN: 1. End-stage renal disease. We would recommend she avoid IV access, blood draws above her wrist and avoid antecubital access or blood draws to preserve her veins for future dialysis access. We would recommend laparoscopic peritoneal dialysis catheter placement and [id number] arm fistula pending vein mapping. We will await Cardiology evaluation and plan these procedures as an inpatient or outpatient. 2. She has thrombus around her right internal jugular catheter, which is common. No treatment is necessary after I have spoken with Dr. Norris regarding this. 3. Coronary artery disease. 4. Mitral regurgitation. 5. Diabetes mellitus. 6. Hypertension. Job ID: [id number]
--- NOTE | 2018-09-30 11:55 | CT ---
Exam: CT LUMBAR SPINE WITHOUT CONTRAST: HISTORY: Lower extremity weakness, x1 week. COMPARISON: None. FINDINGS: Diffuse bone demineralization. Vacuum disc phenomenon at L4-L5 with osteophyte formation. No spondylo listhesis. No spondylolysis. Visualized solid organs are grossly unremarkable. There is evidence of punctate hypodensities in the right renal cortex, too small to characterize. Isodense lesion is also noted in the left and right renal cortex. Bilateral nonobstructing intrarenal calculi versus vascular calcifications in the left and right hemipelvis, unchanged from CT (09/27/2018). Redemonstration of cholelithiasis. Mild loss of vertebral body height along the superior endplate of L1. There is a component of scleros is, along with lucency. There is no significant paraspinal swelling or hematoma. Overall there is minimal loss of vertebral body height, without retropulsion. Remaining lumbar vertebra have preservat ion of vertebral body height. Limited evaluation of the contents of the central spinal canal and neural foramina due to technique. T11-T12: There is narrowing of both subarticular zones secondary to disc material. At least moderate central canal stenosis. T12-L1: Generalized disc bulge results in mild central canal stenosis. Moderate bilateral neural fora amparo narrowing. L1-L2: No significant central canal stenosis or neural foraminal narrowing. L2-L3: No significant central canal stenosis or neural foraminal narrowing L3-L4: Generalized disc bulge, ligamentum flavum thickening, and facet hypertrophy result in mild gary tral canal stenosis. Right neural foramen is patent. Moderate left neural foraminal narrowing due to disc material and to lesser extent facet hypertrophy. L4-L5: Vacuum disc phenomenon. Broad-based disc bulge, ligamentum flavum thickening and facet hypertr ophy result in moderate to severe central canal stenosis. Moderate to severe bilateral neural foraminal narrowing. L5-S1: Generalized disc bulge, ligamentum flavum thickening and facet hypertrophy result in mild cent ral canal stenosis. Moderate right and left neural foraminal narrowing. IMPRESSION: 1. Superior endplate compression fracture with mild loss of vertebral body height at L1. There is radha dence of sclerosis suggesting a chronic component. A subacute component cannot be excluded. Further evaluation with MRI if clinically warranted. 2. Moderate to severe central canal stenosis at L4-L5. Additional degenerative changes of the lumbar spine as described above. Better interrogation with MRI is recommended. Transcribed Date/Time: 09/30/2018 12:26 PM
--- NOTE | 2018-09-30 12:06 | PRG ---
DATE OF SERVICE: 09/30/2018 SUBJECTIVE: A 58-year-old female, being seen for end-stage renal disease. The patient denied any nausea, vomiting, or chest pain. OBJECTIVE: CONSTITUTIONAL: The patient is awake and alert. VITAL SIGNS: Afebrile. Pulse 70, breathing 16, blood pressure 114/70. GENERAL APPEARANCE AND MENTAL STATUS: Fair. HEAD/NECK: Normocephalic. Atraumatic. EYES: EOMI. No deformity. EARS: Clear. No ulcers. NOSE: Intact. No lesions. MOUTH: Clear. No discharge. THROAT: Clear. No exudate. LUNGS: Clear. No crackles. CARDIAC: S1, S2. No rub. ABDOMEN: Benign. Bowel sounds positive. GENITALIA/RECTUM: Beebe absent. BACK/EXTREMITIES: Edema 0+. NEUROLOGICAL: Alert and motor intact. SKIN: LYMPHATICS: LABORATORY DATA: Reviewed. ASSESSMENT AND PLAN: 1. Stage 6 chronic kidney disease, continue hemodialysis. 2. Hypertension, stable. 3. Anemia, stable. 4. Medication based on GFR, appropriate. We will plan dialysis on Thursday, Thursday, and Thursday. Job ID: [id number]
[2018-09-30] MEDS ORDERED: Heparin 10,000 UNITS/ 10 ML VIAL ONE (14:12)
--- NOTE | 2018-09-30 14:14 | ULT ---
ULTRASOUND VESSEL MAPPING FOR DIALYSIS ACCESS: Date: 09/30/18 COMPARISON: None. TECHNIQUE: Haney scale, color flow, Doppler imaging, and spectral waveform analysis performed of the left and rig ht upper extremity arteriovenous system. FINDINGS: RIGHT UPPER EXTREMITY CEPHALIC VEIN Proximal Humerus: 2.9 mm Mid Humerus: 3.1 mm Distal Humerus: 3.6 mm Antecubital Fossa: 2.9 mm Proximal Forearm: 1.9 mm Mid Forearm: 2.0 mm Distal Forearm: 1.2 mm BASILIC VEIN Proximal Humerus: 4.1 mm Mid Humerus: 3.9 mm Distal Humerus: 2.5 mm Antecubital Fossa: 1.9 mm Proximal Forearm: 1.8 mm Mid Forearm: 1.3 mm Distal Forearm: 1.6 mm BRACHIAL ARTERY: 3.7 mm RADIAL ARTERY: 1.8 mm ULNAR ARTERY: 1.3 mm LEFT UPPER EXTREMITY CEPHALIC VEIN Proximal Humerus: 2.7 mm Mid Humerus: 2.8 mm Distal Humerus: 2.9 mm Antecubital Fossa: 2.8 mm Proximal Forearm: 1.2 mm Mid Forearm: 1.1 mm Distal Forearm: 1.0 mm BASILIC VEIN Proximal Humerus: 2.5 mm Mid Humerus: 1.6 mm Distal Humerus: 1.7 mm Antecubital Fossa: 2.0 mm Proximal Forearm: 1.1 mm Mid Forearm: 0.7 mm Distal Forearm: 0.6 mm BRACHIAL ARTERY: 3.3 mm RADIAL ARTERY: 1.6 mm ULNAR ARTERY: 2.2 mm IMPRESSION: Vein mapping as above. POS: OFF
--- NOTE | 2018-09-30 14:57 | PRG ---
DATE OF SERVICE: 09/30/2018 Gerson Pereira was revisited today. She had told Dr. Barton and Dr. Choi that she had her coronary stents 2 months ago. I called her sister, Denisa, per telephone, discussed with her the patient's care. Although the patient states that she is interested in peritoneal dialysis once I described the process of peritoneal dialysis, the sister, Denisa, did not believe that she would be capable of doing this at home and there were no reliable caregivers to supervise that. She did not have anybody consistently with her at home every night to ensure the peritoneal dialysis is done correctly and they did not think that this is a reasonable dialysis option to pursue and instead wanted to continue hemodialysis. Ultrasound vein mapping in both arms has been ordered and is pending and hemodialysis access in her upper extremities can be performed under regional anesthesia and sedation. The plan is to perform left more than likely or possibly right arm fistula (pending vein mapping), dialysis access Thursday under regional TIVA anesthesia, which should be a safe consideration. Further discussion with the sister revealed that the patient had coronary stents placed 2 years ago at [facility]. Plan is to perform Thursday, tomorrow, under regional and intravenous sedation left or right arm dialysis fistula, pending vein mapping to select side. We will discuss with family further as I informed they are in-house. I have discussed with Dr. Barton and to inform him that her coronary stents were placed 2 years ago, not 2 months ago. Job ID: [id number]
--- NOTE | 2018-09-30 15:30 | PDOC.HOSPP ---
- Subjective Subjective: pt up in bed no complains - Objective Vital Signs & Weight: Vital Signs (12 hours) Temp Pulse Pulse Pulse Resp BP BP 09/30/18 13:47 97.8 F 77 14 09/30/18 10:03 85 135/70 09/30/18 10:00 85 09/30/18 08:53 76 114/70 09/30/18 08:00 98.7 F 85 14 09/30/18 04:00 99.1 F 85 19 BP BP BP Pulse Ox 09/30/18 13:47 111/65 97 09/30/18 10:03 09/30/18 10:00 135/70 09/30/18 08:53 09/30/18 08:00 104/74 94 L 09/30/18 04:00 119/59 L 92 L Weight Admit Weight 145 lb Weight 145 lb I&O: 09/29/18 09/30/18 10/01/18 06:59 06:59 06:59 Intake Total 3820 Balance 3820 Result Diagrams: 09/29/18 19:35 09/29/18 10:15 Additional Labs: Accuchecks 09/30/18 09/30/18 09/29/18 12:00 06:04 20:43 POC Glucose 157 H 117 H 153 H ROS - Review of Systems All systems: All other ROS were reviewed and found negative. Cardiovascular: denies: chest pain, palpitations, orthopnea, paroxysmal noc. dyspnea, edema, light headedness, other Gastrointestinal: denies: nausea, vomitting, abdominal pain, diarrhea, constipation, melena, hematochezia, other - Medication Medications: Active Medications Generic Name Dose Route Start Last Admin Trade Name Freq PRN Reason Stop Dose Admin Acetaminophen 650 mg 09/27/18 19:39 09/30/18 03:59 Tylenol PO 650 mg Q4H PRN Administration Headache/Fever/Mild Pain (1-3) Aspirin 81 mg 09/28/18 09:00 09/30/18 08:51 Aspirin Chewable PO 81 mg DAILY ROBBIE Administration Atorvastatin Calcium 40 mg 09/29/18 08:18 09/29/18 21:11 Lipitor PO 40 mg QPM ROBBIE Administration Calcium Carbonate 1,000 mg 09/27/18 19:39 09/30/18 02:02 Tums PO 1,000 mg Q4H PRN Administration Heartburn or Indigestion Carvedilol 3.125 mg 09/29/18 08:00 09/30/18 08:53 Coreg PO 3.125 mg BID-WM ROBBIE Administration Cholecalciferol 2,000 units 09/27/18 21:00 09/30/18 08:51 Vitamin D3 PO 2,000 units BID ROBBIE Administration Famotidine 20 mg 09/28/18 09:00 09/30/18 08:51 Pepcid PO 20 mg DAILY ROBBIE Administration Folic Acid 1 mg 09/28/18 09:00 09/30/18 08:51 Folvite PO 1 mg DAILY ROBBIE Administration Heparin Sodium (Porcine) 0 units 09/29/18 19:30 09/29/18 21:16 Heparin 1,000 Units/Ml (10 Ml) SLOW IVP 5,392 unit ASDIR ROBBIE Administration Protocol Hydralazine HCl 25 mg 09/28/18 21:00 09/30/18 08:53 Apresoline PO 25 mg TID ROBBIE Administration Heparin Sodium/Dextrose 500 mls @ 0 mls/hr 09/29/18 19:30 09/29/18 21:21 Heparin 25,000 Units/D5w 500 Ml IVPB 500 mls INF ROBBIE Administration Protocol Per Protocol Lisinopril 5 mg 09/29/18 09:00 09/30/18 08:53 Zestril PO 5 mg DAILY ROBBIE Administration Loperamide HCl 2 mg 09/28/18 22:29 09/30/18 02:01 Imodium PO 10/01/18 22:30 2 mg ONE PRN Administration Diarrhea/Loose Stools - Exam Respiratory: negative: CTAB, no wheezes, no rales, no ronchi, normal chest expansion, no tachypnea, normal percussion, rales, rhonchi, tachypneic, wheezes Gastrointestinal: negative: soft, non-tender, non-distended, normal bowel sounds , no palpable masses, no hepatomegaly, no splenomegaly, no bruit, tender to palpation, distended, diminished bowl sounds, voluntary guarding Hosp A/P (1) Hypotension Status: Acute (2) Renal cyst Code(s): N28.1 - CYST OF KIDNEY, ACQUIRED Status: Acute (3) CAD (coronary artery disease) Code(s): I25.10 - ATHSCL HEART DISEASE OF [place] CORONARY ARTERY W/O ANG PCTRS Status: Chronic Qualifiers: Coronary Disease-Associated Artery/Lesion type: [place] artery [place] vs. transplanted heart: [place] heart Associated angina: without angina Qualified Code(s): I25.10 - Atherosclerotic heart disease of [place] coronary artery without angina pectoris (4) Stroke Code(s): I63.9 - CEREBRAL INFARCTION, UNSPECIFIED Status: Acute (5) Weakness of lower extremity Code(s): R29.898 - OTH SYMPTOMS AND SIGNS INVOLVING THE MUSCULOSKELETAL SYSTEM Status: Acute - Plan will check MRI of lumbar spine. per surgery pt does not need blood thinner. pt on asa/statin for stroke.
--- NOTE | 2018-09-30 21:33 | MRI ---
MRI OF LUMBAR SPINE WITHOUT CONTRAST: 09/30/18 COMPARISON: None. HISTORY: Leg weakness. TECHNIQUE: Multiplanar and multisequence MRI imaging of the lumbar spine obtained without contrast. FINDINGS: The sagittal STIR imaging demonstrates no focal area of osseous marrow edema. On the basis of five raji mbar type vertebral bodies, the conus medullaris terminates at the L1 level. T12-L1: Disc space narrowing and disc desiccation. Mild disc bulge. No significant central canal or n eural foraminal stenosis. There is a Schmorl's node versus old superior end plate fracture of L1. L1-2: Mild bilateral facet hypertrophy. Intervertebral disc height and signal intensity is grossly un remarkable with no significant central canal or neural foraminal stenosis. L2-3: Mild bilateral facet hypertrophy with no significant central canal or neural foraminal stenosis . Intervertebral disc height and signal intensity within normal limits. L3-4: Mild bilateral facet hypertrophy. Mild left sided neural foraminal stenosis. No significant gary tral canal stenosis. L4-5: Disc space narrowing and disc desiccation, disc bulge and small superimposed central disc protr usion causes a mild degree of central canal stenosis. There is bilateral facet hypertrophy with mild bilateral neural foraminal stenosis. L5-S1: Mild bilateral facet hypertrophy. Mild bilateral neural foraminal stenosis. No significant gary tral canal stenosis. Review of the retroperitoneal structures demonstrates a nonspecific T2 hypointense lesion within the medial aspect of the left kidney measuring 1.7 cm. This is not consistent with a simple cyst. This co uld represent a solid renal mass. IMPRESSION: 1. Degenerative disc disease within the lumbar spine, most prominent at the L4-5 level. 2. Nonspecific left renal lesion. Recommend follow-up CT or MRI with and without contrast using a renal mass protocol as this lesion could represent a solid renal mass. Code T POS: OFF
[2018-09-30] MEDS: Atorvastatin Calcium 40 MG TAB PO SCH (22:26)
[2018-10-01] MEDS: Carvedilol 3.125 MG TAB PO SCH ×2 (05:59→17:31)
[2018-10-01] MEDS: Famotidine 20 MG TAB PO SCH (09:22)
[2018-10-01] MEDS: Aspirin Chewable 81 MG TAB PO SCH (09:22)
[2018-10-01] MEDS: Folic Acid 1 MG TAB PO SCH (09:22)
[2018-10-01] MEDS: hydrALAZINE 25 MG TAB PO SCH ×3 (09:22→20:29)
[2018-10-01] MEDS: Lisinopril 5 MG TAB PO SCH (09:23)
--- NOTE | 2018-10-01 09:23 | PRG ---
DATE OF SERVICE: 10/01/2018 SUBJECTIVE: A 58-year-old female being seen for end-stage renal disease. The patient denied nausea, vomiting, or chest pain. OBJECTIVE: See above. GENERAL: The patient is awake and alert, in no acute distress. VITAL SIGNS: Afebrile, pulse 65, breathing 16, blood pressure 113/62. GENERAL APPEARANCE AND MENTAL STATUS: Fair. HEAD/NECK: Normocephalic. Atraumatic. EYES: EOMI. No deformity. EARS: Clear. No ulcers. NOSE: Intact. No lesions. MOUTH: Clear. No discharge. THROAT: Clear. No exudate. LUNGS: Clear. No crackles. CARDIAC: S1, S2. No rub. ABDOMEN: Benign. Bowel sounds positive. GENITALIA/RECTUM: Beebe absent. BACK/EXTREMITIES: Edema 0+. NEUROLOGICAL: Alert and motor intact. SKIN: LYMPHATICS: LABORATORY DATA: Reviewed. ASSESSMENT AND PLAN: 1. Stage chronic kidney disease, continue hemodialysis. 2. Hypertension, stable. 3. Anemia, stable. 4. Medication based on GFR appropriate. Job ID: [id number]
[2018-10-01 09:26] LABS: Vancomycin, Random 5.8 ug/mL (See Comment)
[2018-10-01] MEDS ORDERED: Lidocaine 5% Patch TD SCH (10:07)
[2018-10-01] MEDS ORDERED: Vancomycin HCl 750 MG in Sodium Chloride 0.9% 250 ML 250 ML IVPB SCH (12:00)
[2018-10-01] MEDS ORDERED: Vancomycin HCl 250 MG in Sodium Chloride 0.9% 100 ML IVPB SCH (12:00)
[2018-10-01] MEDS ORDERED: Vancomycin HCl 500 MG in Sodium Chloride 0.9% 100 ML IVPB SCH (12:00)
[2018-10-01] MEDS ORDERED: Vancomycin HCl 1 GM in Premix Bag 1 BAG IVPB SCH (12:00)
[2018-10-01] MEDS ORDERED: Vancomycin Sliding Scale 1 EACH FS ONE (12:00)
[2018-10-01] MEDS ORDERED: Midazolam HCl 2 mg/2 ml Vial ONE (14:37)
--- NOTE | 2018-10-01 14:37 | PDOC.HOSPP ---
- Subjective Subjective: pt up in bed wants to go home - Objective Vital Signs & Weight: Vital Signs (12 hours) Temp Pulse Pulse Pulse Resp BP BP 10/01/18 11:37 98.5 F 73 16 10/01/18 09:30 10/01/18 09:23 78 135/87 10/01/18 09:22 78 135/87 10/01/18 08:27 78 69 135/87 10/01/18 07:59 98.4 F 75 16 10/01/18 03:45 99.1 F 81 17 BP BP Pulse Ox 10/01/18 11:37 134/82 95 10/01/18 09:30 95 10/01/18 09:23 10/01/18 09:22 10/01/18 08:27 152/83 H 10/01/18 07:59 113/60 95 10/01/18 03:45 144/96 H 97 Weight Admit Weight 145 lb Weight 145 lb I&O: 09/30/18 10/01/18 10/02/18 06:59 06:59 06:59 Intake Total 837 Balance 837 Result Diagrams: 09/29/18 19:35 09/29/18 10:15 Additional Labs: Accuchecks 10/01/18 10/01/18 09/30/18 11:07 05:54 20:00 POC Glucose 108 122 H 192 H 09/30/18 17:15 POC Glucose 141 H ROS - Review of Systems All systems: All other ROS were reviewed and found negative. ENT: denies: ear pain, ear discharge, nose pain, nose discharge, nose congestion , mouth pain, mouth swelling, throat pain, throat swelling, other Respiratory: denies: cough, dry, shortness of breath, hemoptysis, SOB with excertion, pleuritic pain, sputum, wheezing, other Cardiovascular: denies: chest pain, palpitations, orthopnea, paroxysmal noc. dyspnea, edema, light headedness, other - Medication Medications: Active Medications Generic Name Dose Route Start Last Admin Trade Name Freq PRN Reason Stop Dose Admin Acetaminophen 650 mg 09/27/18 19:39 09/30/18 03:59 Tylenol PO 650 mg Q4H PRN Administration Headache/Fever/Mild Pain (1-3) Aspirin 81 mg 09/28/18 09:00 10/01/18 09:22 Aspirin Chewable PO 81 mg DAILY ROBBIE Administration Atorvastatin Calcium 40 mg 09/29/18 08:18 09/30/18 22:26 Lipitor PO 40 mg QPM ROBBIE Administration Calcium Carbonate 1,000 mg 09/27/18 19:39 09/30/18 02:02 Tums PO 1,000 mg Q4H PRN Administration Heartburn or Indigestion Carvedilol 3.125 mg 09/29/18 08:00 10/01/18 05:59 Coreg PO 3.125 mg BID-WM ROBBIE Administration Cholecalciferol 2,000 units 09/27/18 21:00 10/01/18 09:22 Vitamin D3 PO 2,000 units BID ROBBIE Administration Famotidine 20 mg 09/28/18 09:00 10/01/18 09:22 Pepcid PO 20 mg DAILY ROBBIE Administration Folic Acid 1 mg 09/28/18 09:00 10/01/18 09:22 Folvite PO 1 mg DAILY ROBBIE Administration Hydralazine HCl 25 mg 09/28/18 21:00 10/01/18 09:22 Apresoline PO 25 mg TID ROBBIE Administration Lisinopril 5 mg 09/29/18 09:00 10/01/18 09:23 Zestril PO 5 mg DAILY ROBBIE Administration Loperamide HCl 2 mg 09/28/18 22:29 09/30/18 02:01 Imodium PO 10/01/18 22:30 2 mg ONE PRN Administration Diarrhea/Loose Stools - Exam Neck: negative: supple, symmetric, no JVD, no Thyromegaly, no lymphadenopathy, no carotid bruit, JVD Heart: negative: RRR, no murmur, no gallops, no rubs, normal peripheral pulses, irregular, diminshed peripheral pulses, murmur present, II/IV, III/IV Respiratory: negative: CTAB, no wheezes, no rales, no ronchi, normal chest expansion, no tachypnea, normal percussion, rales, rhonchi, tachypneic, wheezes Hosp A/P (1) Hypotension Status: Acute (2) Renal cyst Code(s): N28.1 - CYST OF KIDNEY, ACQUIRED Status: Acute (3) CAD (coronary artery disease) Code(s): I25.10 - ATHSCL HEART DISEASE OF [place] CORONARY ARTERY W/O ANG PCTRS Status: Chronic Qualifiers: Coronary Disease-Associated Artery/Lesion type: [place] artery [place] vs. transplanted heart: [place] heart Associated angina: without angina Qualified Code(s): I25.10 - Atherosclerotic heart disease of [place] coronary artery without angina pectoris (4) Stroke Code(s): I63.9 - CEREBRAL INFARCTION, UNSPECIFIED Status: Acute (5) Weakness of lower extremity Code(s): R29.898 - OTH SYMPTOMS AND SIGNS INVOLVING THE MUSCULOSKELETAL SYSTEM Status: Acute - Plan pt's MRI does not indicated fx. will see how she does ambulating. Her blood cx is contaminated. MRI indicates stroke. will continue asa/plavix. she would benefit from some rehab.
[2018-10-01] MEDS ORDERED: Fentanyl 100 MCG/2 ML VIAL ONE (14:38)
--- NOTE | 2018-10-01 16:09 | PRG ---
DATE OF SERVICE: 10/01/2018 Ms. Pereira surgery was scheduled today for right arm fistula, however, was postponed due to emergencies. The patient be rescheduled on Thursday. This surgery would be mid morning for right arm fistula. She understands the risks and benefits and consents. I have talked with the patient's relative, Denisa, to inform her of such she is pending rehab screening. If she is approved for rehab, the patient's surgery can be done on Thursday or postpone to a later date. If she goes home, this can be postponed for a later date electively. In addition, the patient has thrombus around right IJ catheter. This does not need anticoagulation treatment. I have discussed with manager acute to agree. Job ID: [id number]
[2018-10-01 19:39] LABS: Hemoglobin 8.8 g/dL (12.0-16.0); Platelet Count 301 thou/uL (130-400)
[2018-10-01] MEDS: Atorvastatin Calcium 40 MG TAB PO SCH (20:30)
[2018-10-01] MEDS: Acetaminophen 325 MG TAB PO PRN (20:59)
[2018-10-01] MEDS: Lidocaine Patch Removal 1 EACH TOP SCH (21:04)
[2018-10-02] MEDS: Lidocaine 5% Patch TD SCH (09:58)
[2018-10-02] MEDS: Acetaminophen 325 MG TAB PO PRN (09:58)
--- NOTE | 2018-10-02 10:19 | PRG ---
DATE OF SERVICE: 10/02/2018 SUBJECTIVE: A 58-year-old female, being seen for end-stage renal disease. The patient denied any nausea, vomiting, or chest pain. OBJECTIVE: GENERAL: The patient is awake and alert. VITAL SIGNS: Afebrile, pulse 74, breathing 16, blood pressure 147/89. GENERAL APPEARANCE AND MENTAL STATUS: Fair. HEAD/NECK: Normocephalic. Atraumatic. EYES: EOMI. No deformity. EARS: Clear. No ulcers. NOSE: Intact. No lesions. MOUTH: Clear. No discharge. THROAT: Clear. No exudate. LUNGS: Clear. No crackles. CARDIAC: S1, S2. No rub. ABDOMEN: Benign. Bowel sounds positive. GENITALIA/RECTUM: Beebe absent. BACK/EXTREMITIES: Edema 0+. NEUROLOGICAL: Alert and motor intact. SKIN: LYMPHATICS: LABORATORY DATA: Hemoglobin 8.2. ASSESSMENT AND PLAN: 1. Stage 6 chronic kidney disease, plan on dialysis. 2. Hypertension, stable. 3. Anemia, stable. Medications based on GFR appropriate. Job ID: [id number]
[2018-10-02] MEDS ORDERED: Aspirin 81 mg Enteric Coated Tablet PO SCH (11:00)
[2018-10-02] MEDS: HumaLOG 300 UNITS/3 ML VIAL SC PRN (12:34)
--- NOTE | 2018-10-02 15:00 | PDOC.HOSPP ---
- Subjective Subjective: pt up in bed wants to go home. sister by bedside was updated on her sister's medical problems. she did complains of pain to her lower ext bilaterally. - Objective Vital Signs & Weight: Vital Signs (12 hours) Temp Pulse Resp BP BP Pulse Ox 10/02/18 11:20 97.8 F 70 16 153/78 H 96 10/02/18 08:19 98.1 F 74 16 147/89 H 96 10/02/18 07:45 96 10/02/18 04:00 98.3 F 81 18 161/78 H 96 Weight Admit Weight 145 lb Weight 145 lb I&O: 10/01/18 10/02/18 10/03/18 06:59 06:59 06:59 Intake Total 837 120 Balance 837 120 Result Diagrams: 10/01/18 19:33 10/01/18 16:32 Additional Labs: Accuchecks 10/02/18 10/02/18 10/01/18 11:01 06:18 20:01 POC Glucose 170 H 148 H 165 H 10/01/18 17:01 POC Glucose 98 ROS - Review of Systems All systems: All other ROS were reviewed and found negative. Respiratory: denies: cough, dry, shortness of breath, hemoptysis, SOB with excertion, pleuritic pain, sputum, wheezing, other Cardiovascular: denies: chest pain, palpitations, orthopnea, paroxysmal noc. dyspnea, edema, light headedness, other Gastrointestinal: denies: nausea, vomitting, abdominal pain, diarrhea, constipation, melena, hematochezia, other - Medication Medications: Active Medications Generic Name Dose Route Start Last Admin Trade Name Samyq PRN Reason Stop Dose Admin Acetaminophen 650 mg 09/27/18 19:39 10/02/18 09:58 Tylenol PO 650 mg Q4H PRN Administration Headache/Fever/Mild Pain (1-3) Aspirin 81 mg 09/28/18 09:00 10/01/18 09:22 Aspirin Chewable PO 81 mg DAILY ROBBIE Administration Atorvastatin Calcium 40 mg 09/29/18 08:18 10/01/18 20:30 Lipitor PO 40 mg QPM ROBBIE Administration Calcium Carbonate 1,000 mg 09/27/18 19:39 09/30/18 02:02 Tums PO 1,000 mg Q4H PRN Administration Heartburn or Indigestion Carvedilol 3.125 mg 09/29/18 08:00 10/01/18 17:31 Coreg PO 3.125 mg BID-WM [facility]BIE Administration Cholecalciferol 2,000 units 09/27/18 21:00 10/01/18 20:30 Vitamin D3 PO 2,000 units BID [facility] Administration Famotidine 20 mg 09/28/18 09:00 10/01/18 09:22 Pepcid PO 20 mg DAILY [facility] Administration Folic Acid 1 mg 09/28/18 09:00 10/01/18 09:22 Folvite PO 1 mg DAILY [facility] Administration Hydralazine HCl 25 mg 09/28/18 21:00 10/01/18 20:29 Apresoline PO 25 mg TID ROBBIE Administration Insulin Human Lispro 0 units 09/27/18 19:39 10/02/18 12:34 Humalog SC 2 unit .MILD SLIDING SCALE PRN Administration Mild Correctional Scale Lidocaine 1 patch 10/02/18 09:00 10/02/18 09:58 Lidoderm 5% Patch TD 1 patch DAILY [facility] Administration Lisinopril 5 mg 09/29/18 09:00 10/01/18 09:23 Zestril PO 5 mg DAILY ROBBIE Administration Miscellaneous Medication 0 each 10/01/18 21:00 10/01/18 21:04 Lidocaine Patch Removal TOP Not Given [address] [facility] - Exam Heart: negative: RRR, no murmur, no gallops, no rubs, normal peripheral pulses, irregular, diminshed peripheral pulses, murmur present, II/IV, III/IV Respiratory: negative: CTAB, no wheezes, no rales, no ronchi, normal chest expansion, no tachypnea, normal percussion, rales, rhonchi, tachypneic, wheezes Hosp A/P (1) Hypotension Status: Acute (2) Renal cyst Code(s): N28.1 - CYST OF KIDNEY, ACQUIRED Status: Acute (3) CAD (coronary artery disease) Code(s): I25.10 - ATHSCL HEART DISEASE OF [place] CORONARY ARTERY W/O ANG PCTRS Status: Chronic Qualifiers: Coronary Disease-Associated Artery/Lesion type: [place] artery [place] vs. transplanted heart: [place] heart Associated angina: without angina Qualified Code(s): I25.10 - Atherosclerotic heart disease of [place] coronary artery without angina pectoris (4) Stroke Code(s): I63.9 - CEREBRAL INFARCTION, UNSPECIFIED Status: Acute (5) Weakness of lower extremity Code(s): R29.898 - OTH SYMPTOMS AND SIGNS INVOLVING THE MUSCULOSKELETAL SYSTEM Status: Acute - Plan i will decrease her dose of statin to her home dose. per family pt was using a walker to ambulate and need rehab. I did discuss mri no fx. will continue asa/ statin for stroke.
[2018-10-02 15:07] LABS: Anion Gap 14 mmol/L (10-20); BUN (Urea Nitrogen) 41 mg/dL (9.8-20.1); Calc. Creatinine Clearance 16 mL/min (70-130); Calcium 8.6 mg/dL (7.8-10.44); Carbon Dioxide 23 mmol/L (22-29); Chloride 98 mmol/L (98-107); Estimated GFR-MDRD 14; Glucose 156 mg/dL (70-105); Potassium 3.5 mmol/L (3.5-5.1); Sodium 131 mmol/L (136-145)
[2018-10-02] MEDS: hydrALAZINE 25 MG TAB PO SCH ×2 (18:35→20:33)
[2018-10-02] MEDS: Carvedilol 3.125 MG TAB PO SCH (18:35)
[2018-10-02] MEDS: Famotidine 20 MG TAB PO SCH (18:35)
[2018-10-02] MEDS: Aspirin Chewable 81 MG TAB PO SCH (18:35)
[2018-10-02] MEDS: Folic Acid 1 MG TAB PO SCH (18:35)
[2018-10-02] MEDS: Lisinopril 5 MG TAB PO SCH (18:36)
[2018-10-02] MEDS: Lidocaine Patch Removal 1 EACH TOP SCH (20:42)
[2018-10-02] MEDS ORDERED: Atorvastatin Calcium 40 MG TAB PO SCH (21:00)
[2018-10-02] MEDS: Atorvastatin Calcium 10 MG TAB PO SCH (21:17)
[2018-10-03] MEDS: Folic Acid 1 MG TAB PO SCH (09:01)
[2018-10-03] MEDS: hydrALAZINE 25 MG TAB PO SCH ×3 (09:01→21:29)
[2018-10-03] MEDS: Carvedilol 3.125 MG TAB PO SCH ×2 (09:03→18:25)
[2018-10-03] MEDS: Aspirin Chewable 81 MG TAB PO SCH (09:03)
[2018-10-03] MEDS: Lisinopril 5 MG TAB PO SCH (09:03)
[2018-10-03] MEDS: Famotidine 20 MG TAB PO SCH (09:04)
[2018-10-03] MEDS: Lidocaine 5% Patch TD SCH (09:04)
--- NOTE | 2018-10-03 11:31 | PRG ---
DATE OF SERVICE: 10/03/2018 SUBJECTIVE: This is a 58-year-old female, being seen for end-stage renal disease. The patient denied any nausea, vomiting, or chest pain. OBJECTIVE: CONSTITUTIONAL: The patient is awake, alert. VITAL SIGNS: Afebrile, pulse 85, breathing 16, blood pressure 120/78. GENERAL APPEARANCE AND MENTAL STATUS: Fair. HEAD/NECK: Normocephalic. Atraumatic. EYES: EOMI. No deformity. EARS: Clear. No ulcers. NOSE: Intact. No lesions. MOUTH: Clear. No discharge. THROAT: Clear. No exudate. LUNGS: Clear. No crackles. CARDIAC: S1, S2. No rub. ABDOMEN: Benign. Bowel sounds positive. GENITALIA/RECTUM: [place] absent. BACK/EXTREMITIES: Edema 0+. NEUROLOGICAL: Alert and motor intact. SKIN: LYMPHATICS: LABORATORY DATA: Reviewed. ASSESSMENT AND PLAN: 1. Stage chronic kidney disease. Continue hemodialysis schedule. 2. Hypertension, stable. 3. Anemia, stable. 4. Medication based on GFR, appropriate. Job ID: [id number]
[2018-10-03] MEDS: HumaLOG 300 UNITS/3 ML VIAL SC PRN ×2 (11:38→18:24)
[2018-10-03] MEDS: Ondansetron PF 4 MG/2 ML Vial IVP PRN (13:16)
[2018-10-03] MEDS ORDERED: Heparin 1,000 UNITS/ML VIAL ONE (13:19)
[2018-10-03] MEDS ORDERED: Loperamide HCl 1 MG/7.5 ML UDCUP PO PRN (17:05)
[2018-10-03] MEDS ORDERED: Loperamide HCl 2 MG CAP PO PRN (19:54)
[2018-10-03 19:56] LABS: Hemoglobin 8.6 g/dL (12.0-16.0); Platelet Count 281 thou/uL (130-400)
[2018-10-03] MEDS: Atorvastatin Calcium 10 MG TAB PO SCH (21:29)
[2018-10-03] MEDS: Lidocaine Patch Removal 1 EACH TOP SCH (21:29)
[2018-10-04] MEDS ORDERED: Levofloxacin 500 mg/D5W 100 ml Premix Bag ONE (08:44)
[2018-10-04] MEDS ORDERED: Lidocaine 2% PF 5 ML VIAL ONE (08:46)
[2018-10-04] MEDS ORDERED: Protamine Sulfate 50 MG/5 ML VIAL ONE (08:46)
[2018-10-04] MEDS ORDERED: Heparin 5,000 UNITS/ML VIAL ONE (08:46)
[2018-10-04] MEDS ORDERED: Bupivacaine HCl 0.5%/Epinephrine 1:200,000/PF 30 ml Vial ONE ×2 (08:46→11:35)
[2018-10-04] MEDS ORDERED: Fentanyl 100 MCG/2 ML VIAL ONE (08:53)
[2018-10-04] MEDS ORDERED: Propofol 500 MG/50 ML VIAL ONE (08:58)
[2018-10-04] MEDS ORDERED: Ondansetron HCl/PF 4 MG/2 ML Vial IVP PRN (09:51)
[2018-10-04] MEDS ORDERED: Promethazine HCl 25 MG/ML VIAL IM PRN (09:51)
[2018-10-04] MEDS ORDERED: Promethazine HCl 25 MG/ML VIAL SLOW IVP PRN (09:51)
[2018-10-04] MEDS ORDERED: HYDROmorphone 2 MG/ML VIAL SLOW IVP PRN (09:51)
[2018-10-04] MEDS ORDERED: Heparin 10,000 UNITS/ 10 ML VIAL ONE (11:11)
[2018-10-04] MEDS ORDERED: PROPOFOL 200 MG/20 ML VIAL ONE (12:45)
[2018-10-04] MEDS ORDERED: PHENYLEPHRINE-NS 100 MCG/ML 10 ML SYRINGE ONE (12:45)
[2018-10-04] MEDS ORDERED: Ondansetron PF 4 MG/2 ML Vial ONE (12:45)
[2018-10-04] MEDS: hydrALAZINE 25 MG TAB PO SCH ×3 (14:30→20:47)
[2018-10-04] MEDS: Carvedilol 3.125 MG TAB PO SCH ×2 (14:31→18:38)
--- NOTE | 2018-10-04 15:33 | PRG ---
DATE OF SERVICE: 10/04/2018 SUBJECTIVE: Patient was seen and examined at bedside and overnight events noted. Patient denies any shortness of breath or chest pain or palpitation. No history of nausea or vomiting or diarrhea or fever or chills or cramps. OBJECTIVE: GENERAL: This is a well-built female, in no apparent distress. VITAL SIGNS: Temperature 97.8. Heart rate 82. Respiratory rate 18. Blood pressure 153/100. HEENT: Atraumatic, normocephalic. Oral mucosa is moist NECK: Supple. CARDIOVASCULAR: S1, S2 heard. Rate and rhythm regular. RESPIRATORY: Clear to auscultation. GASTROINTESTINAL: Abdomen is soft. MUSCULOSKELETAL: No tenderness. No edema. DERMATOLOGIC: No skin rash. NEUROLOGIC: Alert and awake and oriented X3. No focal neurologic deficits. Moving all the extremities. PSYCHIATRIC: Mood and affect normal. LABORATORY DATA: Not done today. ASSESSMENT: 1. End-stage renal disease. Continue on dialysis as tolerated. The patient was seen during dialysis. 2. Hypertension. 3. Anemia. 4. Edema. PLAN: To continue on dialysis as tolerated. We will follow. Job ID: [id number]
--- NOTE | 2018-10-04 16:39 | PDOC.HOSPP ---
- Subjective Subjective: pt up in bed no complains - Objective Vital Signs & Weight: Vital Signs (12 hours) Temp Pulse Resp BP Pulse Ox 10/04/18 14:30 82 10/04/18 11:35 97.8 F 82 18 153/100 H 100 10/04/18 08:00 97.7 F 78 18 158/93 H 98 Weight Admit Weight 145 lb Weight 145 lb I&O: 10/03/18 10/04/18 10/05/18 06:59 06:59 06:59 Intake Total 510 1320 Balance 510 1320 Result Diagrams: 10/03/18 19:39 10/02/18 14:21 Additional Labs: Accuchecks 10/04/18 10/04/18 10/03/18 12:40 06:16 20:19 POC Glucose 103 103 131 H 10/03/18 16:42 POC Glucose 163 H ROS - Review of Systems All systems: All other ROS were reviewed and found negative. Respiratory: denies: cough, dry, shortness of breath, hemoptysis, SOB with excertion, pleuritic pain, sputum, wheezing, other Cardiovascular: denies: chest pain, palpitations, orthopnea, paroxysmal noc. dyspnea, edema, light headedness, other - Medication Medications: Active Medications Generic Name Dose Route Start Last Admin Trade Name Freq PRN Reason Stop Dose Admin Aspirin 81 mg 09/28/18 09:00 10/03/18 09:03 Aspirin Chewable PO 81 mg DAILY ROBBIE Administration Atorvastatin Calcium 10 mg 10/02/18 21:00 10/03/18 21:29 Lipitor PO 10 mg QPM ROBBIE Administration Calcium Carbonate 1,000 mg 09/27/18 19:39 09/30/18 02:02 Tums PO 1,000 mg Q4H PRN Administration Heartburn or Indigestion Carvedilol 3.125 mg 09/29/18 08:00 10/04/18 14:31 Coreg PO Not Given BID-[facility] Cholecalciferol 2,000 units 09/27/18 21:00 10/03/18 21:28 Vitamin D3 PO 2,000 units BID [facility] Administration Famotidine 20 mg 09/28/18 09:00 10/03/18 09:04 Pepcid PO 20 mg DAILY [facility] Administration Folic Acid 1 mg 09/28/18 09:00 10/03/18 09:01 Folvite PO 1 mg DAILY ROBBIE Administration Hydralazine HCl 25 mg 09/28/18 21:00 10/04/18 14:30 Apresoline PO Not Given TID [facility] Insulin Human Lispro 0 units 09/27/18 19:39 10/03/18 18:24 Humalog SC 2 unit .MILD SLIDING SCALE PRN Administration Mild Correctional Scale Lidocaine 1 patch 10/02/18 09:00 10/03/18 09:04 Lidoderm 5% Patch TD 1 patch DAILY ROBBIE Administration Lisinopril 5 mg 09/29/18 09:00 10/03/18 09:03 Zestril PO 5 mg DAILY ROBBIE Administration Loperamide HCl 2 mg 10/03/18 19:54 10/03/18 21:29 Imodium PO 2 mg Q4H PRN Administration Diarrhea/Loose Stools Miscellaneous Medication 0 each 10/01/18 21:00 10/03/18 21:29 Lidocaine Patch Removal TOP 1 each 2100 [facility] Administration Ondansetron HCl 4 mg 09/27/18 19:39 10/03/18 13:16 Zofran IVP 4 mg Q6H PRN Administration Nausea/Vomiting - Exam Heart: negative: RRR, no murmur, no gallops, no rubs, normal peripheral pulses, irregular, diminshed peripheral pulses, murmur present, II/IV, III/IV Respiratory: negative: CTAB, no wheezes, no rales, no ronchi, normal chest expansion, no tachypnea, normal percussion, rales, rhonchi, tachypneic, wheezes Gastrointestinal: negative: soft, non-tender, non-distended, normal bowel sounds , no palpable masses, no hepatomegaly, no splenomegaly, no bruit, tender to palpation, distended, diminished bowl sounds, voluntary guarding Hosp A/P (1) Hypotension Status: Acute (2) Renal cyst Code(s): N28.1 - CYST OF KIDNEY, ACQUIRED Status: Acute (3) CAD (coronary artery disease) Code(s): I25.10 - ATHSCL HEART DISEASE OF [place] CORONARY ARTERY W/O ANG PCTRS Status: Chronic Qualifiers: Coronary Disease-Associated Artery/Lesion type: [place] artery [place] vs. transplanted heart: [place] heart Associated angina: without angina Qualified Code(s): I25.10 - Atherosclerotic heart disease of [place] coronary artery without angina pectoris (4) Stroke Code(s): I63.9 - CEREBRAL INFARCTION, UNSPECIFIED Status: Acute (5) Weakness of lower extremity Code(s): R29.898 - [place] SYMPTOMS AND SIGNS INVOLVING THE MUSCULOSKELETAL SYSTEM Status: Acute - Plan will continue current tx. family wants pt to go to rehab. continue dialysis. No AC for right jugular thrombus per renal and surgery. blood cx is contaminate.
--- NOTE | 2018-10-04 16:44 | PDOC.HOSPP ---
- Subjective Subjective: pt up in bed no complains - Objective Vital Signs & Weight: Vital Signs (12 hours) Temp Pulse Resp BP Pulse Ox 10/04/18 14:30 82 10/04/18 11:35 97.8 F 82 18 153/100 H 100 10/04/18 08:00 97.7 F 78 18 158/93 H 98 Weight Admit Weight 145 lb Weight 145 lb I&O: 10/03/18 10/04/18 10/05/18 06:59 06:59 06:59 Intake Total 510 1320 Balance 510 1320 Result Diagrams: 10/03/18 19:39 10/02/18 14:21 Additional Labs: Accuchecks 10/04/18 10/04/18 10/03/18 12:40 06:16 20:19 POC Glucose 103 103 131 H 10/03/18 16:42 POC Glucose 163 H ROS - Review of Systems All systems: All other ROS were reviewed and found negative. Respiratory: denies: cough, dry, shortness of breath, hemoptysis, SOB with excertion, pleuritic pain, sputum, wheezing, other Cardiovascular: denies: chest pain, palpitations, orthopnea, paroxysmal noc. dyspnea, edema, light headedness, other Gastrointestinal: denies: nausea, vomitting, abdominal pain, diarrhea, constipation, melena, hematochezia, other - Medication Medications: Active Medications Generic Name Dose Route Start Last Admin Trade Name Freq PRN Reason Stop Dose Admin Aspirin 81 mg 09/28/18 09:00 10/03/18 09:03 Aspirin Chewable PO 81 mg DAILY [facility] Administration Atorvastatin Calcium 10 mg 10/02/18 21:00 10/03/18 21:29 Lipitor PO 10 mg QPM ROBBIE Administration Calcium Carbonate 1,000 mg 09/27/18 19:39 09/30/18 02:02 Tums PO 1,000 mg Q4H PRN Administration Heartburn or Indigestion Carvedilol 3.125 mg 09/29/18 08:00 10/04/18 14:31 Coreg PO Not Given BID-[facility] Cholecalciferol 2,000 units 09/27/18 21:00 10/03/18 21:28 Vitamin D3 PO 2,000 units BID [facility] Administration Famotidine 20 mg 09/28/18 09:00 08/04/19 09:04 Pepcid PO 20 mg DAILY ROBBIE Administration Folic Acid 1 mg 09/28/18 09:00 10/03/18 09:01 Folvite PO 1 mg DAILY ROBBIE Administration Hydralazine HCl 25 mg 09/28/18 21:00 10/04/18 14:30 Apresoline PO Not Given TID [facility] Insulin Human Lispro 0 units 09/27/18 19:39 10/03/18 18:24 Humalog SC 2 unit .MILD SLIDING SCALE PRN Administration Mild Correctional Scale Lidocaine 1 patch 10/02/18 09:00 10/03/18 09:04 Lidoderm 5% Patch TD 1 patch DAILY ROBBIE Administration Lisinopril 5 mg 09/29/18 09:00 10/03/18 09:03 Zestril PO 5 mg DAILY ROBBIE Administration Loperamide HCl 2 mg 10/03/18 19:54 10/03/18 21:29 Imodium PO 2 mg Q4H PRN Administration Diarrhea/Loose Stools Miscellaneous Medication 0 each 10/01/18 21:00 10/03/18 21:29 Lidocaine Patch Removal TOP 1 each 2100 [facility] Administration Ondansetron HCl 4 mg 09/27/18 19:39 10/03/18 13:16 Zofran IVP 4 mg Q6H PRN Administration Nausea/Vomiting - Exam Respiratory: negative: CTAB, no wheezes, no rales, no ronchi, normal chest expansion, no tachypnea, normal percussion, rales, rhonchi, tachypneic, wheezes Hosp A/P (1) Hypotension Status: Acute (2) Renal cyst Code(s): N28.1 - CYST OF KIDNEY, ACQUIRED Status: Acute (3) CAD (coronary artery disease) Code(s): I25.10 - ATHSCL HEART DISEASE OF [place] CORONARY ARTERY W/O ANG PCTRS Status: Chronic Qualifiers: Coronary Disease-Associated Artery/Lesion type: [place] artery [place] vs. transplanted heart: [place] heart Associated angina: without angina Qualified Code(s): I25.10 - Atherosclerotic heart disease of [place] coronary artery without angina pectoris (4) Stroke Code(s): I63.9 - CEREBRAL INFARCTION, UNSPECIFIED Status: Acute (5) Weakness of lower extremity Code(s): R29.898 - [facility] SYMPTOMS AND SIGNS INVOLVING THE MUSCULOSKELETAL SYSTEM Status: Acute - Plan no AC, will continue asa/plavix/statin. She needs rehab. ESRD on dialysis. pt has a right internal jugular thrombus no AC per surgery and renal.
[2018-10-04] MEDS ORDERED: Clopidogrel Bisulfate 75 MG TAB PO SCH (17:00)
--- NOTE | 2018-10-04 17:39 | OP ---
DATE OF PROCEDURE: 10/04/2018 PREOPERATIVE DIAGNOSIS: End-stage renal disease. POSTOPERATIVE DIAGNOSIS: End-stage renal disease. PROCEDURES PERFORMED: Right arm primary fistula, perforating branch antecubital vein to proximal radial artery outflow by anatomic considerations, primary cephalic vein upper arm secondary to basilic vein upper arm. ANESTHESIA: Regional, TIVA. 4-mm coronary dilator passed easily out of the cephalic vein outflow upper arm. DESCRIPTION OF PROCEDURE: The patient was taken to the operating room, where under regional anesthesia and IV sedation, right upper extremity was prepared with ChloraPrep and draped in routine fashion. Incision was made in the proximal volar forearm. Longitudinal incision was made below the antecubital fossa, carried down through the skin and subcutaneous tissue, and antecubital vein dissected free. Perforating branch of antecubital vein was of excellent size. Branches were divided between 4-0 silk ties and clips, spatulated over branch point. The patient was given 6000 units of heparin intravenously. The perforating branch of antecubital vein was interrogated with coronary dilators, passing coronary dilators from 2 mm to 4 mm coronary dilator out of the cephalic vein upper arm outflow without obstruction. Proximal radial artery dissected free, ulnar and brachial artery were identified. After adequate heparin circulation, proximal radial artery clamped proximally and distally. Longitudinal arteriotomy was made sharply, elongated with Santana scissors. An end perforating branch antecubital vein to side proximal radial artery anastomosis was created with continuous suture of 6-0 Prolene. At completion of anastomosis, vascular clamps were released. There was excellent flow in the cephalic and basilic vein outflow. Good hemostasis was noted. The patient was given 25 mg intravenously by Anesthesia. Subcutaneous tissue was approximated with 3-0 Monocryl, skin with subdermal 4-0 Monocryl, and [place] glue applied. Job ID: [id number]
[2018-10-04] MEDS ORDERED: Aspirin Chewable 81 MG TAB PO SCH (18:15)
[2018-10-04] MEDS ORDERED: Lisinopril 5 MG TAB PO SCH (18:15)
[2018-10-04] MEDS: Aspirin Chewable 81 MG TAB PO SCH (18:16)
[2018-10-04] MEDS: Folic Acid 1 MG TAB PO SCH (18:16)
[2018-10-04] MEDS: Famotidine 20 MG TAB PO SCH (18:16)
[2018-10-04] MEDS: Lisinopril 5 MG TAB PO SCH (18:17)
[2018-10-04] MEDS: Lidocaine 5% Patch TD SCH (18:17)
[2018-10-04] MEDS: Atorvastatin Calcium 10 MG TAB PO SCH (20:47)
[2018-10-04] MEDS: Lidocaine Patch Removal 1 EACH TOP SCH (20:47)
[2018-10-04] MEDS: traMADol HCl 50 MG TAB PO PRN (20:49)
[2018-10-05] MEDS: Famotidine 20 MG TAB PO SCH (09:46)
[2018-10-05] MEDS: Carvedilol 3.125 MG TAB PO SCH ×2 (09:47→16:38)
[2018-10-05] MEDS: Clopidogrel Bisulfate 75 MG TAB PO SCH (09:47)
[2018-10-05] MEDS: Aspirin Chewable 81 MG TAB PO SCH (09:47)
[2018-10-05] MEDS: Folic Acid 1 MG TAB PO SCH (09:47)
[2018-10-05] MEDS: Lidocaine 5% Patch TD SCH (09:48)
[2018-10-05] MEDS: hydrALAZINE 25 MG TAB PO SCH ×3 (09:50→20:22)
[2018-10-05] MEDS: Lisinopril 5 MG TAB PO SCH (09:50)
--- NOTE | 2018-10-05 13:30 | EKG ---
Test Reason : HYPOTENSION/WEAKNESS Blood Pressure : / mmHG Vent. Rate : 066 BPM Atrial Rate : 066 BPM P-R Int : 176 ms QRS Dur : 120 ms QT Int : 458 ms P-R-T Axes : 056 -17 125 degrees QTc Int : 480 ms Normal sinus rhythm Incomplete left bundle branch block Abnormal ECG Confirmed by MAMIE JACOB DO ([id number]), graphics editor WILLA CASTRO ([id number]) on 10/05/2018 1:29:40 PM Referred By: KOLTON Confirmed By:MAMIE JACOB DO
--- NOTE | 2018-10-05 15:11 | PRG ---
DATE OF SERVICE: 10/05/2018 SUBJECTIVE: Patient was seen and examined at bedside and overnight events noted. Patient denies any shortness of breath or chest pain or palpitation. No history of nausea or vomiting or diarrhea or fever or chills or cramps. OBJECTIVE: GENERAL: This is a well-built female, in no apparent distress. VITAL SIGNS: Temperature 96.8. Heart rate 93. Respiratory rate 18. Blood pressure 147/86. HEENT: Atraumatic, normocephalic. Oral mucosa is moist NECK: Supple. CARDIOVASCULAR: S1, S2 heard. Rate and rhythm regular. RESPIRATORY: Clear to auscultation. GASTROINTESTINAL: Abdomen is soft. MUSCULOSKELETAL: No tenderness. No edema. DERMATOLOGIC: No skin rash. NEUROLOGIC: Alert and awake and oriented X3. No focal neurologic deficits. Moving all the extremities. PSYCHIATRIC: Mood and affect normal. LABORATORY DATA: Not done today. ASSESSMENT AND PLAN: 1. End-stage renal disease. Continue on dialysis as tolerated. 2. Hypertension, stable. 3. Anemia. 4. Edema. PLAN: To continue on dialysis as tolerated. Job ID: [id number]
[2018-10-05 20:01] LABS: Hemoglobin 9.3 g/dL (12.0-16.0); Platelet Count 282 thou/uL (130-400)
[2018-10-05] MEDS: Atorvastatin Calcium 10 MG TAB PO SCH (20:22)
--- NOTE | 2018-10-05 20:45 | PDOC.HOSPP ---
- Subjective Subjective: Feels ok. No complaints. - Objective Vital Signs & Weight: Vital Signs (12 hours) Temp Pulse Pulse Pulse Resp BP BP 10/05/18 20:22 92 105/77 10/05/18 20:00 98.0 F 92 19 10/05/18 16:37 10/05/18 16:10 97.7 F 86 18 10/05/18 14:44 93 121/84 10/05/18 13:32 10/05/18 11:50 96.8 F L 93 18 10/05/18 10:17 97 94 114/82 10/05/18 09:50 101 H 99/73 BP BP BP Pulse Ox 10/05/18 20:22 10/05/18 20:00 105/77 95 10/05/18 16:37 141/88 H 10/05/18 16:10 176/99 H 95 10/05/18 14:44 10/05/18 13:32 147/86 H 10/05/18 11:50 96/71 93 L 10/05/18 10:17 107/72 10/05/18 09:50 Weight Admit Weight 145 lb Weight 145 lb I&O: 10/04/18 10/05/18 10/06/18 06:59 06:59 06:59 Intake Total 1320 240 510 Output Total 1600 Balance 1320 -1360 510 Result Diagrams: 10/05/18 19:51 10/02/18 14:21 Additional Labs: Accuchecks 10/05/18 10/05/18 10/05/18 16:48 10:49 05:53 POC Glucose 121 H 162 H 126 H 10/04/18 20:37 POC Glucose 159 H ROS - Review of Systems All systems: All other ROS were reviewed and found negative. - Medication Medications: Active Medications Generic Name Dose Route Start Last Admin Trade Name Freq PRN Reason Stop Dose Admin Aspirin 81 mg 09/28/18 09:00 10/05/18 09:47 Aspirin Chewable PO 81 mg DAILY [facility] Administration Atorvastatin Calcium 10 mg 10/02/18 21:00 10/05/18 20:22 Lipitor PO 10 mg QPM ROBBIE Administration Calcium Carbonate 1,000 mg 09/27/18 19:39 09/30/18 02:02 Tums PO 1,000 mg Q4H PRN Administration Heartburn or Indigestion Carvedilol 3.125 mg 09/29/18 08:00 10/05/18 16:38 Coreg PO 3.125 mg BID-[facility] Administration Cholecalciferol 2,000 units 09/27/18 21:00 10/05/18 20:23 Vitamin D3 PO 2,000 units BID [facility] Administration Clopidogrel Bisulfate 75 mg 10/05/18 09:00 10/05/18 09:47 Plavix PO 75 mg DAILY [facility] Administration Famotidine 20 mg 09/28/18 09:00 10/05/18 09:46 Pepcid PO 20 mg DAILY [facility] Administration Folic Acid 1 mg 09/28/18 09:00 10/05/18 09:47 Folvite PO 1 mg DAILY [facility] Administration Hydralazine HCl 25 mg 09/28/18 21:00 10/05/18 20:22 Apresoline PO 25 mg TID [facility] Administration Insulin Human Lispro 0 units 09/27/18 19:39 10/03/18 18:24 Humalog SC 2 unit .MILD SLIDING SCALE PRN Administration Mild Correctional Scale Lidocaine 1 patch 10/02/18 09:00 10/05/18 09:48 Lidoderm 5% Patch TD Not Given DAILY [facility] Lisinopril 5 mg 09/29/18 09:00 10/05/18 09:50 Zestril PO Not Given DAILY [facility] Loperamide HCl 2 mg 10/03/18 19:54 10/03/18 21:29 Imodium PO 2 mg Q4H PRN Administration Diarrhea/Loose Stools Miscellaneous Medication 0 each 10/01/18 21:00 10/04/18 20:47 Lidocaine Patch Removal TOP 1 each 2100 [facility] Administration Ondansetron HCl 4 mg 09/27/18 19:39 10/03/18 13:16 Zofran IVP 4 mg Q6H PRN Administration Nausea/Vomiting Sodium Chloride 10 ml 10/04/18 21:00 10/05/18 20:24 Flush - Normal Saline IVF 10 ml Q12HR [facility] Administration Tramadol HCl 50 mg 10/04/18 10:52 10/04/18 20:49 Ultram PO 50 mg Q4H PRN Administration Pain - Exam NAD, awake alert Neck: supple, symmetric Heart: RRR, no murmur, no gallops, no rubs, normal peripheral pulses Respiratory: CTAB, no wheezes, no rales, no ronchi, normal chest expansion, no tachypnea, normal percussion Gastrointestinal: soft, non-tender, non-distended, normal bowel sounds, no palpable masses, no hepatomegaly, no splenomegaly, no bruit Neurological: CN's grossly intact, normal sensation to touch, no weakness, no focal deficits, no new deficit Musculoskeletal: generalized weakness Psychiatric: normal affect, normal behavior, A&O x 3 Hosp A/P (1) Hypotension Status: Acute (2) Weakness of lower extremity Code(s): R29.898 - OTH SYMPTOMS AND SIGNS INVOLVING THE MUSCULOSKELETAL SYSTEM Status: Acute (3) CAD (coronary artery disease) Code(s): I25.10 - ATHSCL HEART DISEASE OF [place] CORONARY ARTERY W/O ANG PCTRS Status: Chronic Qualifiers: Coronary Disease-Associated Artery/Lesion type: [place] artery [place] vs. transplanted heart: [place] heart Associated angina: without angina Qualified Code(s): I25.10 - Atherosclerotic heart disease of [place] coronary artery without angina pectoris (4) Dyslipidemia Code(s): E78.5 - HYPERLIPIDEMIA, UNSPECIFIED Status: Chronic (5) H/O: CVA (cerebrovascular accident) Code(s): Z86.73 - PRSNL HX OF TIA (TIA), AND CEREB INFRC W/O RESID DEFICITS Status: Chronic (6) HTN (hypertension) Code(s): I10 - ESSENTIAL (PRIMARY) HYPERTENSION Status: Chronic Qualifiers: Hypertension type: essential hypertension Qualified Code(s): I10 - Essential (primary) hypertension (7) Dehydration Code(s): E86.0 - DEHYDRATION Status: Acute - Plan Presented with dehydration and related hypotension. Workup otherwise negative. Stable for DC. Working on placement.
[2018-10-05] MEDS: Ondansetron PF 4 MG/2 ML Vial IVP PRN (21:21)
[2018-10-05] MEDS: Lidocaine Patch Removal 1 EACH TOP SCH (21:23)
[2018-10-06 05:23] LABS: Anion Gap 14 mmol/L (10-20); BUN (Urea Nitrogen) 19 mg/dL (9.8-20.1); Calc. Creatinine Clearance 19 mL/min (70-130); Calcium 9.3 mg/dL (7.8-10.44); Carbon Dioxide 27 mmol/L (22-29); Chloride 97 mmol/L (98-107); Estimated GFR-MDRD 17; Glucose 97 mg/dL (70-105); Potassium 4.4 mmol/L (3.5-5.1); Sodium 134 mmol/L (136-145)
[2018-10-06] MEDS: hydrALAZINE 25 MG TAB PO SCH ×3 (09:19→21:51)
[2018-10-06] MEDS: Famotidine 20 MG TAB PO SCH (09:19)
[2018-10-06] MEDS: Aspirin Chewable 81 MG TAB PO SCH (09:19)
[2018-10-06] MEDS: Folic Acid 1 MG TAB PO SCH (09:19)
[2018-10-06] MEDS: Carvedilol 3.125 MG TAB PO SCH ×2 (09:19→19:13)
[2018-10-06] MEDS: Lisinopril 5 MG TAB PO SCH (09:19)
[2018-10-06] MEDS: Clopidogrel Bisulfate 75 MG TAB PO SCH (09:20)
[2018-10-06] MEDS: Lidocaine 5% Patch TD SCH (09:20)
--- NOTE | 2018-10-06 11:14 | PRG ---
DATE OF SERVICE: 10/06/2018 SUBJECTIVE: Patient was seen and examined at bedside and overnight events noted. Patient denies any shortness of breath or chest pain or palpitation. No history of nausea or vomiting or diarrhea or fever or chills or cramps. OBJECTIVE: GENERAL: This is a well-built female, in no apparent distress. VITAL SIGNS: Temperature 98.3. Pulse 85. Respiratory rate 16. Blood pressure 116/76. HEENT: Atraumatic, normocephalic. Oral mucosa is moist NECK: Supple. CARDIOVASCULAR: S1, S2 heard. Rate and rhythm regular. RESPIRATORY: Clear to auscultation. GASTROINTESTINAL: Abdomen is soft. MUSCULOSKELETAL: No tenderness. No edema. DERMATOLOGIC: No skin rash. NEUROLOGIC: Alert and awake and oriented X3. No focal neurologic deficits. Moving all the extremities. PSYCHIATRIC: Mood and affect normal. LABORATORY DATA: Potassium 4.4, BUN 19, creatinine is 3.4. ASSESSMENT AND PLAN: 1. End-stage renal disease. Continue dialysis as tolerated. 2. Hypertension. 3. Anemia. 4. Edema. PLAN: Plan to continue on dialysis as tolerated. Job ID: [id number]
[2018-10-06] MEDS: Acetaminophen 500 MG TAB PO PRN (12:43)
[2018-10-06] MEDS: Ondansetron PF 4 MG/2 ML Vial IVP PRN (21:52)
[2018-10-06] MEDS: traMADol HCl 50 MG TAB PO PRN (21:52)
[2018-10-06] MEDS: Atorvastatin Calcium 10 MG TAB PO SCH (21:52)
--- NOTE | 2018-10-06 22:31 | PDOC.HOSPP ---
- Subjective Subjective: No complaints. Understands the process of working on placement. - Objective Vital Signs & Weight: Vital Signs (12 hours) Temp Pulse Resp BP BP Pulse Ox 10/06/18 21:51 81 124/76 10/06/18 18:30 97.5 F L 81 16 111/84 93 L 10/06/18 14:41 87 10/06/18 11:53 98.2 F 87 18 117/82 94 L Weight Admit Weight 145 lb Weight 145 lb I&O: 10/05/18 10/06/18 10/07/18 06:59 06:59 06:59 Intake Total 240 990 810 Output Total 1600 300 Balance -1360 990 510 Result Diagrams: 10/05/18 19:51 10/06/18 04:19 Additional Labs: Accuchecks 10/06/18 10/06/18 10:43 05:38 POC Glucose 166 H 103 ROS - Medication Medications: Active Medications Generic Name Dose Route Start Last Admin Trade Name Freq PRN Reason Stop Dose Admin Acetaminophen 1,000 mg 10/04/18 10:52 10/06/18 12:43 Tylenol PO 1,000 mg Q6H PRN Administration Moderate to Severe Pain (6-10) Aspirin 81 mg 09/28/18 09:00 10/06/18 09:19 Aspirin Chewable PO 81 mg DAILY ROBBIE Administration Atorvastatin Calcium 10 mg 10/02/18 21:00 10/06/18 21:52 Lipitor PO 10 mg QPM ROBBIE Administration Calcium Carbonate 1,000 mg 09/27/18 19:39 09/30/18 02:02 Tums PO 1,000 mg Q4H PRN Administration Heartburn or Indigestion Carvedilol 3.125 mg 09/29/18 08:00 10/06/18 19:13 Coreg PO 3.125 mg BID-WM ROBBIE Administration Cholecalciferol 2,000 units 09/27/18 21:00 10/06/18 21:51 Vitamin D3 PO 2,000 units BID ROBBIE Administration Clopidogrel Bisulfate 75 mg 10/05/18 09:00 10/06/18 09:20 Plavix PO 75 mg DAILY ROBBIE Administration Famotidine 20 mg 09/28/18 09:00 10/06/18 09:19 Pepcid PO 20 mg DAILY ROBBIE Administration Folic Acid 1 mg 09/28/18 09:00 10/06/18 09:19 Folvite PO 1 mg DAILY ROBBIE Administration Hydralazine HCl 25 mg 09/28/18 21:00 10/06/18 21:51 Apresoline PO 25 mg TID ROBBIE Administration Insulin Human Lispro 0 units 09/27/18 19:39 10/03/18 18:24 Humalog SC 2 unit .MILD SLIDING SCALE PRN Administration Mild Correctional Scale Lidocaine 1 patch 10/02/18 09:00 10/06/18 09:20 Lidoderm 5% Patch TD Not Given DAILY [facility] Lisinopril 5 mg 09/29/18 09:00 10/06/18 09:19 Zestril PO 5 mg DAILY ROBBIE Administration Loperamide HCl 2 mg 10/03/18 19:54 10/03/18 21:29 Imodium PO 2 mg Q4H PRN Administration Diarrhea/Loose Stools Miscellaneous Medication 0 each 10/01/18 21:00 10/05/18 21:23 Lidocaine Patch Removal TOP Not Given 2100 [facility] Ondansetron HCl 4 mg 09/27/18 19:39 10/06/18 21:52 Zofran IVP 4 mg Q6H PRN Administration Nausea/Vomiting Sodium Chloride 10 ml 10/04/18 21:00 10/06/18 21:56 Flush - Normal Saline IVF 10 ml Q12HR ROBBIE Administration Sodium Chloride 10 ml 10/04/18 09:59 10/06/18 21:55 Flush - Normal Saline IVF 10 ml PRN PRN Administration Saline Flush Tramadol HCl 50 mg 10/04/18 10:52 10/06/18 21:52 Ultram PO 50 mg Q4H PRN Administration Pain - Exam NAD Neck: supple, symmetric, no JVD, no thyromegaly, no lymphadenopathy, no carotid bruit Heart: RRR, no murmur, no gallops, no rubs, normal peripheral pulses Respiratory: CTAB, no wheezes, no rales, no ronchi, normal chest expansion, no tachypnea, normal percussion Gastrointestinal: soft, non-tender, non-distended, normal bowel sounds, no palpable masses, no hepatomegaly, no splenomegaly, no bruit Skin: normal turgor, no lesions, no rashes Neurological: CN's grossly intact, normal sensation to touch, no weakness, no focal deficits, no new deficit Psychiatric: normal affect Hosp A/P (1) Hypotension Status: Acute (2) Weakness of lower extremity Code(s): R29.898 - OTH SYMPTOMS AND SIGNS INVOLVING THE MUSCULOSKELETAL SYSTEM Status: Acute (3) CAD (coronary artery disease) Code(s): I25.10 - ATHSCL HEART DISEASE OF [place] CORONARY ARTERY W/O ANG PCTRS Status: Chronic Qualifiers: Coronary Disease-Associated Artery/Lesion type: [place] artery [place] vs. transplanted heart: [place] heart Associated angina: without angina Qualified Code(s): I25.10 - Atherosclerotic heart disease of [place] coronary artery without angina pectoris (4) Dyslipidemia Code(s): E78.5 - HYPERLIPIDEMIA, UNSPECIFIED Status: Chronic (5) H/O: CVA (cerebrovascular accident) Code(s): Z86.73 - PRSNL HX OF TIA (TIA), AND CEREB INFRC W/O RESID DEFICITS Status: Chronic (6) HTN (hypertension) Code(s): I10 - ESSENTIAL (PRIMARY) HYPERTENSION Status: Chronic Qualifiers: Hypertension type: essential hypertension Qualified Code(s): I10 - Essential (primary) hypertension (7) Dehydration Code(s): E86.0 - DEHYDRATION Status: Acute - Plan Medically stable. Working DC plans. Denied by several facilities so far. D/W CM. Continue HD while here.
[2018-10-07] MEDS: Lidocaine Patch Removal 1 EACH TOP SCH ×2 (06:42→21:12)
[2018-10-07] MEDS: Folic Acid 1 MG TAB PO SCH (08:26)
[2018-10-07] MEDS: Lisinopril 5 MG TAB PO SCH (08:26)
[2018-10-07] MEDS: Aspirin Chewable 81 MG TAB PO SCH (08:26)
[2018-10-07] MEDS: Famotidine 20 MG TAB PO SCH (08:26)
[2018-10-07] MEDS: Clopidogrel Bisulfate 75 MG TAB PO SCH (08:26)
[2018-10-07] MEDS: Carvedilol 3.125 MG TAB PO SCH ×2 (08:26→16:53)
[2018-10-07] MEDS: hydrALAZINE 25 MG TAB PO SCH ×3 (08:27→21:08)
[2018-10-07] MEDS: Lidocaine 5% Patch TD SCH (08:33)
--- NOTE | 2018-10-07 11:40 | PRG ---
DATE OF SERVICE: 10/07/2018 SUBJECTIVE: Patient was seen and examined at bedside and overnight events noted. Patient denies any shortness of breath or chest pain or palpitation. No history of nausea or vomiting or diarrhea or fever or chills or cramps. OBJECTIVE: GENERAL: This is a well-built female in no apparent distress. VITAL SIGNS: Temperature Heart rate 91. Respiratory rate 16. Blood pressure . HEENT: Atraumatic, normocephalic. Oral mucosa is moist NECK: Supple. CARDIOVASCULAR: S1, S2 heard. Rate and rhythm regular. RESPIRATORY: Clear to auscultation. GASTROINTESTINAL: Abdomen is soft. MUSCULOSKELETAL: No tenderness. No edema. DERMATOLOGIC: No skin rash. NEUROLOGIC: Alert and awake and oriented X3. No focal neurologic deficits. Moving all the extremities. PSYCHIATRIC: Mood and affect normal. LABORATORY DATA: Potassium is 4.4, BUN is 19, and creatinine is 3.4. ASSESSMENT/PLAN: 1. End-stage renal disease. Continue on dialysis Thursday, Thursday, Thursday. 2. Hypertension. 3. Anemia. 4. Edema. Remove fluid. 5. We will continue on dialysis, Thursday, Thursday, Thursday as tolerated. Job ID: [id number]
[2018-10-07 13:27] LABS: #Lymphocytes 2.4 thou/uL (1.20-3.40); #Monocytes 0.5 thou/uL (0.11-0.59); #Neutrophils 5.1 thou/uL (1.40-6.50); %Basophils 0.5 % (0.0-1.0); %Eosinophils 0.3 % (0.0-10.0); %Lymphocytes 29.7 % (21.0-51.0); %Monocytes 6.2 % (0.0-10.0); %Neutrophils 63.4 % (42.0-75.0); Hemoglobin 9.2 g/dL (12.0-16.0); Mean Corpuscular HGB CONC 32.5 g/dL (32.0-36.0); Mean Corpuscular Hemoglobin 30.5 pg (27.0-31.0); Mean Corpuscular Volume 93.6 fL (78.0-98.0); Mean Platelet Volume 6.7 fL (7.4-10.4); Platelet Count 284 thou/uL (130-400); RBC Distribution Width 11.9 % (11.5-14.5); Red Blood Cell (RBC) Count 3.01 mill/uL (4.20-5.40)
[2018-10-07 13:54] LABS: ALT (SGPT) 11 U/L (8-55); AST (SGOT) 20 U/L (5-34); Albumin 2.9 g/dL (3.5-5.0); Alkaline Phosphatase 364 U/L (40-150); Anion Gap 13 mmol/L (10-20); BUN (Urea Nitrogen) 13 mg/dL (9.8-20.1); Bilirubin, Total 0.4 mg/dL (0.2-1.2); Calc. Creatinine Clearance 23 mL/min (70-130); Calcium 9.2 mg/dL (7.8-10.44); Carbon Dioxide 26 mmol/L (22-29); Chloride 97 mmol/L (98-107); Estimated GFR-MDRD 21; Globulin 4.8 g/dL (2.4-3.5); Glucose 145 mg/dL (70-105); Potassium 4.3 mmol/L (3.5-5.1); Protein, Total 7.7 g/dL (6.0-8.3); Sodium 132 mmol/L (136-145)
--- NOTE | 2018-10-07 16:28 | PDOC.HOSPP ---
- Subjective Subjective: Feels ok. No new complaints. Had an episode of vomiting this morning. No more nausea. - Objective Vital Signs & Weight: Vital Signs (12 hours) Temp Pulse Pulse Pulse Resp BP BP 10/07/18 15:47 83 10/07/18 15:42 97.8 F 83 17 10/07/18 12:00 98.4 F 85 17 10/07/18 08:43 106 H 91 107/78 10/07/18 08:27 91 10/07/18 08:26 91 109/77 10/07/18 08:00 10/07/18 07:55 97.5 F L 91 16 BP BP Pulse Ox 10/07/18 15:47 10/07/18 15:42 114/63 98 10/07/18 12:00 91/62 94 L 10/07/18 08:43 97/67 10/07/18 08:27 10/07/18 08:26 10/07/18 08:00 96 10/07/18 07:55 124/80 89 L Weight Admit Weight 145 lb Weight 145 lb I&O: 10/06/18 10/07/18 10/08/18 06:59 06:59 06:59 Intake Total 990 1500 Output Total 300 Balance 990 1200 Result Diagrams: 10/07/18 13:17 10/07/18 13:17 Additional Labs: Accuchecks 10/07/18 10/07/18 10:46 05:33 POC Glucose 166 H 147 H ROS - Medication Medications: Active Medications Generic Name Dose Route Start Last Admin Trade Name Freq PRN Reason Stop Dose Admin Acetaminophen 1,000 mg 10/04/18 10:52 10/06/18 12:43 Tylenol PO 1,000 mg Q6H PRN Administration Moderate to Severe Pain (6-10) Aspirin 81 mg 09/28/18 09:00 10/07/18 08:26 Aspirin Chewable PO 81 mg DAILY ROBBIE Administration Atorvastatin Calcium 10 mg 10/02/18 21:00 10/06/18 21:52 Lipitor PO 10 mg QPM ROBBIE Administration Calcium Carbonate 1,000 mg 09/27/18 19:39 09/30/18 02:02 Tums PO 1,000 mg Q4H PRN Administration Heartburn or Indigestion Carvedilol 3.125 mg 09/29/18 08:00 10/07/18 08:26 Coreg PO 3.125 mg BID-WM [facility] Administration Cholecalciferol 2,000 units 09/27/18 21:00 10/07/18 08:25 Vitamin D3 PO 2,000 units BID [facility] Administration Clopidogrel Bisulfate 75 mg 10/05/18 09:00 10/07/18 08:26 Plavix PO 75 mg DAILY [facility] Administration Famotidine 20 mg 09/28/18 09:00 10/07/18 08:26 Pepcid PO 20 mg DAILY [facility] Administration Folic Acid 1 mg 09/28/18 09:00 10/07/18 08:26 Folvite PO 1 mg DAILY [facility] Administration Hydralazine HCl 25 mg 09/28/18 21:00 10/07/18 15:47 Apresoline PO Not Given TID [facility] Insulin Human Lispro 0 units 09/27/18 19:39 10/03/18 18:24 Humalog SC 2 unit .MILD SLIDING SCALE PRN Administration Mild Correctional Scale Lidocaine 1 patch 10/02/18 09:00 10/07/18 08:33 Lidoderm 5% Patch TD Not Given DAILY [facility] Lisinopril 5 mg 09/29/18 09:00 10/07/18 08:26 Zestril PO Not Given DAILY [facility] Loperamide HCl 2 mg 10/03/18 19:54 10/03/18 21:29 Imodium PO 2 mg Q4H PRN Administration Diarrhea/Loose Stools Miscellaneous Medication 0 each 10/01/18 21:00 10/07/18 06:42 Lidocaine Patch Removal TOP Not Given 2100 [facility] Ondansetron HCl 4 mg 09/27/18 19:39 10/06/18 21:52 Zofran IVP 4 mg Q6H PRN Administration Nausea/Vomiting Sodium Chloride 10 ml 10/04/18 21:00 10/07/18 08:39 Flush - Normal Saline IVF 10 ml Q12HR ROBBIE Administration Sodium Chloride 10 ml 10/04/18 09:59 10/06/18 21:55 Flush - Normal Saline IVF 10 ml PRN PRN Administration Saline Flush Tramadol HCl 50 mg 10/04/18 10:52 10/06/18 21:52 Ultram PO 50 mg Q4H PRN Administration Pain - Exam NAD, awake alert Heart: RRR, no murmur, no gallops, no rubs, normal peripheral pulses Respiratory: CTAB, no wheezes, no rales, no ronchi, normal chest expansion, no tachypnea, normal percussion Gastrointestinal: soft, non-tender, non-distended, normal bowel sounds, no palpable masses, no hepatomegaly, no splenomegaly, no bruit Neurological: CN's grossly intact Musculoskeletal: generalized weakness Psychiatric: normal affect Hosp A/P (1) Hypotension Status: Acute (2) Weakness of lower extremity Code(s): R29.898 - OTH SYMPTOMS AND SIGNS INVOLVING THE MUSCULOSKELETAL SYSTEM Status: Acute (3) CAD (coronary artery disease) Code(s): I25.10 - ATHSCL HEART DISEASE OF [place] CORONARY ARTERY W/O ANG PCTRS Status: Chronic Qualifiers: Coronary Disease-Associated Artery/Lesion type: [place] artery [place] vs. transplanted heart: [place] heart Associated angina: without angina Qualified Code(s): I25.10 - Atherosclerotic heart disease of [place] coronary artery without angina pectoris (4) Dyslipidemia Code(s): E78.5 - HYPERLIPIDEMIA, UNSPECIFIED Status: Chronic (5) HTN (hypertension) Code(s): I10 - ESSENTIAL (PRIMARY) HYPERTENSION Status: Chronic Qualifiers: Hypertension type: essential hypertension Qualified Code(s): I10 - Essential (primary) hypertension (6) Dehydration Code(s): E86.0 - DEHYDRATION Status: Acute (7) Stroke Code(s): I63.9 - CEREBRAL INFARCTION, UNSPECIFIED Status: Acute - Plan Medically stable. Working DC plans. Family met with CM and want to consider home with OP therapy. Will need wheelchair. Continue PT. Continue HD while here.
[2018-10-07] MEDS: Atorvastatin Calcium 10 MG TAB PO SCH (21:07)
--- NOTE | 2018-10-08 08:15 | PDOC.HOSPP ---
- Subjective Encounter Date: 10/08/18 Encounter Time: 08:14 Subjective: Doing fine. No complaints. Says she thinks she is ready to go home. Says she has help at home. Eating and drinking well. - Objective Vital Signs & Weight: Vital Signs (12 hours) Temp Pulse Resp BP BP Pulse Ox 10/08/18 07:50 97.5 F L 88 16 131/86 93 L 10/08/18 04:00 98.1 F 80 16 121/72 90 L 10/08/18 00:00 97.9 F 85 16 120/76 91 L 10/07/18 21:08 76 134/73 Weight Admit Weight 145 lb Weight 145 lb I&O: 10/07/18 10/08/18 10/09/18 06:59 06:59 06:59 Intake Total 1500 1027 Output Total 300 0 Balance 1200 1027 Result Diagrams: 10/07/18 13:17 10/07/18 13:17 Additional Labs: Accuchecks 10/08/18 10/07/18 10/07/18 06:11 20:17 16:46 POC Glucose 87 112 H 160 H 10/07/18 10:46 POC Glucose 166 H ROS - Medication Medications: Active Medications Generic Name Dose Route Start Last Admin Trade Name Freq PRN Reason Stop Dose Admin Acetaminophen 1,000 mg 10/04/18 10:52 10/06/18 12:43 Tylenol PO 1,000 mg Q6H PRN Administration Moderate to Severe Pain (6-10) Aspirin 81 mg 09/28/18 09:00 10/07/18 08:26 Aspirin Chewable PO 81 mg DAILY ROBBIE Administration Atorvastatin Calcium 10 mg 10/02/18 21:00 10/07/18 21:07 Lipitor PO 10 mg QPM ROBBIE Administration Calcium Carbonate 1,000 mg 09/27/18 19:39 09/30/18 02:02 Tums PO 1,000 mg Q4H PRN Administration Heartburn or Indigestion Carvedilol 3.125 mg 09/29/18 08:00 10/07/18 16:53 Coreg PO 3.125 mg BID-WM ROBBIE Administration Cholecalciferol 2,000 units 09/27/18 21:00 10/07/18 21:07 Vitamin D3 PO 2,000 units BID ROBBIE Administration Clopidogrel Bisulfate 75 mg 10/05/18 09:00 10/07/18 08:26 Plavix PO 75 mg DAILY [facility]BIE Administration Famotidine 20 mg 09/28/18 09:00 10/07/18 08:26 Pepcid PO 20 mg DAILY ROBBIE Administration Folic Acid 1 mg 09/28/18 09:00 10/07/18 08:26 Folvite PO 1 mg DAILY [facility] Administration Hydralazine HCl 25 mg 09/28/18 21:00 10/07/18 21:08 Apresoline PO 25 mg TID ROBBIE Administration Insulin Human Lispro 0 units 09/27/18 19:39 10/03/18 18:24 Humalog SC 2 unit .MILD SLIDING SCALE PRN Administration Mild Correctional Scale Lidocaine 1 patch 10/02/18 09:00 10/07/18 08:33 Lidoderm 5% Patch TD Not Given DAILY [facility] Lisinopril 5 mg 09/29/18 09:00 10/07/18 08:26 Zestril PO Not Given DAILY [facility] Loperamide HCl 2 mg 10/03/18 19:54 10/03/18 21:29 Imodium PO 2 mg Q4H PRN Administration Diarrhea/Loose Stools Miscellaneous Medication 0 each 10/01/18 21:00 10/07/18 21:12 Lidocaine Patch Removal TOP Not Given 2100 [facility] Ondansetron HCl 4 mg 09/27/18 19:39 10/06/18 21:52 Zofran IVP 4 mg Q6H PRN Administration Nausea/Vomiting Sodium Chloride 10 ml 10/04/18 21:00 10/07/18 21:09 Flush - Normal Saline IVF 10 ml Q12HR ROBBIE Administration Sodium Chloride 10 ml 10/04/18 09:59 10/06/18 21:55 Flush - Normal Saline IVF 10 ml PRN PRN Administration Saline Flush Tramadol HCl 50 mg 10/04/18 10:52 10/06/18 21:52 Ultram PO 50 mg Q4H PRN Administration Pain - Exam NAD, awake alert Heart: RRR, no murmur, no gallops, no rubs, normal peripheral pulses Respiratory: CTAB, no wheezes, no rales, no ronchi, normal chest expansion, no tachypnea, normal percussion Gastrointestinal: soft, non-tender, non-distended, normal bowel sounds, no palpable masses, no hepatomegaly, no splenomegaly, no bruit Skin: normal turgor Musculoskeletal: generalized weakness Hosp A/P (1) Stroke Code(s): I63.9 - CEREBRAL INFARCTION, UNSPECIFIED Status: Acute (2) Hypotension Status: Acute (3) Weakness of lower extremity Code(s): R29.898 - [place] SYMPTOMS AND SIGNS INVOLVING THE MUSCULOSKELETAL SYSTEM Status: Acute (4) CAD (coronary artery disease) Code(s): I25.10 - ATHSCL HEART DISEASE OF [place] CORONARY ARTERY W/O ANG PCTRS Status: Chronic Qualifiers: Coronary Disease-Associated Artery/Lesion type: [place] artery [place] vs. transplanted heart: [place] heart Associated angina: without angina Qualified Code(s): I25.10 - Atherosclerotic heart disease of [place] coronary artery without angina pectoris (5) Dyslipidemia Code(s): E78.5 - HYPERLIPIDEMIA, UNSPECIFIED Status: Chronic (6) HTN (hypertension) Code(s): I10 - ESSENTIAL (PRIMARY) HYPERTENSION Status: Chronic Qualifiers: Hypertension type: essential hypertension Qualified Code(s): I10 - Essential (primary) hypertension (7) Dehydration Code(s): E86.0 - DEHYDRATION Status: Acute (8) Encephalomalacia Code(s): G93.89 - OTHER SPECIFIED DISORDERS OF BRAIN Status: Acute - Plan Medically stable. Working DC plans. Family met with CM and want to consider home with OP therapy. Will need wheelchair. Continue PT. Continue HD while here.
--- NOTE | 2018-10-08 09:03 | PDOC.EVN ---
Event Note - Event Note Event Note: Plan is to go home with PT/OT as OP. She will need a wheelchair to function at home. She cannot adequately ambulate due to LE weakness relate to the CVA and encephalomalacia.
[2018-10-08] MEDS ORDERED: Heparin 1,000 UNITS/ML VIAL ONE (11:11)
--- NOTE | 2018-10-08 11:19 | PRG ---
DATE OF SERVICE: 10/08/2018 SUBJECTIVE: Patient was seen and examined at bedside and overnight events noted. Patient denies any shortness of breath or chest pain or palpitation. No history of nausea or vomiting or diarrhea or fever or chills or cramps. OBJECTIVE: GENERAL: This is a well-built female, in no apparent distress. VITAL SIGNS: Temperature 98.1. Heart rate 88. Respiratory rate 16. Blood pressure 121/72. HEENT: Atraumatic, normocephalic. Oral mucosa is moist NECK: Supple. CARDIOVASCULAR: S1, S2 heard. Rate and rhythm regular. RESPIRATORY: Clear to auscultation. GASTROINTESTINAL: Abdomen is soft. MUSCULOSKELETAL: No tenderness. No edema. DERMATOLOGIC: No skin rash. NEUROLOGIC: Alert and awake and oriented X3. No focal neurologic deficits. Moving all the extremities. PSYCHIATRIC: Mood and affect normal. LABORATORY DATA: Potassium 4.3, BUN is 13, creatinine 2.8. ASSESSMENT AND PLAN: 1. End-stage renal disease. Continue dialysis as tolerated on Thursday, Thursday, Thursday. 2. Hypertension. 3. Anemia. 4. Edema. We will remove fluid with dialysis. 5. Continue dialysis as tolerated. Job ID: [id number]
[2018-10-08] MEDS: Aspirin Chewable 81 MG TAB PO SCH (12:58)
[2018-10-08] MEDS: Famotidine 20 MG TAB PO SCH (12:58)
[2018-10-08] MEDS: Lisinopril 5 MG TAB PO SCH (12:58)
[2018-10-08] MEDS: Clopidogrel Bisulfate 75 MG TAB PO SCH (12:58)
[2018-10-08] MEDS: Folic Acid 1 MG TAB PO SCH (12:58)
[2018-10-08] MEDS: Lidocaine 5% Patch TD SCH (12:58)
[2018-10-08] MEDS: hydrALAZINE 25 MG TAB PO SCH ×3 (12:59→21:11)
[2018-10-08] MEDS: Carvedilol 3.125 MG TAB PO SCH ×2 (12:59→17:34)
[2018-10-08] MEDS: HumaLOG 300 UNITS/3 ML VIAL SC PRN (21:09)
[2018-10-08] MEDS: Atorvastatin Calcium 10 MG TAB PO SCH (21:12)
[2018-10-08] MEDS: Lidocaine Patch Removal 1 EACH TOP SCH (21:59)
[2018-10-09] MEDS: Acetaminophen 500 MG TAB PO PRN ×2 (02:31→09:05)
[2018-10-09] MEDS: Aspirin Chewable 81 MG TAB PO SCH (08:57)
[2018-10-09] MEDS: Carvedilol 3.125 MG TAB PO SCH (08:58)
[2018-10-09] MEDS: Clopidogrel Bisulfate 75 MG TAB PO SCH (08:58)
[2018-10-09] MEDS: hydrALAZINE 25 MG TAB PO SCH (08:58)
[2018-10-09] MEDS: Famotidine 20 MG TAB PO SCH (08:58)
[2018-10-09] MEDS: Folic Acid 1 MG TAB PO SCH (08:58)
[2018-10-09] MEDS: Lidocaine 5% Patch TD SCH (08:59)
[2018-10-09] MEDS: Lisinopril 5 MG TAB PO SCH (08:59)
--- NOTE | 2018-10-09 10:00 | PRG ---
DATE OF SERVICE: 10/09/2018 SUBJECTIVE: Patient was seen and examined at bedside and overnight events noted. Patient denies any shortness of breath or chest pain or palpitation. No history of nausea or vomiting or diarrhea or fever or chills or cramps. OBJECTIVE: GENERAL: This is a well-built female, in no apparent distress. VITAL SIGNS: Temperature 98.0. Heart rate . Respiratory rate 14. Blood pressure 127/79. HEENT: Atraumatic, normocephalic. Oral mucosa is moist NECK: Supple. CARDIOVASCULAR: S1, S2 heard. Rate and rhythm regular. RESPIRATORY: Clear to auscultation. GASTROINTESTINAL: Abdomen is soft. MUSCULOSKELETAL: No tenderness. No edema. DERMATOLOGIC: No skin rash. NEUROLOGIC: Alert and awake and oriented X3. No focal neurologic deficits. Moving all the extremities. PSYCHIATRIC: Mood and affect normal. LABORATORY DATA: Not done today. ASSESSMENT AND PLAN: 1. End-stage renal disease. Continue dialysis on Thursday, Thursday, and Thursday. 2. Hypertension. 3. Anemia. PLAN: To continue dialysis as tolerated. Job ID: [id number]
[2018-10-09 11:39] VITALS: BP 106/76; TEMP 97.7
[2018-10-09] MEDS: HumaLOG 300 UNITS/3 ML VIAL SC PRN (12:51)
--- NOTE | 2018-10-09 18:28 | DIS ---
DATE OF ADMISSION: 09/27/2018 DATE OF DISCHARGE: 10/09/2018 DISCHARGE DIAGNOSES: 1. Hypotension. 2. Brief diarrheal illness. 3. Coronary artery disease. 4. End-stage renal disease, on dialysis. 5. Ischemic cardiomyopathy with EF of 40% to 45%. 6. Chronic small-vessel cerebral ischemia with encephalomalacia. 7. Thrombosed right IJ. 8. Possible compression fracture of L1, questionably chronic, found on CT. 9. 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 10. Possible mass versus lobulation in the left kidney with a followup CT scan recommended in 3 months for further followup. 11. Lower extremity weakness. HISTORY OF PRESENT ILLNESS: This patient is a 58-year-old female with end-stage renal disease, on hemodialysis, who presented to the hospital, complaining of generalized weakness. She apparently had hypotension following dialysis. Apparently, following dialysis, the patient was unable to walk due to weakness and had a BP of 90/30, and her initial blood pressure recorded by EMS was apparently 60/30. She received a couple of liters of fluid in the emergency department. Her blood pressure appeared to improve. HOSPITAL COURSE: The patient was admitted with generalized weakness and hypotension. She was seen in consultation by Dr. Jang and she was ultimately maintained on her dialysis regimen. She had some hypokalemia, which was repleted. She was seen by Dr. Moyer for Cardiology, who felt the patient likely did not have cardiac related disease. The patient continued to have weakness, had an MRI of the brain to investigate, which revealed acute punctate white matter infarction in the right frontal centrum semiovale with chronic small-vessel ischemic changes and cerebral volume loss, encephalomalacia and gliosis of the left occipital lobe and posterior left temporal lobe. Carotid Dopplers failed to show any significant obstructive disease. The patient had marking ultrasound obtained at the request of Surgery, which revealed a thrombosed subclavian vein with no intervention undertaken. She had lumbar CT, concerning for possible compression fracture and possible cord compromise. However, subsequent MRI only shown degenerative disease without compromise of the cord or nerve roots, and the patient underwent a fistula creation in the right arm, which she tolerated well, had no complications. She continued on dialysis. The patient continued to have profound weakness in her legs and difficulty ambulating. Therefore, I talked with her and her family. She felt she needed rehab. She was evaluated for rehab and multiple facilities were contacted. However, there was nothing within her insurance network that will work out, and therefore, ultimately the patient was discharged to home with a wheelchair and plans for outpatient physical therapy. PHYSICAL EXAMINATION: VITAL SIGNS: On the day of discharge, temperature was 97.7, pulse 84, respirations 16, O2 saturation 94%, BP 106/70. GENERAL: She was awake and alert. HEART: Regular rate and rhythm. LUNGS: Clear bilaterally. ABDOMEN: Soft, nontender, and nondistended. EXTREMITIES: No cyanosis, clubbing, or edema. Fistula site looked good. She was eager to be discharged to home. DISPOSITION: The patient is discharged to home in good condition. ACTIVITY: As tolerated. DIET: She will remain on a renal diet. MEDICATIONS: Home medications included; 1. Atorvastatin one p.o. at bedtime 10 mg. 2. Aspirin 81 mg daily. 3. Coreg 3.125 mg b.i.d. with meals. 4. Vitamin D3, 2000 units b.i.d. 5. Plavix 75 mg daily. 6. Hydralazine 25 mg t.i.d. 7. Isosorbide 10 mg t.i.d. 8. Lisinopril 5 mg daily. 9. Famotidine 20 mg daily. 10. Folic acid 1 mg p.o. daily. FOLLOWUP: She is to follow up with Dr. Choi and [facility] Physical Therapy. She should have follow up with her primary care provider and have followup imaging of the kidneys in 3 months. She can return to the hospital should she have any problems prior to that time. Total time in discharge activities including [id number] time with the patient was 37 minutes. Job ID: [id number]
== END 2018-10-09 14:18 | disposition home or self-care (01) | DRG 264 ==
LOC: ERS 12:57 → OBSVTOIN 19:21 → 2NO 19:21 → 2SE 09-29 15:20
PROVIDERS: ADMIT Internal Medicine; ATTEND Internal Medicine
PROC: 031B0ZF Bypass Right Radial Artery to Lower Arm Vein, Open Approach (ICD-10-PCS; principal; 2018-10-04)
PROC: 5A1D70Z Performance of Urinary Filtration, Intermittent, Less than 6 Hours Per Day (ICD-10-PCS; 2018-10-08)
DX: I95.9 Hypotension, unspecified (principal); N18.6 End stage renal disease; I12.0 Hypertensive chronic kidney disease with stage 5 chronic kidney disease or end stage renal disease; I82.C11 Acute embolism and thrombosis of right internal jugular vein; I24.9 Acute ischemic heart disease, unspecified; I67.82 Cerebral ischemia; G93.40 Encephalopathy, unspecified; E11.22 Type 2 diabetes mellitus with diabetic chronic kidney disease; E78.5 Hyperlipidemia, unspecified; J45.909 Unspecified asthma, uncomplicated; D64.9 Anemia, unspecified; E03.9 Hypothyroidism, unspecified; E87.6 Hypokalemia; I25.10 Atherosclerotic heart disease of native coronary artery without angina pectoris; I25.5 Ischemic cardiomyopathy; N28.1 Cyst of kidney, acquired; I34.0 Nonrheumatic mitral (valve) insufficiency; R19.7 Diarrhea, unspecified; G93.89 Other specified disorders of brain; E86.0 Dehydration; Z79.82 Long term (current) use of aspirin; Z79.02 Long term (current) use of antithrombotics/antiplatelets; Z88.0 Allergy status to penicillin; Z99.2 Dependence on renal dialysis; Z98.890 Other specified postprocedural states
CPT/HCPCS: 36415; 36416; 70551; 71045; 72131; 72148; 74177; 80048; 80053; 80069; 80202; 82330; 82550; 82553; 82803; 83605; 83630; 83690; 83880; 84132; 84443; 84484; 85014; 85018; 85025; 85049; 85730; 87040; 87149; 87324; 87449; 90935; 93005; 93880; 93970; 96374; G0257; G0365; J0670; J1644; J1650; J1956; J2001; J2250; J2405; J2704; J2720; J3010; J3370; J7050; Q9966

== ENCOUNTER 2018-10-14 20:36 | Emergency (ER) | payer MEDICARE, OTHER ==
[2018-10-14 21:35] LABS: Hemoglobin 9.1 g/dL (12.0-16.0); Mean Corpuscular HGB CONC 32.2 g/dL (32.0-36.0); Mean Corpuscular Hemoglobin 30.2 pg (27.0-31.0); Mean Corpuscular Volume 93.8 fL (78.0-98.0); Mean Platelet Volume 6.9 fL (7.4-10.4); Platelet Count 283 thou/uL (130-400); Red Blood Cell (RBC) Count 3.01 mill/uL (4.20-5.40); White Blood Cell (WBC) Count 9.9 thou/uL (4.8-10.8)
[2018-10-14 21:51] LABS: ALT (SGPT) 11 U/L (8-55); AST (SGOT) 17 U/L (5-34); Albumin 3.2 g/dL (3.5-5.0); Alkaline Phosphatase 312 U/L (40-150); Anion Gap 14 mmol/L (10-20); BUN (Urea Nitrogen) 12 mg/dL (9.8-20.1); Bilirubin, Total 0.4 mg/dL (0.2-1.2); Calc. Creatinine Clearance 0 mL/min (70-130); Calcium 9.1 mg/dL (7.8-10.44); Carbon Dioxide 23 mmol/L (22-29); Chloride 101 mmol/L (98-107); Estimated GFR-MDRD 18; Globulin 4.8 g/dL (2.4-3.5); Glucose 132 mg/dL (70-105); Potassium 3.1 mmol/L (3.5-5.1); Sodium 135 mmol/L (136-145)
[2018-10-14 21:53] LABS: Lymphocytes 24 % (21-51); MDiff Complete? YES; Monocytes 6 % (0-10); Neutrophil 69 % (42-75)
[2018-10-14] MEDS ORDERED: Pot Chloride/Pot Bicarb/Cit Ac 25 mEq Effervescent Tablet ONE (22:23)
== END 2018-10-15 00:16 | disposition home or self-care (01) ==
LOC: ERS 20:36
DX: R19.7 Diarrhea, unspecified (principal); I12.0 Hypertensive chronic kidney disease with stage 5 chronic kidney disease or end stage renal disease; E11.22 Type 2 diabetes mellitus with diabetic chronic kidney disease; N18.6 End stage renal disease; E78.5 Hyperlipidemia, unspecified; E78.00 Pure hypercholesterolemia, unspecified; J45.909 Unspecified asthma, uncomplicated; Z99.2 Dependence on renal dialysis; Z79.82 Long term (current) use of aspirin; Z79.01 Long term (current) use of anticoagulants; Z79.899 Other long term (current) drug therapy
CPT/HCPCS: 36415; 80053; 85025; 99284

== ENCOUNTER 2018-12-14 07:30 | Day surgery (SDC) | payer OTHER ==
[2018-12-13 11:52] VITALS: BMI 26.5
[2018-12-14 08:34] VITALS: BP 129/76; TEMP 97.9
--- NOTE | 2018-12-14 10:56 | SPC ---
Dialysis fistulogram right upper extremity Sonographic guided vascular access. HISTORY: Poor maturation of dialysis fistula. Renal failure. FINDINGS: After explaining the procedure and answering all questions, the right upper extremity was p repped and draped in usual sterile fashion. Sterile technique, buffered local anesthesia, sonographic guidance, and a 22-gauge needle were used to carefully access the cephalic fistula just a kane the level of the antecubital fossa. A 4 [place] micropuncture sheath was placed for imaging. Serial imaging performed. Cephalic outflow is widely patent with several medium-sized collateral vess els, including a significant collateral to the basilic vein at the level of the mid humeral shaft. Superior vena cava is patent. Reflux angiography shows a large antecubital fossa vein filling a large basilic vein. Again, several collaterals along the course of the basilic vein. Arterial anastomosis was not opacified due to the extensive outflow from both veins and the vigorous arterial inflow. Catheter was removed and hemostasis obtained using direct pressure. Patient tolerated the procedure w ell and was eventually dismissed in good condition. Fluoroscopy time 0.6 minutes. IMPRESSION: Right upper extremity dialysis fistula, with cephalic and basilic outflow, is widely howe nt with good arterial inflow. Multiple venous collaterals are present along the course of the cephalic and basilic veins. Findings were discussed with Dr. Choi at the time of the exam. Code CR.
[2018-12-14] MEDS ORDERED: Prevnar 13-Val Conj/PF 0.5 ML SYRINGE IM ONE (12:30)
[2018-12-14] MEDS ORDERED: FLU VACC QS2019-20(6MOS UP)/PF 60 MCG/0.5 ML SYRINGE IM ONE (12:30)
[2018-12-14] MEDS ORDERED: Heparin 1,000 UNITS/ML VIAL ONE (15:56)
== END 2018-12-14 09:10 | disposition home or self-care (01) ==
LOC: SPEC 07:30
PROVIDERS: ATTEND Specialist
PROC: B51W1ZZ Fluoroscopy of Dialysis Shunt/Fistula using Low Osmolar Contrast (ICD-10-PCS; principal; 2018-12-14)
DX: I12.0 Hypertensive chronic kidney disease with stage 5 chronic kidney disease or end stage renal disease (principal); E11.22 Type 2 diabetes mellitus with diabetic chronic kidney disease; N18.6 End stage renal disease; J45.909 Unspecified asthma, uncomplicated; I25.10 Atherosclerotic heart disease of native coronary artery without angina pectoris; E78.5 Hyperlipidemia, unspecified; Z79.02 Long term (current) use of antithrombotics/antiplatelets; Z79.2 Long term (current) use of antibiotics; Z79.82 Long term (current) use of aspirin; Z79.899 Other long term (current) drug therapy; Z88.0 Allergy status to penicillin; Z99.2 Dependence on renal dialysis
CPT/HCPCS: 36901; J1644